=== PATIENT | male | born 1940 | race Caucasian/White ===

== ENCOUNTER 2020-09-07 14:30 | Inpatient (IN) | payer MEDICARE, OTHER ==
[~2020-09-07] VITALS: Ht 172.7 cm; Wt 70.1 kg
[2020-09-07 16:05] VITALS: BP 124/68
[2020-09-07] MEDS ORDERED: PRIM50TA24 PO (16:14)
[2020-09-07] MEDS ORDERED: MAGN400O7 PO (16:14)
[2020-09-07] MEDS ORDERED: AMLO-186 PO (16:14)
[2020-09-07] MEDS ORDERED: OLAN10TA5 PO (16:14)
[2020-09-07] MEDS ORDERED: ALLO100T PO (16:14)
[2020-09-07] MEDS ORDERED: RISP0.5T24 PO (16:14)
[2020-09-07] MEDS ORDERED: LITH150C PO (16:14)
[2020-09-07] MEDS ORDERED: GABA600T7 PO (16:14)
[2020-09-07] MEDS ORDERED: NICO1PAT25 TP (16:14)
[2020-09-07] MEDS ORDERED: ATORVASTATIN CA80 MG PO (16:14)
[2020-09-07] MEDS ORDERED: PHEN28OI8 RC (16:14)
[2020-09-07] MEDS ORDERED: LITH300T3 PO (16:14)
[2020-09-07] MEDS ORDERED: MEMA10TA PO (16:14)
[2020-09-07] MEDS ORDERED: MENT118G TP (16:14)
[2020-09-07] MEDS ORDERED: ACET325T21 PO (16:14)
[2020-09-07 20:09] VITALS: BP 183/71
[2020-09-07] MEDS ORDERED: ACETAMINOPHEN 325 MG TABLET PO PRN (20:30)
[2020-09-07] MEDS ORDERED: MAGNESIUM HYDROXIDE 2,400 MG/30 ML ORAL.SUSP. PO PRN (20:30)
[2020-09-07] MEDS ORDERED: risperiDONE 0.5 MG TABLET. PO PRN (20:30)
[2020-09-07] MEDS ORDERED: MEMANTINE 10 MG TABLET. PO SCH (21:00)
[2020-09-07] MEDS ORDERED: LITHIUM CARBONATE 300 MG TABLET PO SCH ×2 (21:00)
[2020-09-07] MEDS ORDERED: ATORVASTATIN CALCIUM 20 MG TABLET PO SCH (21:00)
[2020-09-07] MEDS ORDERED: PRIMIDONE 50 MG TABLET PO SCH (21:00)
[2020-09-07] MEDS ORDERED: GABAPENTIN 300 MG CAPSULE. PO SCH (21:00)
[2020-09-07 21:57] LABS: BASO # 0.1 x10^3/uL (0.0-0.2); BASO % 2 % (0-3); EOS # 0.2 x10^3/uL (0.0-0.7); EOS % 3 % (0-3); HEMATOCRIT 27.3 % (39.0-53.0); HEMOGLOBIN 8.7 g/dL (13.0-17.5); LYMPH # 1.4 x10^3/uL (1.0-4.8); LYMPH % 21 % (24-48); MEAN CORPUSCULAR HEMOGLOBIN 30 pg (25-35); MEAN CORPUSCULAR HGB CONC 32 g/dL (31-37); MEAN CORPUSCULAR VOLUME 95 fL (79-100); MONO # 0.7 x10^3/uL (0.0-1.1); MONO % 10 % (0-9); NEUT # 4.2 x10^3uL (1.8-7.7); NEUT % 63 % (31-73); PLATELET COUNT 75 x10^3/uL (140-400); RED BLOOD COUNT 2.86 x10^6/uL (4.30-5.70); RED CELL DISTRIBUTION WIDTH 15.6 % (11.5-14.5); WHITE BLOOD COUNT 6.7 x10^3/uL (4.0-11.0)
[2020-09-07 22:07] LABS: ALBUMIN/GLOBULIN RATIO 0.8 (1.0-1.7); CALCIUM 8.2 mg/dL (8.5-10.1); CREATININE 1.5 mg/dL (0.7-1.3); GFR 45.4; MAGNESIUM 2.4 mg/dL (1.8-2.4); POTASSIUM 4.9 mmol/L (3.5-5.1); TOTAL BILIRUBIN 0.1 mg/dL (0.2-1.0); TOTAL PROTEIN 6.7 g/dL (6.4-8.2)
[2020-09-08] MEDS ORDERED: OLAN10TA5 PO (00:56)
[2020-09-08] MEDS ORDERED: GABA-586 PO (00:56)
[2020-09-08] MEDS ORDERED: MEMA10TA PO (00:56)
[2020-09-08] MEDS ORDERED: PRIM50TA24 PO (00:56)
[2020-09-08] MEDS ORDERED: PHEN28OI8 RC (00:56)
[2020-09-08] MEDS ORDERED: RISP0.5T24 PO (00:56)
[2020-09-08] MEDS ORDERED: LITH300C PO ×2 (00:56)
[2020-09-08] MEDS ORDERED: ATORVASTATIN CA80 MG PO (00:56)
[2020-09-08] MEDS ORDERED: MENT118G TP (00:56)
[2020-09-08] MEDS ORDERED: ALLO100T PO (00:56)
[2020-09-08] MEDS ORDERED: AMLO-186 PO (00:56)
[2020-09-08] MEDS ORDERED: amLODIPine BESYLATE 5 MG TABLET PO SCH (09:00)
[2020-09-08] MEDS ORDERED: NON FORMULARY ITEM (Lithium Carbonate 300 MG) PO SCH (09:00)
[2020-09-08] MEDS ORDERED: ALLOPURINOL 100 MG TABLET. PO SCH (09:00)
[2020-09-08 11:54] LABS: THYROID STIM HORMONE (TSH) 2.979 uIU/mL (0.358-3.740)
--- NOTE | 2020-09-08 13:04 | HP ---
ADMIT DATE: 09/07/2020 ATTENDING PHYSICIAN: Dr. Elliott. HISTORY OF PRESENT ILLNESS: The patient is a 79-year-old gentleman slated to go to the Senior Behavioral Unit for agitation and dementia. He was sent to our floor for screening for COVID-19 coronavirus prior to going upstairs. The patient is very pleasant, but he is confused. He has had agitation and does not understand what is going on. PAST MEDICAL HISTORY: Significant for dementia. He has behavioral issues, verbally and sexually aggressive towards staff, tried to hit staff. There is a history of hyperlipidemia, hypertension, gout, neuralgia, constipation, following an abdominal aortic aneurysm without rupture. CURRENT MEDICINES: Reviewed. ALLERGIES: He has no known drug allergies. He was scheduled to take Tylenol, allopurinol, amlodipine, Lipitor, Neurontin, lithium carbonate, magnesium hydroxide, Namenda, menthol, olanzapine, Preparation H, Mysoline and risperidone. SOCIAL HISTORY: He was a smoker in the past. He denies any alcohol use. FAMILY HISTORY: Unobtainable. REVIEW OF SYSTEMS: Basically unobtainable. The patient is ambulatory. He does not appear in acute distress, but he has no insight into why he is here. OBJECTIVE FINDINGS: VITAL SIGNS: Blood pressure was 124/68 mmHg, temperature normal, pulse 88 and regular, and oxygen saturation 97% on room air. HEENT: Head is without trauma. Pupils are reactive. Sclerae nonicteric. Oropharynx clear. NECK: Supple, no bruits identified. LUNGS: Clear. CARDIOVASCULAR: Showed regular heart tones. ABDOMEN: Soft, scaphoid, nontender. EXTREMITIES: Showed 1+ pitting edema. There is no cyanosis. NEUROLOGIC: The patient is ambulatory. Speech is fluent, but he is confused and disoriented. He is not aware of person and time. SKIN: Otherwise warm and dry. PERTINENT LABORATORY STUDIES: Admission hemoglobin was 8.7 g/dL, white count 6700. Creatinine is 1.5 mg percent, sodium 138, potassium was 4.9 mEq. Serology for COVID-19 rapid coronavirus was negative. ASSESSMENT: 1. A 79-year-old gentleman with profound dementia with agitation and behavior issues. 2. Hypertension. 3. Hyperlipidemia. 4. Asymptomatic anemia, etiology is undetermined. PLAN: 1. Admit to the medical unit. 2. Await COVID-19 swab. 3. Home meds continued. 4. He will go upstairs to the Senior Behavioral Unit when the COVID swab is available. KAYCE ELLIOTT MD DR: TALHA/oliver JOB#: [id number] / [id number]
--- NOTE | 2020-09-08 20:05 | DS ---
DATE OF DISCHARGE: 09/07/2020 FINAL DISCHARGE DIAGNOSES: 1. Dementia with behavioral issues. 2. Aggressive behavior. 3. Hypertension. 4. Hyperlipidemia. 5. Anemia of chronic disease. HISTORY AND PHYSICAL: This 79-year-old gentleman, senior living patient was sent here for further evaluation. We have seen him before he has been acting aggressively and was inappropriate sexual and violent behavior towards staff. PHYSICAL EXAMINATION: Please see the dictated note. PERTINENT LABORATORY AND X-RAY STUDIES: On this admission, his hemoglobin was 8.7 g/dL, normal MCV, white count 6700. Chemistry panel unremarkable. Creatinine is 1.5 mg percent. Coronavirus swab was reported rapid test negative. COURSE IN THE HOSPITAL: The patient was admitted. Blood tests were drawn. He has asymptomatic anemia. Home meds were continued. When the coronavirus swab was negative, he was therefore sent upstairs to the Senior Behavior Unit. His discharge meds are unchanged that will include the following. He will continue his allopurinol, Tylenol, amlodipine, Lipitor, lithium carbonate, Namenda, Zyprexa, Mysoline, and risperidone dose is unchanged. For now, we held his Neurontin. The patient was then discharged from our hospital in stable condition. We will follow him closely on the Senior [facility] Unit. KAYCE ELLIOTT MD DR: TALHA/oliver JOB#: [id number] / [id number] DOROTHY Martin MD
--- NOTE | 2020-09-08 21:19 | PDOC ---
Exam Note: Osito Note: This is a late entry for 09/07/2020. Please also refer to the separate dictated note~for this date of service dictated separately. Discussed the patient with Nursing staff reviewed the chart.~Reviewed interim history and current functioning. Reviewed vital signs,~Labs/ Radiology~and current medications noted below. Continue current treatment with the changes noted in the dictated addendum note. Discussed with Carolyn Noble, blood bank coordinator. Reviewed information previously from [facility]. The patient has a long history of bipolar disorder and recent onset of dementia which has been progressing. He has been agitated, aggressive, disruptive, thus resulting in this referral. He came to the Medical/Surgical Floor for COVID screening and once that was negative he transitions to the Senior Behavioral Health Unit. Assessment: Vital Signs/I&O: Vital Signs Date Time Temp Pulse Resp B/P (MAP) Pulse Ox O2 Delivery O2 Flow Rate FiO2 09/07/20 20:09 98.1 82 22 183/71 (108) 92 Room Air I & O 09/07/20 09/07/20 09/08/20 15:00 23:00 07:00 Intake Total 720 ml Balance 720 ml Current Medications: I have reviewed the current psychotropics carefully including drug interactions. Risk benefit ratio favors no change other than as noted in my dictated progress note. Diagnosis: Problems: (1) Bipolar disorder, current episode manic severe with psychotic features (2) Major neurocognitive disorder (3) Dementia in Alzheimer's disease with delusions (4) Dementia in Alzheimer's disease with depression (5) Dementia in Alzheimer's disease with early onset with behavioral disturbance (6) Dementia, vascular, with delusions (7) Dementia, vascular, with depression (8) Impulse control disorder, unspecified (9) Anxiety disorder, unspecified DOROTHY CHURCHILL MD Sep 08, 2020 21:19
[2020-10-05] MEDS ORDERED: TRAZ-120 PO ×2 (11:47)
== END 2020-09-07 23:29 | DRG 885 ==
LOC: 1 SOUTH 14:30
PROVIDERS: ADMIT Hospitalist; ATTEND Hospitalist
DX: F31.2 Bipolar disorder, current episode manic severe with psychotic features (principal); F02.81 Dementia in other diseases classified elsewhere, unspecified severity, with behavioral disturbance; F01.51 Vascular dementia, unspecified severity, with behavioral disturbance; D63.8 Anemia in other chronic diseases classified elsewhere; E78.5 Hyperlipidemia, unspecified; F63.9 Impulse disorder, unspecified; F41.9 Anxiety disorder, unspecified; G30.9 Alzheimer's disease, unspecified; M10.9 Gout, unspecified; I10 Essential (primary) hypertension; Z20.828 Contact with and (suspected) exposure to other viral communicable diseases; Z87.891 Personal history of nicotine dependence; M79.2 Neuralgia and neuritis, unspecified
CPT/HCPCS: 36415; 80053; 80061; 83735; 84443; 85025; 85379; 87426; 93005; U0003

== ENCOUNTER 2020-09-07 23:37 | Inpatient (IN) | payer MEDICARE, OTHER ==
[~2020-09-07] VITALS: Ht 162.6 cm; Wt 70.6 kg
[~2020-09-07 23:37] MED LIST: ACET325T21 PO; ALLO100T PO; AMLO-186 PO; ATORVASTATIN CA80 MG PO; GABA600T7 PO; LITH150C PO; LITH300T3 PO; MAGN400O7 PO; MEMA10TA PO; MENT118G TP; NICO1PAT25 TP; OLAN10TA5 PO; PHEN28OI8 RC; PRIM50TA24 PO; RISP0.5T24 PO
[2020-09-07 23:46] VITALS: BP 107/66
[2020-09-08] MEDS ORDERED: MAG HYDROX/AL HYDROX/SIMETH 30 ML ORAL.SUSP PO PRN (00:30)
[2020-09-08] MEDS ORDERED: METHYL SALICYLATE/MENTHOL TOPICAL OINTMENT 57GM TUBE. TP PRN (00:30)
[2020-09-08] MEDS ORDERED: ATORVASTATIN CA80 MG PO (00:56)
[2020-09-08] MEDS ORDERED: PHEN28OI8 RC (00:56)
[2020-09-08] MEDS ORDERED: RISP0.5T24 PO (00:56)
[2020-09-08] MEDS ORDERED: OLAN10TA5 PO (00:56)
[2020-09-08] MEDS ORDERED: GABA-586 PO (00:56)
[2020-09-08] MEDS ORDERED: ALLO100T PO (00:56)
[2020-09-08] MEDS ORDERED: MENT118G TP (00:56)
[2020-09-08] MEDS ORDERED: AMLO-186 PO (00:56)
[2020-09-08] MEDS ORDERED: LITH300C PO ×2 (00:56)
[2020-09-08] MEDS ORDERED: PRIM50TA24 PO (00:56)
[2020-09-08] MEDS ORDERED: MEMA10TA PO (00:56)
--- NOTE | 2020-09-08 04:52 | NUR ---
/Admission Note with Justification for Admission to [facility] Patient admitted to [facility] for protective oversight for emergency stabilization of acute psychiatric crisis. Pt admitted from: [address] Mode of arrival: wheelchair Accompanied By: [facility] Staff Precipitating behaviors that initiated intake and admission: Non compliant with medications, verbally and sexually aggressive toward staff, attempting to hit staff, increased agitation Description of failure of out patient attempts at stabilization in previous setting list behavior and medication trials: sent to ER on 09/03/20, lithium started Behaviors and assessment findings upon admission: Argumentative and verbally aggressive with first interactions with staff on unit. Continues inappropriate sexual behaviors while on unit. Patient has pulled his genitals out numerous times while standing in his doorway and while talking with staff. The patient has attempted to grab female staff genitals numerous times. Compliant with assessment. No wounds found, Lungs clear, heart regular, bowels active. Plan: Admit for protective oversight for adjustment and stabilization of medications, behaviors and mood. Intense treatment regimen including groups, medication adjustments, therapy, consistent regimen for ADL's, self care, and sleep hygiene. Daily monitoring by Inpatient staff, Psychiatry, and Medical Physician.
--- NOTE | 2020-09-08 05:57 | EKG ---
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
[2020-09-08 06:00] VITALS: BP 151/82
[2020-09-08] MEDS: MAGNESIUM HYDROXIDE 2,400 MG/30 ML ORAL.SUSP. PO PRN (06:13)
--- NOTE | 2020-09-08 09:40 | NUR ---
Patient has been provided with Practical Counseling for tobacco cessation. It included a face to face interaction and the following was discussed: Recognizing danger situations, Developing coping skills,Basic cessation information. Will follow for discharge needs and discharge planning.
[2020-09-08] MEDS ORDERED: risperiDONE 0.5 MG TABLET. PO PRN (11:00)
[2020-09-08] MEDS ORDERED: NON FORMULARY ITEM (Menthol (Biofreeze) 1 APP) TP PRN (11:00)
[2020-09-08] MEDS: NICOTINE 14MG PATCH. TD SCH (12:11)
--- NOTE | 2020-09-08 13:00 | NUR ---
Pt is confused and labile. He will be cooperative then demanding, yelling, flip staff off, call staff names. He is fixated on a wound on his penis and getting topical medication for it. No sexually inappropriate behaviors thus far this shift. He is delusional and believes there was a TV and phone in his room last night. He will redirect well at times and other times it takes staff a lot of encouragement. He is compliant with his medication and assessment.
--- NOTE | 2020-09-08 15:37 | NUR ---
Pt has disrobed, wandering the unit, he was intrusive the environmental service staff and others. When staff attempted to redirect him he began to yell "fuck you." "shove it up your ass." "shove it up here" and then grab his penis. He flipped staff off. Pt taken to the [facility] for deescalation. Dr. Macias pageriaz and new order received for zyprexa zydis 5mg q 2 hours prn max dose 20mg in 24 hours.
[2020-09-08 15:55] VITALS: BP 125/67
[2020-09-08 17:18] LABS: BILIRUBIN,URINE NEG (NEG); CLARITY,URINE CLEAR; COLOR,URINE STRAW; GLUCOSE,URINE NEG (NEG); NITRITE,URINE NEG (NEG); UROBILINOGEN,URINE 0.2 mg/dL (0.2 mg/dL)
[2020-09-08 17:19] LABS: BACTERIA,URINE 0 /HPF (0-FEW); RBC,URINE 0 /HPF (0-2); WBC,URINE OCC /HPF (0-4)
[2020-09-08] MEDS: traZODone 50 MG TABLET. PO PRN (20:59)
[2020-09-08] MEDS: LITHIUM CARBONATE 300 MG TABLET PO SCH (20:59)
[2020-09-08] MEDS: MEMANTINE 10 MG TABLET. PO SCH (20:59)
[2020-09-08] MEDS: ATORVASTATIN CALCIUM 20 MG TABLET PO SCH (20:59)
--- NOTE | 2020-09-08 20:59 | PDOC ---
Exam Note: Osito Note: Please also refer to the separate dictated note~for this date of service dictated separately.~Patient seen individually. Discussed the patient with Nursing staff reviewed the chart.~Reviewed interim history and current functioning. Reviewed vital signs,~Labs/ Radiology~and current medications noted below. Continue current treatment with the changes noted in the dictated addendum note Assessment: Vital Signs/I&O: Vital Signs Date Time Temp Pulse Resp B/P (MAP) Pulse Ox O2 Delivery O2 Flow Rate FiO2 09/08/20 15:55 98.0 77 20 125/67 (86) 98 Room Air Labs: Laboratory Tests Test 09/08/20 07:54 09/08/20 16:16 Iron Level 106 ug/dL (65-175) Total Iron Binding Capacity 249 ug/dL (250-450) L Iron Saturation 43 % (15-34) H [place] Level 0.9 mmol/L (0.6-1.2) [place] Last Dose Date 09/07/20 [place] Last Dose Time 2100 Urine Collection Type Unknown Urine Color Straw Urine Clarity Clear Urine pH 8.0 Urine Specific [place] 1.015 Urine Protein Neg (NEG-TRACE) Urine Glucose (UA) Neg mg/dL (NEG) Urine Ketones (Stick) Neg mg/dL (NEG) Urine Blood Neg (NEG) Urine Nitrite Neg (NEG) Urine Bilirubin Neg (NEG) Urine Urobilinogen Dipstick 0.2 mg/dL (0.2 mg/dL) Urine Leukocyte Esterase Neg (NEG) Urine RBC 0 /HPF (0-2) Urine WBC Occ /HPF (0-4) Urine Squamous Epithelial Cells None /LPF Urine Bacteria 0 /HPF (0-FEW) Current Medications: Meds: Current Medications Medications (Trade) Dose Ordered Sig/Mackenzie Route PRN Reason Start Time Stop Time Status Last Admin Dose Admin Magnesium Hydroxide (Milk Of Magnesia) 2,400 mg PRN QHS PRN PO CONSTIPATION 09/08/20 00:30 09/08/20 06:13 Nicotine (Nicoderm Cq 14mg Patch) 1 patch DAILY TD 09/08/20 09:00 09/08/20 12:11 Olanzapine (ZyPREXA ZYDIS) 5 mg PRN Q2HR PRN PO PSYCHOSIS 09/08/20 15:45 09/08/20 15:44 I have reviewed the current psychotropics carefully including drug interactions. Risk benefit ratio favors no change other than as noted in my dictated progress note. DOROTHY CHURCHILL MD Sep 08, 2020 20:59
[2020-09-08] MEDS: GABAPENTIN 300 MG CAPSULE. PO SCH (21:00)
[2020-09-08] MEDS ORDERED: risperiDONE 0.5 MG TABLET. PO SCH (21:00)
[2020-09-08] MEDS: PRIMIDONE 50 MG TABLET PO SCH (21:00)
--- NOTE | 2020-09-08 21:33 | HP ---
ADMIT DATE: 09/08/2020 PSYCHIATRIC ADMISSION/EVALUATION IDENTIFYING DATA: The patient is a 79-year-old male referred to us from the [facility] by his primary care physician on account of an acute exacerbation of his bipolar disorder with psychotic features and worsening dementia. The patient was seen individually, discussed with nursing staff, reviewed the chart, previously discussed with Carolyn Tao, administrative coordinator and reviewed. Reviewed detailed information from [facility] and the patient was seen on telehealth services 09/08/2020 for this evaluation. CHIEF COMPLAINT: "I have had bipolar disorder since my mid 30s. I have been here 6 weeks." In fact, the patient was admitted late last night. HISTORY OF PRESENT ILLNESS: The patient has a long history of bipolar disorder and despite being stable on lithium 300 mg twice a day with a level of 0.9 together with Zyprexa 10 mg at bedtime and Risperdal p.r.n. He has been increasingly grandiose, paranoid, psychotic, anxious. He believes his abdominal aortic aneurysm will burst. He is noncompliant with his medications. He is verbally and sexually aggressive towards staff. He has been threatening to harm staff, tried to hit staff. He has been increasingly agitated, having sleep changes, marked paranoia. Behaviors have been deemed dangerous, unmanageable at the facility resulting in this referral. He initially came to the medical/surgical floor, had a COVID screen, which was negative late evening of 09/07/2020 when he transitioned to Senior Behavioral [facility] Unit. PAST PSYCHIATRIC HISTORY: As above. MEDICAL HISTORY: Positive for hyperlipidemia, hypertension, gout, neuralgia, history of recurrent UTIs, chronic constipation, abdominal aortic aneurysm without rupture. DIET: Regular. Takes medications whole, ambulates up ad rita. UA is pending collection. [place] level 0.9. ALLERGIES: Negative. CODE STATUS: Full code. CURRENT PSYCHOTROPICS: [place] carbonate 300 mg twice a day, gabapentin 300 mg at bedtime, Namenda 10 mg b.i.d., Risperdal 0.5 mg q. 8 hours p.r.n. psychosis, Zyprexa 10 mg at bedtime. Also, nursing staff had called me as an emergency earlier in the day today due to his marked agitation, sexually inappropriate, aggressive, disruptive behaviors on the unit and we added Zyprexa 2.5 mg q. 2 hours p.r.n. psychosis, agitation, max 20 mg in 24 hours. FAMILY HISTORY: Noncontributory. SOCIAL HISTORY: No history of alcohol, drug abuse, physical, sexual or elder abuse. He is not known to be a perpetrator. REACTION TO HOSPITALIZATION: The patient accepting of it. ASSETS: Supportive living at the facility. MENTAL STATUS EXAMINATION: The patient was seen individually on telehealth rounds evening of 09/08/2020. He is oriented to himself and situation, but felt he has been here about 6 weeks. Memory is impaired. Speech is coherent, rapid at times. Earlier in the day, he was agitated, aggressive, yelling, undressing, disrobing, sexually inappropriate, but better after Zyprexa p.r.n. Attention span short. Language function intact. Mood and affect remains labile. No active suicidal or homicidal ideation. LABORATORY DATA: Reviewed. IMPRESSION: Bipolar 1 disorder, manic with psychotic features; major neurocognitive disorder, probably vascular with delusion, behavioral disturbance; anxiety disorder, unspecified; impulse control disorder, unspecified. Rest as above. PLAN: Admit to Geropsychiatry Unit at [facility]. I will see the patient daily individually from a psychiatric standpoint. Medical followup with Dr. Kessler/Dr. Soliz. We will continue lithium, Neurontin, Namenda, at current dosage. Start trazodone 50 mg at bedtime p.r.n., may repeat x 2 for insomnia as he slept very poorly last night. We will also change Zyprexa 10 mg at bedtime to Risperdal 1 mg at bedtime schedule. Consider Depakote as a mood stabilizer. ESTIMATED LENGTH OF STAY: 10-12 days. DISPOSITION: Plans back to nursing facility when stable. DOROTHY CHURCHILL MD DR: FADI/oliver JOB#: [id number] / [id number]
--- NOTE | 2020-09-08 23:54 | NUR ---
Pt has been highly labile this evening. Pt is rapid cycling; manic at times, tearful and flirtatious. Pt A/O x4, states he is here because he is "bipolo." No sexual inappropriateness this evening. Compliant with HS medications. PRN Trazodone administered with HS medications.
[2020-09-09 05:39] VITALS: BP 138/84
[2020-09-09 05:45] LABS: HEMOGLOBIN A1C 5.5 % (4.8-5.6)
--- NOTE | 2020-09-09 06:25 | NUR ---
Pt restless and irritable this morning. Pt taken to the [facility] where he proceeded to curse at staff and flip staff off repeatedly. At one point, pt pulled his pants down stating he was going to defecate on the floor. Pt sparring with imaginary opponent, as if he is in a boxing ring. Will continue to monitor.
[2020-09-09] MEDS: LITHIUM CARBONATE 300 MG TABLET PO SCH ×2 (08:20→20:19)
[2020-09-09] MEDS: PRIMIDONE 50 MG TABLET PO SCH ×2 (08:21→20:50)
[2020-09-09] MEDS: MEMANTINE 10 MG TABLET. PO SCH ×2 (08:22→20:19)
[2020-09-09] MEDS: amLODIPine BESYLATE 5 MG TABLET PO SCH (08:22)
[2020-09-09] MEDS: NICOTINE 14MG PATCH. TD SCH (08:24)
[2020-09-09] MEDS: ALLOPURINOL 100 MG TABLET. PO SCH (08:24)
--- NOTE | 2020-09-09 10:35 | NUR ---
Pt was in the [facility] this am. He removed his pants X 3 and attempted to defecate on the floor. He was placed in a one piece outfit. He demanded a shower and to shave. Staff redirected him and informed him that he may not demand things however if he asks for things staff my assist him. He stated "fuck you." and flipped off staff.
--- NOTE | 2020-09-09 10:48 | NUR ---
Pt is compliant with his medication and assessment today.
--- NOTE | 2020-09-09 12:15 | NUR ---
BURR MACHINE OPERATOR asked pt to return to his room so he may eat lunch as it was lunch time and staff was serving meals. Pt looked at another male pt gestured toward ERICA and stated "boy, she's such a bitch." ERICA informed pt that that language in not acceptable and to please return to his room. Pt returned to his room and is currently eating his lunch.
--- NOTE | 2020-09-09 13:30 | NUR ---
Pt is in the [facility]. He is making sexually in appropriate comments to a female nurse at the nurses station stating "Go suck his eula." Then gesturing to where a male nurse was sitting." Pt then made masturbating motion with his hand and stated "you got him in 15 minutes good." When nurse did not engage with pt he began to sing "I want her pussy she wants my eula, she licks it good. That's alright, that alright. I suck your eula for you. I get your eula up hard all I have to do is lick it up hard." Nurse continued to not engage with pt and he stated: "I just try to get you to suck a big eula someplace that's all." "If you keep me over here more than 25 minutes you're going to go to [facility]." Pt then sat in a chair and began to randomly laugh out loud. Pt is currently sitting in a chair in the [facility] occasionally singing and inserted inappropriate lyrics at times and attempting to engage female nurse by insulting her.
--- NOTE | 2020-09-09 14:37 | NUR ---
Pt continues to demand things from staff, yell sexual obscenities at nursing staff and expose his penis and shake it at the nurse. For example: "give me water bitch, (when the nurse did not answer him he stated:) how about whore, is that better?" When a male nurse walked by pt yelled "you two go suck and fuck each other." If staff does not engage with pt he will then go sit in the chair in the west hallway.
--- NOTE | 2020-09-09 15:00 | NUR ---
Pt urinated on the floor int he quiet frances.
[2020-09-09 19:35] VITALS: BP 150/74
[2020-09-09] MEDS: GABAPENTIN 300 MG CAPSULE. PO SCH (20:19)
[2020-09-09] MEDS: ATORVASTATIN CALCIUM 20 MG TABLET PO SCH (20:19)
[2020-09-09] MEDS: risperiDONE 0.5 MG TABLET. PO SCH (20:19)
[2020-09-09] MEDS: DIVALPROEX ER 500 MG TAB.ER.24H PO SCH (20:21)
--- NOTE | 2020-09-09 21:06 | PDOC ---
Exam Note: Osito Note: Please also refer to the separate dictated note~for this date of service dictated separately.~Patient seen individually. Discussed the patient with Nursing staff reviewed the chart.~Reviewed interim history and current functioning. Reviewed vital signs,~Labs/ Radiology~and current medications noted below. Continue current treatment with the changes noted in the dictated addendum note Assessment: Vital Signs/I&O: Vital Signs Date Time Temp Pulse Resp B/P (MAP) Pulse Ox O2 Delivery O2 Flow Rate FiO2 09/09/20 19:35 98.0 71 150/74 (99) 94 09/09/20 05:39 20 09/08/20 15:55 Room Air I & O 0 09/08/20 09/08/20 09/09/20 15:00 23:00 07:00 Intake Total 840 ml 980 ml Balance 840 ml 980 ml Current Medications: Meds: Current Medications Medications (Trade) Dose Ordered Sig/Mackenzie Route PRN Reason Start Time Stop Time Status Last Admin Dose Admin Allopurinol (Zyloprim) 100 mg DAILY PO 09/09/20 09:00 09/09/20 08:24 Amlodipine Besylate (Norvasc) 5 mg DAILY PO 09/09/20 09:00 09/09/20 08:22 [place] Carbonate 300 mg DAILY PO 09/09/20 09:00 09/09/20 08:20 Risperidone (RisperDAL) 1.5 mg HS PO 09/09/20 21:00 09/09/20 20:19 Divalproex Sodium (Depakote Er) 500 mg QHS PO 09/09/20 21:00 09/09/20 20:21 I have reviewed the current psychotropics carefully including drug interactions. Risk benefit ratio favors no change other than as noted in my dictated progress note. Diagnosis: Problems: (1) Impulse control disorder, unspecified (2) Anxiety disorder, unspecified (3) Dementia, vascular, with depression (4) Dementia, vascular, with delusions (5) Bipolar disorder, current episode manic severe with psychotic features (6) Dementia in Alzheimer's disease with depression (7) Dementia in Alzheimer's disease with delusions (8) Major neurocognitive disorder (9) Dementia in Alzheimer's disease with early onset with behavioral disturbance DOROTHY CHURCHILL MD Sep 09, 2020 21:06
--- NOTE | 2020-09-09 22:52 | NUR ---
Pt wandering around unit, continues to be intrusive and then becomes agitated with redirection. Pt yelling out numerous times and was taken to the west hallway. Once in the frances, pt removed his pants and attempted to defecate on the floor. Staff placed pt in a onesie. While staff was attempting to dress pt in the onesie, pt stated that staff "looked like two monkeys fucking." Pt compliant with HS medications and was thankful after he received them. During time in the hallway, pt cursed and flipped off staff and complained about not being able to smoke here. Pt currently sleeping in his room.
[2020-09-10 06:00] VITALS: BP 156/71
--- NOTE | 2020-09-10 08:02 | NUR ---
Pt is currently in the [facility]. STERILE TECHNICIAN went in the [facility] to take items into the soiled utility room. The pt stated to the STERILE TECHNICIAN he saw someone on the ground across the frances. The STERILE TECHNICIAN looked across the frances and pt exited the [facility] when STERILE TECHNICIAN looked away. The STERILE TECHNICIAN redirected the pt back to the hallway. The pt then hit his body against the door and exited the hallway, he then became aggressive and began punching the STERILE TECHNICIAN. The STERILE TECHNICIAN called out for help and grabbed the pts wrists. The pt lost his balance and he was lowered to the ground by the STERILE TECHNICIAN. Staff then escorted the pt back to the [facility] where he continued to pace and bull walk in front of the nurses station, verbally assault staff stating "fuck you." Flip staff off and air punch an imaginary opponent.
[2020-09-10] MEDS: LITHIUM CARBONATE 300 MG TABLET PO SCH ×2 (08:25→20:21)
[2020-09-10] MEDS: MEMANTINE 10 MG TABLET. PO SCH ×2 (08:25→20:21)
[2020-09-10] MEDS: PRIMIDONE 50 MG TABLET PO SCH ×2 (08:25→20:22)
[2020-09-10] MEDS: ALLOPURINOL 100 MG TABLET. PO SCH (08:26)
[2020-09-10] MEDS: NICOTINE 14MG PATCH. TD SCH (08:26)
[2020-09-10] MEDS: amLODIPine BESYLATE 5 MG TABLET PO SCH (08:26)
--- NOTE | 2020-09-10 09:46 | NUR ---
Pt has a productive cough and spit on the floor. Nurse informed him that is not appropriate and to ask for tissues or a trash can next time. Pt then coughed and spit on the floor again. He then got up began air boxing, starting pacing and singing "Saygent here I come."
--- NOTE | 2020-09-10 12:22 | NUR ---
Pt approached SW stating that he needed to talk to her. SW informed pt that he would be working with Carolyn and pt stated "are you in charge? Are you in charge of these people because you have some bad pennies". SW informed pt that she is not in charge, but would inform the unit technician.
[2020-09-10] MEDS ORDERED: risperiDONE 0.5 MG TABLET. PO ONE (12:30)
--- NOTE | 2020-09-10 12:41 | NUR ---
WEEKLY ACTIVITY THERAPY NOTE Date of Admission: 09/07 Date of AT Assessment: TBD Precipitating behaviors that initiated intake and admission: Non compliant with medications, verbally and sexually aggressive toward staff, attempting to hit staff, increased agitation Goal aimed: TBD Initial Goal: TBD Weekly progress towards goal: NA Group participation level: NA Weekly highlights: arrived on unit Behaviors observed: in secured hallways, inappropriate with staff, reports of disrobing Plan: conduct assessment Beneficial adaptations:
--- NOTE | 2020-09-10 13:00 | NUR ---
ACTIVITY THERAPY ASSESSMENT Completed based on notes due to precautions regarding unit Covid testing. Reports indicate Pt. has been intrusive, sexually inappropriate, demanding, argumentative, and cussing at staff while on the unit. Pt. wanders and has attempted to disrobe at times and tried to defecate on the floor at one point. He is delusional and can be resistive at times. He has been seen flipping off staff and acting out a punch through the air at them. He has been medication compliant and was reported to be A/O x 4. Pt. 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 Initial goal aimed to increase relaxation: Pt. will participate in at leas one individual Activity Therapy Session before discharge. Addendum: 09/17/20 at 1609 by DANG WHIPPLE ACT Goal changed 09/17: Pt. will participate in at least three individual or Activity Therapy sessions per week
[2020-09-10 15:54] VITALS: BP 160/80
--- NOTE | 2020-09-10 16:22 | NUR ---
Spoke to [facility] pt has not had the flu shot while with them. Called pts DPOA to verify if pt has as flu shot else where and if not if pt can have flu shot here.
[2020-09-10] MEDS: GABAPENTIN 300 MG CAPSULE. PO SCH (20:21)
[2020-09-10] MEDS: DIVALPROEX ER 500 MG TAB.ER.24H PO SCH (20:21)
[2020-09-10] MEDS: risperiDONE 0.5 MG TABLET. PO SCH (20:22)
[2020-09-10] MEDS: ATORVASTATIN CALCIUM 20 MG TABLET PO SCH (20:22)
[2020-09-10] MEDS: risperiDONE 2 MG TABLET. PO SCH (20:23)
--- NOTE | 2020-09-10 20:41 | PDOC ---
Exam Note: Osito Note: Please also refer to the separate dictated note~for this date of service dictated separately.~Patient seen individually. Discussed the patient with Nursing staff reviewed the chart.~Reviewed interim history and current functioning. Reviewed vital signs,~Labs/ Radiology~and current medications noted below. Continue current treatment with the changes noted in the dictated addendum note Assessment: Vital Signs/I&O: Vital Signs Date Time Temp Pulse Resp B/P (MAP) Pulse Ox O2 Delivery O2 Flow Rate FiO2 09/10/20 15:54 98.0 90 16 160/80 (106) 97 09/08/20 15:55 Room Air I & O 09/09/20 09/09/20 09/10/20 15:00 23:00 07:00 Intake Total 840 ml 320 ml Balance 840 ml 320 ml Current Medications: Meds: Current Medications Medications (Trade) Dose Ordered Sig/Mackenzie Route PRN Reason Start Time Stop Time Status Last Admin Dose Admin Risperidone (RisperDAL) 1.5 mg HS PO 09/09/20 21:00 09/10/20 23:00 09/10/20 20:22 Divalproex Sodium (Depakote Er) 500 mg QHS PO 09/09/20 21:00 09/10/20 20:21 Risperidone (RisperDAL) 0.5 mg 1X ONCE PO 09/10/20 12:30 09/10/20 12:31 DC 09/10/20 13:41 I have reviewed the current psychotropics carefully including drug interactions. Risk benefit ratio favors no change other than as noted in my dictated progress note. 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
--- NOTE | 2020-09-10 23:29 | NUR ---
Pt wandering around unit, demanding, argumentative and intrusive at times. Compliant with HS medications. No sexually inappropriateness noted.
--- NOTE | 2020-09-11 02:34 | NUR ---
Pt awake, restless in bed and repeatedly setting off bed alarm. Pt yelling out and singing songs. PRN Zyprexa administered.
[2020-09-11 06:29] VITALS: BP 108/68
--- NOTE | 2020-09-11 07:38 | PDOC ---
Exam Note: Osito Note: This note is a late entry for 09/09/2020 covers elements not covered in my initial note. Subjective: The patient was reviewed on telehealth rounds in the evening of 09/09/2020 with Keyshawn HARO. Discussed with Vivien, reviewed the chart. He slept 6-1/2 hours previous night. The patient has had an extremely difficult day. He has been paranoid, psychotic, sexually inappropriate, making lewd sexual comments between a female nurse and a male nurse. He has been dropping his pants down exposing himself making movements as if he is defecating on the floor. I have reviewed lengthy nursing report regarding all of the above and as Vivien pointed out she was unable to even verbalize what all she has documented because of the lewdness of the entirety of the comments and I will not repeat it here. He has been attempting to urinate on the floor as well. Review of Systems: No CV, , pulmonary, eye system symptoms on review. Mental Status Exam: Oriented to himself and situation. Speech coherent, rapid at times, extremely loud, angry, aggressive, disruptive, making punching gestures, as I interacted with him and sexual comments as well. The patient is extremely erratic. Attention span is short. Language function intact. Mood and affect is extremely grandiose, labile. Abstraction is fair. Computation is impaired. Language function is intact. Attention span is short. Mood and affect anxious. No suicidal or homicidal ideation. Laboratory Data: Reviewed. Impression: Bipolar disorder mixed with psychotic features. Anxiety disorder unspecified. Impulse control disorder unspecified. Plan: I had a very lengthy review of the psychotropics and drug interactions. Despite therapeutic level of lithium and 1 mg h.s. Risperdal along with gabapentin 300 mg h.s., he remains extremely manic, grandiose, psychotic. We will add Depakote ER 500 mg p.o. h.s. Check CBC, CMP, valproic acid level, ammonia level in 3 days. Increase Risperdal to 1.5 mg p.o. h.s. and may increase it further in due course. Assessment: Vital Signs/I&O: Vital Signs Date Time Temp Pulse Resp B/P (MAP) Pulse Ox O2 Delivery O2 Flow Rate FiO2 09/11/20 06:29 97.6 69 18 108/68 (81) 94 09/08/20 15:55 Room Air I & O 09/10/20 09/10/20 09/11/20 15:00 23:00 07:00 Intake Total 840 ml 840 ml Balance 840 ml 840 ml Current Medications: Meds: Current Medications Medications (Trade) Dose Ordered Sig/Mackenzie Route PRN Reason Start Time Stop Time Status Last Admin Dose Admin Risperidone (RisperDAL) 0.5 mg 1X ONCE PO 09/10/20 12:30 09/10/20 12:31 DC 09/10/20 13:41 I have reviewed the current psychotropics carefully including drug interactions. Risk benefit ratio favors no change other than as noted in my dictated progress note. 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
--- NOTE | 2020-09-11 07:55 | PDOC ---
Exam Note: Osito Note: This note is a late entry for 09/10/2020 covers elements not covered in my initial note. Subjective: The patient was seen face to face in the morning of 09/10/2020 for treatment team meeting with Marlene, dialysis social worker, Ally, activity therapy and Vivien HARO. Discussed with nursing staff, reviewed the chart. He slept 4 hours previous night. Appetite is 75%. The patient was yelling previous night, psychotic, sexually inappropriate, disrobing, flipping of nursing staff, specifically female staff. He had to be in the [facility], physically aggressive. Review of Systems: No CV, , pulmonary, eye system symptoms on review. He has vague somatic symptoms. Mental Status Exam: Oriented to himself and situation. Speech coherent, rapid at times. He is quite grandiose but little better than before by the time I saw him in the evening, but this morning he was quite psychotic, manic. Attention span is short. Language function intact. Intellect average. Insight is limited. Judgment marginal. No suicidal or homicidal ideation. Laboratory Data: Reviewed. Impression: Bipolar disorder mixed with psychotic features. Anxiety disorder unspecified. Impulse control disorder unspecified. Plan: Increase Risperdal from total of 1.5 mg h.s. to 2 mg a day i.e. 0.5 mg in the day and 1.5 mg at night for today and then starting tomorrow 2 mg h.s. Continue lithium at current dosage, gabapentin, Namenda, and Depakote was initiated as mood stabilizer. Follow labs level. Adjust as clinically indicated. Assessment: Vital Signs/I&O: Vital Signs Date Time Temp Pulse Resp B/P (MAP) Pulse Ox O2 Delivery O2 Flow Rate FiO2 09/11/20 06:29 97.6 69 18 108/68 (81) 94 09/08/20 15:55 Room Air I & O 09/10/20 09/10/20 09/11/20 15:00 23:00 07:00 Intake Total 840 ml 840 ml Balance 840 ml 840 ml Current Medications: Meds: Current Medications Medications (Trade) Dose Ordered Sig/Mackenzie Route PRN Reason Start Time Stop Time Status Last Admin Dose Admin Risperidone (RisperDAL) 0.5 mg 1X ONCE PO 09/10/20 12:30 09/10/20 12:31 DC 09/10/20 13:41 I have reviewed the current psychotropics carefully including drug interactions. Risk benefit ratio favors no change other than as noted in my dictated progress note. 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
[2020-09-11] MEDS: ALLOPURINOL 100 MG TABLET. PO SCH (09:18)
[2020-09-11] MEDS: NICOTINE 14MG PATCH. TD SCH (09:18)
[2020-09-11] MEDS: amLODIPine BESYLATE 5 MG TABLET PO SCH (09:18)
[2020-09-11] MEDS: PRIMIDONE 50 MG TABLET PO SCH ×2 (09:18→20:00)
[2020-09-11] MEDS: LITHIUM CARBONATE 300 MG TABLET PO SCH ×2 (09:18→20:00)
[2020-09-11] MEDS: MEMANTINE 10 MG TABLET. PO SCH ×2 (09:18→19:59)
[2020-09-11] MEDS: MAGNESIUM HYDROXIDE 2,400 MG/30 ML ORAL.SUSP. PO PRN (09:57)
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
[2020-09-11 15:34] VITALS: BP 127/71
--- NOTE | 2020-09-11 16:38 | NUR ---
Patient has been restless, wandering, attention seeking, hyperverbal, cooperative, and forgetful this shift. Patient oriented to self, place, and day; he did have difficulty with date and situation. He was been delusional, believing another patient is his ex-; and repeatedly requesting the same item. This morning he was provided with a tube of skin lotion, he had emptied the tube by 13:00. He frequently wanders in the frances and is social with peers and staff. During his shower, he made a remark that his ex- was the best sex he ever had; otherwise he has not made any inappropriate remarks. Patient has also made the statement that he met [facility] and was given $50,000 to invest. He has been compliant with medications and assessments. Will continue to monitor and report to oncoming shift.
[2020-09-11] MEDS: DIVALPROEX ER 500 MG TAB.ER.24H PO SCH (19:58)
[2020-09-11] MEDS: ATORVASTATIN CALCIUM 20 MG TABLET PO SCH (19:59)
[2020-09-11] MEDS: GABAPENTIN 300 MG CAPSULE. PO SCH (20:00)
[2020-09-11] MEDS: risperiDONE 2 MG TABLET. PO SCH (20:01)
--- NOTE | 2020-09-11 20:56 | PDOC ---
Exam Note: Osito Note: Please also refer to the separate dictated note~for this date of service dictated separately.~Patient seen individually. Discussed the patient with Nursing staff reviewed the chart.~Reviewed interim history and current functioning. Reviewed vital signs,~Labs/ Radiology~and current medications noted below. Continue current treatment with the changes noted in the dictated addendum note Assessment: Vital Signs/I&O: Vital Signs Date Time Temp Pulse Resp B/P (MAP) Pulse Ox O2 Delivery O2 Flow Rate FiO2 09/11/20 15:34 97.2 82 16 127/71 (89) 98 09/08/20 15:55 Room Air I & O 09/10/20 09/10/20 09/11/20 15:00 23:00 07:00 Intake Total 840 ml 840 ml Balance 840 ml 840 ml Current Medications: Meds: Current Medications Medications (Trade) Dose Ordered Sig/Mackenzie Route PRN Reason Start Time Stop Time Status Last Admin Dose Admin Risperidone (RisperDAL) 2 mg HS PO 09/10/20 21:00 09/11/20 20:01 I have reviewed the current psychotropics carefully including drug interactions. Risk benefit ratio favors no change other than as noted in my dictated progress note. Diagnosis: Problems: (1) Impulse control disorder, unspecified (2) Anxiety disorder, unspecified (3) Dementia, vascular, with depression (4) Dementia, vascular, with delusions (5) Bipolar disorder, current episode manic severe with psychotic features (6) Dementia in Alzheimer's disease with depression (7) Dementia in Alzheimer's disease with delusions (8) Major neurocognitive disorder (9) Dementia in Alzheimer's disease with early onset with behavioral disturbance DOROTHY CHURCHILL MD Sep 11, 2020 20:56
--- NOTE | 2020-09-11 21:19 | NUR ---
Nursing Note Pt up and walking around, confused this pm. Takes po meds. Pt walking around with the newspaper stating he's planning our constitution party for tonight. He has the grocery store adds in his hand and is planning the meal for tonight. He asked me to make sure the grill was working and that he needed the bbq tools to cook the steaks for all of us. He asked me to get the salad together and table settings. Pt wanders off making plans and talking about side dishes and dessert.
[2020-09-12] MEDS: traZODone 50 MG TABLET. PO PRN ×2 (01:48→20:19)
[2020-09-12 06:29] VITALS: BP 109/55
[2020-09-12] MEDS: ALLOPURINOL 100 MG TABLET. PO SCH (06:50)
[2020-09-12] MEDS: MEMANTINE 10 MG TABLET. PO SCH ×2 (06:50→20:19)
[2020-09-12] MEDS: LITHIUM CARBONATE 300 MG TABLET PO SCH ×2 (06:50→20:19)
[2020-09-12] MEDS: NICOTINE 14MG PATCH. TD SCH (06:50)
[2020-09-12] MEDS: amLODIPine BESYLATE 5 MG TABLET PO SCH (06:51)
[2020-09-12] MEDS: PRIMIDONE 50 MG TABLET PO SCH ×2 (06:51→20:20)
[2020-09-12 07:18] LABS: BASO # 0.1 x10^3/uL (0.0-0.2); BASO % 1 % (0-3); EOS # 0.2 x10^3/uL (0.0-0.7); EOS % 3 % (0-3); HEMATOCRIT 37.8 % (39.0-53.0); LYMPH # 1.8 x10^3/uL (1.0-4.8); LYMPH % 21 % (24-48); MEAN CORPUSCULAR HEMOGLOBIN 31 pg (25-35); MEAN CORPUSCULAR HGB CONC 32 g/dL (31-37); MEAN CORPUSCULAR VOLUME 97 fL (79-100); MONO # 0.7 x10^3/uL (0.0-1.1); MONO % 8 % (0-9); NEUT # 5.9 x10^3uL (1.8-7.7); NEUT % 67 % (31-73); PLATELET COUNT 264 x10^3/uL (140-400); RED BLOOD COUNT 3.92 x10^6/uL (4.30-5.70); RED CELL DISTRIBUTION WIDTH 15.6 % (11.5-14.5); WHITE BLOOD COUNT 8.7 x10^3/uL (4.0-11.0)
[2020-09-12 07:53] LABS: ALBUMIN 3.5 g/dL (3.4-5.0); ALBUMIN/GLOBULIN RATIO 0.8 (1.0-1.7); ALK PHOS 93 U/L (46-116); ALT (SGPT) 27 U/L (16-63); ANION GAP 7 (6-14); AST (SGOT) 24 U/L (15-37); BLOOD UREA NITROGEN 25 mg/dL (8-26); BUN/CREATININE RATIO 18 (6-20); CALCIUM 8.9 mg/dL (8.5-10.1); CARBON DIOXIDE 30 mmol/L (21-32); CHLORIDE 102 mmol/L (98-107); CREATININE 1.4 mg/dL (0.7-1.3); GFR 49.1; GLUCOSE 104 mg/dL (70-99); POTASSIUM 4.5 mmol/L (3.5-5.1); SODIUM 139 mmol/L (136-145); TOTAL BILIRUBIN 0.3 mg/dL (0.2-1.0); TOTAL PROTEIN 7.8 g/dL (6.4-8.2)
[2020-09-12 07:56] LABS: VAL ACID 24 mcg/mL (50-100)
--- NOTE | 2020-09-12 12:11 | NUR ---
Patient alert but confused and forgetful. Patient is cooperative but unaware of surroundings. Patient takes medications whole with water. No complaints or concerns at this time.
--- NOTE | 2020-09-12 14:54 | NUR ---
Patient became very agitated and started yelling and flipping people off. He was taken to the [facility] to keep him contained and from bothering the other residents. He was given PRN Zyprexa and calmed down. He was able to come back out of the hallway and to his room with no problems after an hour.
[2020-09-12 15:18] VITALS: BP 152/70
--- NOTE | 2020-09-12 18:12 | NUR ---
Per Dr Macias increase depakote to 1000mg QHS. Orders placed and orders for labs in 3 days entered.
--- NOTE | 2020-09-12 18:40 | NUR ---
Per Dr Kessler start patient on ABX for UTI. Orders placed. Not convinced that he has the shingles. May be the end of previous infection. To keep area clean dry and covered. Finish Acyclivor doses. No need for any further treatment.
[2020-09-12] MEDS: GABAPENTIN 300 MG CAPSULE. PO SCH (20:19)
[2020-09-12] MEDS: DIVALPROEX ER 500 MG TAB.ER.24H PO SCH (20:19)
[2020-09-12] MEDS: risperiDONE 2 MG TABLET. PO SCH (20:19)
[2020-09-12] MEDS: ATORVASTATIN CALCIUM 20 MG TABLET PO SCH (20:20)
--- NOTE | 2020-09-12 20:53 | PDOC ---
Exam Note: Osito Note: Please also refer to the separate dictated note~for this date of service dictated separately.~Patient seen individually. Discussed the patient with Nursing staff reviewed the chart.~Reviewed interim history and current functioning. Reviewed vital signs,~Labs/ Radiology~and current medications noted below. Continue current treatment with the changes noted in the dictated addendum note Assessment: Vital Signs/I&O: Vital Signs Date Time Temp Pulse Resp B/P (MAP) Pulse Ox O2 Delivery O2 Flow Rate FiO2 09/12/20 15:18 98.1 74 20 152/70 (97) 94 Room Air I & O 09/11/20 09/11/20 09/12/20 15:00 23:00 07:00 Intake Total 720 ml 360 ml Balance 720 ml 360 ml Labs: Laboratory Tests Test 09/12/20 06:45 09/12/20 07:04 09/12/20 18:40 White Blood Count 8.7 x10^3/uL (4.0-11.0) Red Blood Count 3.92 x10^6/uL (4.30-5.70) L Hemoglobin 12.0 g/dL (13.0-17.5) #L Hematocrit 37.8 % (39.0-53.0) #L Mean Corpuscular Volume 97 fL (79-100) Mean Corpuscular Hemoglobin 31 pg (25-35) Mean Corpuscular Hemoglobin Concent 32 g/dL (31-37) Red Cell Distribution Width 15.6 % (11.5-14.5) H Platelet Count 264 x10^3/uL (140-400) Neutrophils (%) (Auto) 67 % (31-73) Lymphocytes (%) (Auto) 21 % (24-48) L Monocytes (%) (Auto) 8 % (0-9) Eosinophils (%) (Auto) 3 % (0-3) Basophils (%) (Auto) 1 % (0-3) Neutrophils # (Auto) 5.9 x10^3uL (1.8-7.7) Lymphocytes # (Auto) 1.8 x10^3/uL (1.0-4.8) Monocytes # (Auto) 0.7 x10^3/uL (0.0-1.1) Eosinophils # (Auto) 0.2 x10^3/uL (0.0-0.7) Basophils # (Auto) 0.1 x10^3/uL (0.0-0.2) Sodium Level 139 mmol/L (136-145) Potassium Level 4.5 mmol/L (3.5-5.1) Chloride Level 102 mmol/L (98-107) Carbon Dioxide Level 30 mmol/L (21-32) Anion Gap 7 (6-14) Blood Urea Nitrogen 25 mg/dL (8-26) Creatinine 1.4 mg/dL (0.7-1.3) H Estimated GFR (Cockcroft-Gault) 49.1 BUN/Creatinine Ratio 18 (6-20) Glucose Level 104 mg/dL (70-99) H Calcium Level 8.9 mg/dL (8.5-10.1) Total Bilirubin 0.3 mg/dL (0.2-1.0) Aspartate Amino Transferase (AST) 24 U/L (15-37) Alanine Aminotransferase (ALT) 27 U/L (16-63) Alkaline Phosphatase 93 U/L (46-116) Ammonia < 10 mcmol/L (11-34) L < 10 mcmol/L (11-34) L Total Protein 7.8 g/dL (6.4-8.2) Albumin 3.5 g/dL (3.4-5.0) Albumin/Globulin Ratio 0.8 (1.0-1.7) L Valproic Acid Level 24 mcg/mL (50-100) L Valproic Acid Last Dose Date 09/11/20 Valproic Acid Last Dose Time 2100 Current Medications: Meds: Current Medications Medications (Trade) Dose Ordered Sig/Mackenzie Route PRN Reason Start Time Stop Time Status Last Admin Dose Admin Divalproex Sodium (Depakote Er) 1,000 mg QHS PO 09/12/20 21:00 09/12/20 20:19 I have reviewed the current psychotropics carefully including drug interactions. Risk benefit ratio favors no change other than as noted in my dictated progress note. 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
--- NOTE | 2020-09-13 02:28 | NUR ---
Nursing Note The patient was calm and cooperative with cares and medications. The patient took his medication whole. The patient was pleasant during interactions with this nurse and peers. The patient is currently sleeping in his room.
[2020-09-13 04:26] VITALS: BP 96/53
[2020-09-13] MEDS: MEMANTINE 10 MG TABLET. PO SCH ×3 (07:13→19:49)
[2020-09-13] MEDS: ALLOPURINOL 100 MG TABLET. PO SCH ×2 (07:13→09:00)
[2020-09-13] MEDS: amLODIPine BESYLATE 5 MG TABLET PO SCH ×2 (07:13→09:00)
[2020-09-13] MEDS: LITHIUM CARBONATE 300 MG TABLET PO SCH ×3 (07:13→19:47)
[2020-09-13] MEDS: PRIMIDONE 50 MG TABLET PO SCH ×3 (07:13→19:48)
[2020-09-13] MEDS: NICOTINE 14MG PATCH. TD SCH ×2 (07:14→09:00)
--- NOTE | 2020-09-13 07:46 | PDOC ---
Exam Note: Osito Note: This note is a late entry for 09/11/2020 covers elements not covered in my initial note. Subjective: The patient was seen face to face in the evening of 09/11/2020 with Sterling HARO. Discussed with nursing staff, reviewed the chart. She slept 3-1/2 hours previous night. The patient has been sexually inappropriate, urinating on the floor, singing previous night, somewhat grandiose but less so during the day on 09/11. He has been wandering. Risperdal has been changed to 2 mg h.s. He has had some change in his gait and we will monitor this carefully. He remains hyperverbal, delusional about his ex- being here on the unit and cheating all the time. Valproic acid level is 18. Review of Systems: No CV, , pulmonary, eye, ENT system symptoms on review. Mental Status Exam: The patient is alert and oriented. Speech has some latency, coherent. He does have slight festinating gait. We will monitor this. Abstraction is fair. Computation is impaired. Language function intact. Attention span is short. He is somewhat distractible. No suicidal or homicidal ideation. Laboratory Data: Reviewed. Impression: Bipolar disorder mixed with psychotic features. Anxiety disorder unspecified. Impulse control disorder unspecified. Plan: We have increased the Risperdal. We will gradually increase the Depakote to reach therapeutic level. We will increase to 1 g p.o. h.s. from current dosage 500 mg p.o. h.s. Check CBC, CMP, valproic acid level, ammonia level in 3 days. Adjust further as clinically indicated. Assessment: Vital Signs/I&O: Vital Signs Date Time Temp Pulse Resp B/P (MAP) Pulse Ox O2 Delivery O2 Flow Rate FiO2 09/13/20 04:26 98.1 74 18 96/53 (67) 91 Room Air I & O 09/12/20 09/12/20 09/13/20 15:00 23:00 07:00 Intake Total 600 ml 600 ml Balance 600 ml 600 ml Labs: Laboratory Tests Test 09/12/20 18:40 Ammonia < 10 mcmol/L (11-34) L Current Medications: Meds: Current Medications Medications (Trade) Dose Ordered Sig/Mackenzie Route PRN Reason Start Time Stop Time Status Last Admin Dose Admin Divalproex Sodium (Depakote Er) 1,000 mg QHS PO 09/12/20 21:00 09/12/20 20:19 I have reviewed the current psychotropics carefully including drug interactions. Risk benefit ratio favors no change other than as noted in my dictated progress note. 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
--- NOTE | 2020-09-13 08:06 | PDOC ---
Exam Note: Osito Note: This note is a late entry for 09/12/2020 covers elements not covered in my initial note. Subjective: The patient was seen face to face in the evening of 09/12/2020 with Jess HARO. Discussed with nursing staff, reviewed the chart. She slept 4-1/4 hours previous night. Valproic acid level is 24. He remains somewhat manic, grandiose. We will increase the Depakote ER from 500 mg h.s. to 1000 mg h.s. Check CBC, CMP, valproic acid level and ammonia level in 3 days. The patient was agitated in the morning, somewhat paranoid, manic. Received Zyprexa p.r.n. He is ambulating on his own, slight unsteadiness of gait. Review of Systems: No CV, , pulmonary, eye, ENT system symptoms on review. Mental Status Exam: The patient is oriented to himself and situation. Speech has moderate latency, coherent. Abstraction is fair. Computation is impaired. Language function intact. Attention span is short. Mood and affect still somewhat labile, anxious at times, grandiose but better than before. Laboratory Data: Reviewed. Impression: Bipolar disorder manic with psychotic features. Anxiety disorder unspecified. Impulse control disorder unspecified. Plan: Continue current psychotropics. Increase the Depakote. Follow labs level. Make further adjustments as clinically indicated. Assessment: Vital Signs/I&O: Vital Signs Date Time Temp Pulse Resp B/P (MAP) Pulse Ox O2 Delivery O2 Flow Rate FiO2 09/13/20 04:26 98.1 74 18 96/53 (67) 91 Room Air I & O 09/12/20 09/12/20 09/13/20 15:00 23:00 07:00 Intake Total 600 ml 600 ml Balance 600 ml 600 ml Labs: Laboratory Tests Test 09/12/20 18:40 Ammonia < 10 mcmol/L (11-34) L Current Medications: Meds: Current Medications Medications (Trade) Dose Ordered Sig/Mackenzie Route PRN Reason Start Time Stop Time Status Last Admin Dose Admin Divalproex Sodium (Depakote Er) 1,000 mg QHS PO 09/12/20 21:00 09/12/20 20:19 I have reviewed the current psychotropics carefully including drug interactions. Risk benefit ratio favors no change other than as noted in my dictated progress note. 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
--- NOTE | 2020-09-13 13:08 | NUR ---
Patient alert and walking in hallway. Went back to room for assessment. Patient is calm and cooperative and takes medications fine. Patient has no complaints at this time. No concerns at this time.
--- NOTE | 2020-09-13 14:49 | NUR ---
JUAN FRANCISCO has spent time with Johnny each day this week. He continues to report that his ex- Therese is on the unit. JUAN FRANCISCO reminds Johnny that his ex- lives in [facility] and cares for their paralyzed son. Johnny continues to speak of staff being his girlfriend and asks staff for hugs and tells this worker that this worker is his favorite. Reminders provided to Johnny about the need to be professional. Observed Johnny previously this afternoon with verbal agitation directed towards a [employer]. Socorro, POA/daughter, phoned on 09/12/20 and was provided an update by this worker. Socorro will be involved in team meeting via phone on 09/17/20.
[2020-09-13 16:08] VITALS: BP 145/72
[2020-09-13] MEDS: GABAPENTIN 300 MG CAPSULE. PO SCH (19:48)
[2020-09-13] MEDS: DIVALPROEX ER 500 MG TAB.ER.24H PO SCH (19:49)
[2020-09-13] MEDS: risperiDONE 2 MG TABLET. PO SCH (19:49)
[2020-09-13] MEDS: traZODone 50 MG TABLET. PO PRN (19:49)
[2020-09-13] MEDS: ATORVASTATIN CALCIUM 20 MG TABLET PO SCH (19:50)
--- NOTE | 2020-09-13 20:49 | PDOC ---
Exam Note: Osito Note: Please also refer to the separate dictated note~for this date of service dictated separately.~Patient seen individually. Discussed the patient with Nursing staff reviewed the chart.~Reviewed interim history and current functioning. Reviewed vital signs,~Labs/ Radiology~and current medications noted below. Continue current treatment with the changes noted in the dictated addendum note Assessment: Vital Signs/I&O: Vital Signs Date Time Temp Pulse Resp B/P (MAP) Pulse Ox O2 Delivery O2 Flow Rate FiO2 09/13/20 16:08 98.6 73 16 145/72 (96) 99 09/13/20 04:26 Room Air I & O 09/12/20 09/12/20 09/13/20 15:00 23:00 07:00 Intake Total 600 ml 600 ml Balance 600 ml 600 ml Current Medications: Meds: Current Medications Medications (Trade) Dose Ordered Sig/Mackenzie Route PRN Reason Start Time Stop Time Status Last Admin Dose Admin Divalproex Sodium (Depakote Er) 1,000 mg QHS PO 09/12/20 21:00 09/13/20 19:49 I have reviewed the current psychotropics carefully including drug interactions. Risk benefit ratio favors no change other than as noted in my dictated progress note. 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
--- NOTE | 2020-09-14 02:25 | NUR ---
Nursing Note the patient was disorganized and delusional this shift. The patient claimed several times throughout the shift that he can see god all the time. the patient pointed down the frances and stated "see there he is." the patient was compliant with cares and medications. the patient took his medication whole. The patient is currently sleeping in his room.
[2020-09-14 05:14] VITALS: BP 151/69
[2020-09-14] MEDS: ALLOPURINOL 100 MG TABLET. PO SCH (07:50)
[2020-09-14] MEDS: NICOTINE 14MG PATCH. TD SCH (07:50)
[2020-09-14] MEDS: MEMANTINE 10 MG TABLET. PO SCH ×2 (07:51→20:12)
[2020-09-14] MEDS: LITHIUM CARBONATE 300 MG TABLET PO SCH ×2 (07:51→20:12)
[2020-09-14] MEDS: amLODIPine BESYLATE 5 MG TABLET PO SCH (07:51)
[2020-09-14] MEDS: PRIMIDONE 50 MG TABLET PO SCH ×2 (07:51→20:11)
[2020-09-14 15:00] VITALS: BP 107/56
--- NOTE | 2020-09-14 15:18 | NUR ---
Pt has been up in halls. Wandering, restless. Asking for lotion and denture cream. Has not voiced any sexual comments thus far.
[2020-09-14] MEDS: GABAPENTIN 300 MG CAPSULE. PO SCH (20:11)
[2020-09-14] MEDS: risperiDONE 2 MG TABLET. PO SCH (20:11)
[2020-09-14] MEDS: DIVALPROEX ER 500 MG TAB.ER.24H PO SCH (20:12)
[2020-09-14] MEDS: traZODone 50 MG TABLET. PO PRN (20:12)
[2020-09-14] MEDS: ATORVASTATIN CALCIUM 20 MG TABLET PO SCH (20:12)
--- NOTE | 2020-09-14 20:59 | PDOC ---
Exam Note: Osito Note: Please also refer to the separate dictated note~for this date of service dictated separately.~Patient seen individually. Discussed the patient with Nursing staff reviewed the chart.~Reviewed interim history and current functioning. Reviewed vital signs,~Labs/ Radiology~and current medications noted below. Continue current treatment with the changes noted in the dictated addendum note Assessment: Vital Signs/I&O: Vital Signs Date Time Temp Pulse Resp B/P (MAP) Pulse Ox O2 Delivery O2 Flow Rate FiO2 09/14/20 15:00 98.1 92 16 107/56 (73) 94 Room Air I & O 09/13/20 09/13/20 09/14/20 15:00 23:00 07:00 Intake Total 710 ml Balance 710 ml Current Medications: I have reviewed the current psychotropics carefully including drug interactions. Risk benefit ratio favors no change other than as noted in my dictated progress note. 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
--- NOTE | 2020-09-15 02:24 | NUR ---
Nursing Note The patient has been restless and delusional this shift. The patient believes he is on a mission from god. The patient took his medication whole. At the patient repeatedly attempted to exit bed without assistance stating "I am on a mission from god." The patient is currently sitting in the quiet frances singing to Bennie.
[2020-09-15 06:27] VITALS: BP 134/70
--- NOTE | 2020-09-15 06:55 | PDOC ---
Exam Note: Osito Note: This note is a late entry for 09/13/2020 covers elements not covered in my initial note. Subjective: The patient was seen face to face in the evening of 09/13/2020 with Jess HARO. Discussed with nursing staff, reviewed the chart. He slept 6-1/2 hours previous night. Overall the patient is less manic, grandiose, less disruptive. Review of Systems: Positive for pedal edema. No CV, , pulmonary, eye, ENT system symptoms on review. Mental Status Exam: The patient is reasonably oriented. Speech is less pressured. Abstraction is fair. Computation is impaired, distractible, less manic. Language function intact. Attention span is short. Mood and affect less manic, grandiose. No suicidal or homicidal ideation. Laboratory Data: Reviewed. Impression: Bipolar disorder manic with psychotic features. Anxiety disorder unspecified. Impulse control disorder unspecified. Plan: Continue psychotropics from initial note. Depakote has been increased. Labs level to be obtained on 09/15. Adjust further as clinically indicated. Maintain lithium at current dosage. Assessment: Vital Signs/I&O: Vital Signs Date Time Temp Pulse Resp B/P (MAP) Pulse Ox O2 Delivery O2 Flow Rate FiO2 09/15/20 06:27 97.7 79 17 134/70 (91) 96 Room Air I & O0 09/14/20 09/14/20 09/15/20 15:00 23:00 07:00 Intake Total 600 ml 240 ml Balance 600 ml 240 ml Current Medications: I have reviewed the current psychotropics carefully including drug interactions. Risk benefit ratio favors no change other than as noted in my dictated progress note. 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
--- NOTE | 2020-09-15 07:17 | PDOC ---
Exam Note: Osito Note: This note is a late entry for 09/14/2020 covers elements not covered in my initial note. Subjective: The patient was seen on telehealth rounds in the evening of 09/14/2020 with Pam HARO. Discussed with nursing staff, reviewed the chart. He slept 5-1/4 hours previous night. The patients hypersexual, verbalizations are much improved. He is less manic, grandiose, less threatening, somewhat obsessive about his dentures and using the lotion. Review of Systems: No CV, , pulmonary, eye system symptoms on review. At times he seems a little more confused evening of 09/14 as I met with him on telehealth rounds. Mental Status Exam: The patient is oriented to himself and situation. He seemed a little more confused, forgetful. Speech coherent. Abstraction is fair. Computation is impaired. Language function intact. Attention span is short. Mood and affect less manic. No suicidal or homicidal ideation. Laboratory Data: Reviewed. Impression: Bipolar disorder manic with psychotic features. Anxiety disorder unspecified. Impulse control disorder unspecified. Plan: Continue current psychotropics. We will adjust the Depakote to reach therapeutic level. Assessment: Vital Signs/I&O: Vital Signs Date Time Temp Pulse Resp B/P (MAP) Pulse Ox O2 Delivery O2 Flow Rate FiO2 09/15/20 06:27 97.7 79 17 134/70 (91) 96 Room Air I & O 09/14/20 09/14/20 09/15/20 14:59 22:59 06:59 Intake Total 600 ml 240 ml Balance 600 ml 240 ml Current Medications: I have reviewed the current psychotropics carefully including drug interactions. Risk benefit ratio favors no change other than as noted in my dictated progress note. 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
[2020-09-15] MEDS: MEMANTINE 10 MG TABLET. PO SCH ×2 (08:09→20:34)
[2020-09-15] MEDS: LITHIUM CARBONATE 300 MG TABLET PO SCH ×2 (08:09→20:31)
[2020-09-15] MEDS: NICOTINE 14MG PATCH. TD SCH (08:09)
[2020-09-15] MEDS: PRIMIDONE 50 MG TABLET PO SCH ×2 (08:10→20:33)
[2020-09-15] MEDS: ALLOPURINOL 100 MG TABLET. PO SCH (08:10)
[2020-09-15] MEDS: amLODIPine BESYLATE 5 MG TABLET PO SCH (08:10)
[2020-09-15 12:04] LABS: HEMATOCRIT 36.4 % (39.0-53.0); HEMOGLOBIN 11.6 g/dL (13.0-17.5); RED BLOOD COUNT 3.74 x10^6/uL (4.30-5.70); WHITE BLOOD COUNT 10.6 x10^3/uL (4.0-11.0)
[2020-09-15 12:21] LABS: ALBUMIN 3.3 g/dL (3.4-5.0); ALBUMIN/GLOBULIN RATIO 0.8 (1.0-1.7); ALK PHOS 92 U/L (46-116); ALT (SGPT) 27 U/L (16-63); ANION GAP 4 (6-14); AST (SGOT) 25 U/L (15-37); BLOOD UREA NITROGEN 28 mg/dL (8-26); BUN/CREATININE RATIO 20 (6-20); CALCIUM 8.8 mg/dL (8.5-10.1); CARBON DIOXIDE 29 mmol/L (21-32); CHLORIDE 104 mmol/L (98-107); CREATININE 1.4 mg/dL (0.7-1.3); GFR 49.1; GLUCOSE 128 mg/dL (70-99); POTASSIUM 4.7 mmol/L (3.5-5.1); SODIUM 137 mmol/L (136-145); TOTAL BILIRUBIN 0.2 mg/dL (0.2-1.0); TOTAL PROTEIN 7.4 g/dL (6.4-8.2)
[2020-09-15 12:27] LABS: VAL ACID 38 mcg/mL (50-100)
[2020-09-15 12:56] LABS: BILIRUBIN,URINE NEG (NEG); CLARITY,URINE CLEAR; COLOR,URINE YELLOW; GLUCOSE,URINE NEG (NEG)
[2020-09-15 12:57] LABS: BACTERIA,URINE 0 /HPF (0-FEW); NITRITE,URINE NEG (NEG); RBC,URINE OCC /HPF (0-2); SQUAMOUS EPITHELIAL CELL,UR FEW /LPF; UROBILINOGEN,URINE 0.2 mg/dL (0.2 mg/dL); WBC,URINE OCC /HPF (0-4)
[2020-09-15 15:52] VITALS: BP 126/70
--- NOTE | 2020-09-15 17:55 | NUR ---
Pt up adl in halls. Constantly reminded to keep mask above nose. Pt has asked for lotion, and denture cream twice, Spoke with dtr on phone x2. Dtr asked that for now, pt only call once a day as he is argumentative at times and delusional. Pt very irritable during Dr rounds as he wants to go home so he can get some shoes and a hair cut. Says dr told him he could go home days ago. New orders received.
[2020-09-15] MEDS: ATORVASTATIN CALCIUM 20 MG TABLET PO SCH (20:31)
[2020-09-15] MEDS: risperiDONE 2 MG TABLET. PO SCH (20:31)
[2020-09-15] MEDS: GABAPENTIN 300 MG CAPSULE. PO SCH (20:33)
[2020-09-15] MEDS: traZODone 50 MG TABLET. PO PRN (20:33)
[2020-09-15] MEDS: DIVALPROEX ER 500 MG TAB.ER.24H PO SCH (20:34)
[2020-09-15] MEDS: MIRTAZAPINE 7.5 MG TABLET. PO SCH (20:35)
--- NOTE | 2020-09-15 21:01 | PDOC ---
Exam Note: Osito Note: Please also refer to the separate dictated note~for this date of service dictated separately.~Patient seen individually. Discussed the patient with Nursing staff reviewed the chart.~Reviewed interim history and current functioning. Reviewed vital signs,~Labs/ Radiology~and current medications noted below. Continue current treatment with the changes noted in the dictated addendum note Assessment: Vital Signs/I&O: Vital Signs Date Time Temp Pulse Resp B/P (MAP) Pulse Ox O2 Delivery O2 Flow Rate FiO2 09/15/20 15:52 98.0 75 20 126/70 (88) 98 09/15/20 06:27 Room Air I & O 09/14/20 09/14/20 09/15/20 15:00 23:00 07:00 Intake Total 600 ml 240 ml Balance 600 ml 240 ml Labs: Laboratory Tests Test 09/15/20 11:00 09/15/20 11:05 09/15/20 11:10 Urine Collection Type Clean catch Urine Color Yellow Urine Clarity Clear Urine pH 7.0 Urine Specific [place] 1.015 Urine Protein Neg (NEG-TRACE) Urine Glucose (UA) Neg mg/dL (NEG) Urine Ketones (Stick) Trace mg/dL (NEG) Urine Blood Neg (NEG) Urine Nitrite Neg (NEG) Urine Bilirubin Neg (NEG) Urine Urobilinogen Dipstick 0.2 mg/dL (0.2 mg/dL) Urine Leukocyte Esterase Neg (NEG) Urine RBC Occ /HPF (0-2) Urine WBC Occ /HPF (0-4) Urine Squamous Epithelial Cells Few /LPF Urine Bacteria 0 /HPF (0-FEW) White Blood Count 10.6 x10^3/uL (4.0-11.0) Red Blood Count 3.74 x10^6/uL (4.30-5.70) L Hemoglobin 11.6 g/dL (13.0-17.5) L Hematocrit 36.4 % (39.0-53.0) L Mean Corpuscular Volume 97 fL (79-100) Mean Corpuscular Hemoglobin 31 pg (25-35) Mean Corpuscular Hemoglobin Concent 32 g/dL (31-37) Red Cell Distribution Width 16.0 % (11.5-14.5) H Platelet Count 242 x10^3/uL (140-400) Sodium Level 137 mmol/L (136-145) Potassium Level 4.7 mmol/L (3.5-5.1) Chloride Level 104 mmol/L (98-107) Carbon Dioxide Level 29 mmol/L (21-32) Anion Gap 4 (6-14) L Blood Urea Nitrogen 28 mg/dL (8-26) H Creatinine 1.4 mg/dL (0.7-1.3) H Estimated GFR (Cockcroft-Gault) 49.1 BUN/Creatinine Ratio 20 (6-20) Glucose Level 128 mg/dL (70-99) H Calcium Level 8.8 mg/dL (8.5-10.1) Total Bilirubin 0.2 mg/dL (0.2-1.0) Aspartate Amino Transferase (AST) 25 U/L (15-37) Alanine Aminotransferase (ALT) 27 U/L (16-63) Alkaline Phosphatase 92 U/L (46-116) Total Protein 7.4 g/dL (6.4-8.2) Albumin 3.3 g/dL (3.4-5.0) L Albumin/Globulin Ratio 0.8 (1.0-1.7) L Valproic Acid Level 38 mcg/mL (50-100) L Valproic Acid Last Dose Date 09/14/20 Valproic Acid Last Dose Time 2100 Current Medications: Meds: Current Medications Medications (Trade) Dose Ordered Sig/Mackenzie Route PRN Reason Start Time Stop Time Status Last Admin Dose Admin Divalproex Sodium (Depakote Er) 1,500 mg QHS PO 09/15/20 21:00 09/15/20 20:34 Mirtazapine (Remeron) 7.5 mg QHS PO 09/15/20 21:00 09/15/20 20:35 I have reviewed the current psychotropics carefully including drug interactions. Risk benefit ratio favors no change other than as noted in my dictated progress note. 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
--- NOTE | 2020-09-15 23:48 | NUR ---
Pt has been calm this evening. Compliant with whole medications. Pt did walk the unit at start of the shift but quickly went to bed. No agitation or inappropriateness.
[2020-09-16 05:44] VITALS: BP 147/65
--- NOTE | 2020-09-16 06:13 | NUR ---
Pt has been restless throughout the night. Pt up/down repeatedly setting off his bed alarm even though he appeared very tired. Pt taken to [facility] where he dozed on and off during the night. Pt placed in the quiet room to sleep on the mattress. Pt continued to be restless taking off his pants and brief. Pt then taken back to the [facility] where he wandered, yelled out, sang and slept at times.
[2020-09-16] MEDS: MEMANTINE 10 MG TABLET. PO SCH ×2 (07:57→20:14)
[2020-09-16] MEDS: NICOTINE 14MG PATCH. TD SCH (07:57)
[2020-09-16] MEDS: LITHIUM CARBONATE 300 MG TABLET PO SCH (07:57)
[2020-09-16] MEDS: PRIMIDONE 50 MG TABLET PO SCH ×2 (07:57→20:15)
[2020-09-16] MEDS: ALLOPURINOL 100 MG TABLET. PO SCH (07:57)
[2020-09-16] MEDS: amLODIPine BESYLATE 5 MG TABLET PO SCH (07:58)
--- NOTE | 2020-09-16 12:10 | NUR ---
Pt cussing about "the drs lying" States he was going to give this place money but now he wasn't going to give one kwaku. Gigi given.
--- NOTE | 2020-09-16 16:30 | NUR ---
Dr walter informed pt has significant bilateral foot pain and is currently on Gabapentin. Pt has hx of neuralgia. Order to increased Gabapentin to BID.
--- NOTE | 2020-09-16 17:47 | NUR ---
Pt has been calmer most of afternoon until now. Cussing at staff, being intrusive and throwing his food off tray. Pt moved to [place]. Is now sing different songs and wandering up and down frances.
[2020-09-16 19:35] VITALS: BP 113/67
[2020-09-16] MEDS: ATORVASTATIN CALCIUM 20 MG TABLET PO SCH (20:14)
[2020-09-16] MEDS: MIRTAZAPINE 7.5 MG TABLET. PO SCH (20:14)
[2020-09-16] MEDS: risperiDONE 2 MG TABLET. PO SCH (20:15)
[2020-09-16] MEDS: GABAPENTIN 300 MG CAPSULE. PO SCH (20:15)
[2020-09-16] MEDS: DIVALPROEX ER 500 MG TAB.ER.24H PO SCH (20:16)
[2020-09-16] MEDS: traZODone 50 MG TABLET. PO PRN (20:18)
--- NOTE | 2020-09-16 20:37 | PDOC ---
Exam Note: Osito Note: Please also refer to the separate dictated note~for this date of service dictated separately.~Patient seen individually. Discussed the patient with Nursing staff reviewed the chart.~Reviewed interim history and current functioning. Reviewed vital signs,~Labs/ Radiology~and current medications noted below. Continue current treatment with the changes noted in the dictated addendum note Assessment: Vital Signs/I&O: Vital Signs Date Time Temp Pulse Resp B/P (MAP) Pulse Ox O2 Delivery O2 Flow Rate FiO2 09/16/20 19:35 97.9 66 22 113/67 (82) 97 09/15/20 06:27 Room Air I & O 09/15/20 09/15/20 09/16/20 15:00 23:00 07:00 Intake Total 960 ml 480 ml Balance 960 ml 480 ml Labs: Laboratory Tests Test 09/16/20 10:15 [place] Level 1.5 mmol/L (0.6-1.2) H [place] Last Dose Date 09/15/20 [place] Last Dose Time 2100 Current Medications: Meds: Current Medications Medications (Trade) Dose Ordered Sig/Mackenzie Route PRN Reason Start Time Stop Time Status Last Admin Dose Admin Divalproex Sodium (Depakote Er) 1,500 mg QHS PO 09/15/20 21:00 09/16/20 20:16 Mirtazapine (Remeron) 7.5 mg QHS PO 09/15/20 21:00 09/16/20 20:14 Gabapentin (Neurontin) 300 mg BID PO 09/16/20 21:00 09/16/20 20:15 I have reviewed the current psychotropics carefully including drug interactions. Risk benefit ratio favors no change other than as noted in my dictated progress note. 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
--- NOTE | 2020-09-16 22:58 | NUR ---
Pt located in [facility] all night. Pt very labile; sitting calmly one minute and then yelling out and singing anglican hymns the next. Pt compliant with HS medications. Pt apparently became upset because he wasn't taken to bed as quickly as he wanted. Pt threw his dentures. Pt then tossed his water cup that was full of water over the window into the nurses station, splashing all over the window, counter and RN. Pt then started yelling and flipping off RN in nurses station. Pt called staff a "pansy ass" and told them to "fuck off." Pt informed that he would not be leaving the [facility] until he could calm himself down. Pt eventually fell asleep in the chair and then was taken to the quiet room where he has been sleeping. Will continue to monitor.
[2020-09-17 05:54] VITALS: BP 160/70
--- NOTE | 2020-09-17 07:27 | PDOC ---
Exam Note: Osito Note: This note is a late entry for 09/15/2020 covers elements not covered in my initial note. Subjective: The patient was seen on telehealth rounds in the evening of 09/15/2020 with Pam HARO. Discussed with nursing staff, reviewed the chart. He slept 4-1/4 hours previous night. The patient has been more obsessive. He has had frequent urination, repeat UA was negative. Valproic acid level is 38. He remains delusional, suspicious, making rather bizarre statements to his daughter that he was caring for a family member, somewhat more disorganized Review of Systems: Positive for tiredness. No CV, , pulmonary, eye system symptoms on review. Mental Status Exam: The patient is oriented to himself and at times situation. Speech coherent, has some latency. He appears tired. Abstraction is fair. Computation is impaired. Language function intact. Attention span is short. Mood and affect remains somewhat labile. Laboratory Data: Reviewed. Impression: Bipolar disorder manic with psychotic features. Anxiety disorder unspecified. Impulse control disorder unspecified. Plan: Continue current psychotropics. Valproic acid level is 38 on Depakote ER 1000 mg h.s. Increase the Depakote ER to 1500 h.s. Check CBC, CMP, valproic acid level, ammonia level in 3 days. Add Remeron 7.5 mg p.o. h.s. for insomnia since he slept just 4-1/4 hours previous night. Check lithium level on 09/16. Assessment: Vital Signs/I&O: Vital Signs Date Time Temp Pulse Resp B/P (MAP) Pulse Ox O2 Delivery O2 Flow Rate FiO2 09/17/20 05:54 97.9 75 18 160/70 (100) 95 Room Air I & O 09/16/20 09/16/20 09/17/20 15:00 23:00 07:00 Intake Total 24 ml 0 ml Balance 24 ml 0 ml Labs: Laboratory Tests Test 09/16/20 10:15 [place] Level 1.5 mmol/L (0.6-1.2) H [place] Last Dose Date 09/15/20 [place] Last Dose Time 2099 Current Medications: Meds: Current Medications Medications (Trade) Dose Ordered Sig/Mackenzie Route PRN Reason Start Time Stop Time Status Last Admin Dose Admin Gabapentin (Neurontin) 300 mg BID PO 09/16/20 21:00 09/16/20 20:15 I have reviewed the current psychotropics carefully including drug interactions. Risk benefit ratio favors no change other than as noted in my dictated progress note. 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
--- NOTE | 2020-09-17 07:49 | PDOC ---
Exam Note: Osito Note: This note is a late entry for 09/16/2020 covers elements not covered in my initial note. Subjective: The patient was seen on telehealth rounds in the evening of 09/16/2020 with Pam HARO. Discussed with nursing staff, reviewed the chart. He slept 4-1/4 hours previous night. Previous night he was quite restless, yelling with cares, had to be in the [place] hallway to reduce stimulation, disrobing, masturbating on himself. This morning lithium level is 1.5. We will stop the lithium. Check another level in 2 days and then reinstate lithium at a lower dosage. He has been cursing, talking about people lying to him, paranoid, labile in his mood. Review of Systems: No CV, , pulmonary, eye system symptoms on review. Mental Status Exam: The patient is oriented to himself. Speech is coherent. He was getting quite upset, volatile during the individual visit. Abstraction is fair. Computation is impaired. Language function intact. Attention span is short. Mood and affect remains somewhat labile. No suicidal or homicidal ideation. Laboratory Data: Reviewed. Impression: Bipolar disorder manic with psychotic features. Anxiety disorder unspecified. Impulse control disorder unspecified. Plan: Continue current psychotropics. In addition to the above, we will continue rest of the psychotropics. Depakote is being adjusted to reach therapeutic level. Assessment: Vital Signs/I&O: Vital Signs Date Time Temp Pulse Resp B/P (MAP) Pulse Ox O2 Delivery O2 Flow Rate FiO2 09/17/20 05:54 97.9 75 18 160/70 (100) 95 Room Air I & O 09/16/20 09/16/20 09/17/20 15:00 23:00 07:00 Intake Total 224 ml 0 ml Balance 224 ml 0 ml Labs: Laboratory Tests Test 09/16/20 10:15 [place] Level 1.5 mmol/L (0.6-1.2) H [place] Last Dose Date 09/15/20 [place] Last Dose Time 2099 Current Medications: Meds: Current Medications Medications (Trade) Dose Ordered Sig/Mackenzie Route PRN Reason Start Time Stop Time Status Last Admin Dose Admin Gabapentin (Neurontin) 300 mg BID PO 09/16/20 21:00 09/16/20 20:15 I have reviewed the current psychotropics carefully including drug interactions. Risk benefit ratio favors no change other than as noted in my dictated progress note. Diagnosis: Problems: (1) Impulse control disorder, unspecified (2) Anxiety disorder, unspecified (3) Dementia, vascular, with depression (4) Dementia, vascular, with delusions (5) Bipolar disorder, current episode manic severe with psychotic features (6) Dementia in Alzheimer's disease with depression (7) Dementia in Alzheimer's disease with delusions (8) Major neurocognitive disorder (9) Dementia in Alzheimer's disease with early onset with behavioral disturbance DOROTHY CHURCHILL MD Sep 17, 2020 07:48
[2020-09-17] MEDS: ALLOPURINOL 100 MG TABLET. PO SCH (08:34)
[2020-09-17] MEDS: NICOTINE 14MG PATCH. TD SCH (08:34)
[2020-09-17] MEDS: amLODIPine BESYLATE 5 MG TABLET PO SCH (08:34)
[2020-09-17] MEDS: PRIMIDONE 50 MG TABLET PO SCH ×2 (08:35→20:19)
[2020-09-17] MEDS: GABAPENTIN 300 MG CAPSULE. PO SCH ×2 (08:35→20:20)
[2020-09-17] MEDS: MEMANTINE 10 MG TABLET. PO SCH ×2 (08:35→20:19)
--- NOTE | 2020-09-17 10:09 | NUR ---
Patient is in room sitting in chair at time of assessment. Patient had breakfast in [facility] as he was in quiet room all night. He was throwing his cup of water at the nurses and was very agitated and restless last night. Today he seems labile with bouts of crying. He is oriented but still confused. He is cooperative and takes his medications just fine. I helped patient to clean his dentures and use glue to afix them to see if they stay in better. Patient has no complaints of pain or any additional concerns at this time.
--- NOTE | 2020-09-17 12:49 | TX PLAN ---
Interdisciplinary Tx Plan Admission Information Sep 07, 2020 at 23:37 Legal Status (on Admission): Voluntary, DPOA DPOA/Guardian Name: Socorro Kerns Contact Other Contact Name: Izabela- Other Contact Verified Code Status: Full Code Allergies: Coded Allergies: No Known Drug Allergies (Unverified , 09/07/20) Diagnoses Primary Diagnosis: Bipolar mixed with psychotic features Reasons for Admission: Agitated, Anxiety/Panic, Combative, Poor impulse control Problem in Patient's Words: Per Johnny, "They brought mehere, I didn't have no choice. I wouldn't have come here if I knew it was so bad." When informed Johnny of the beviors reported by [facility], Johnny denied the behaviors and stated that a staff member took his hand and placed it in her private area. Additional Admission Comments: Per intake, non complinat with medications, verbally and sexually aggresive towards staff, tried to hit staff, threatens to punch staf, agitated, and anxious that AAA will burst. Problems Active Problems: Sleep disturbance Manic Swearing Sexualized comments and behaviors Agitation Mood Lability Inactive Problems: Medication compliant Pt Strengths/Limitations Ability for [place]: Fair Cognitive Functioning/Ability: Fair Communication Skills/Ability: Fair Financial Resources: Fair Insight/Judgement: Poor Intellectual Ability: Fair Physical Health: Fair Social Skills: Fair Stability in Family: Fair Verbal Skills: Fair Discharge Criteria Discharge Criteria: No need for close observ., Adequate arrangements @DC, Improved behavior, Improved mood/thought Preliminary Discharge Plan Preliminary DC Plan: Memory Care Special Precautions Special Precautions: Agitation/Assault Fall Risk: High Initial D/C Plan [facility] Identified Discharge Needs: F/U with out patient psychiatrist, PCP. Consider referal for counseling services. Currently Utilized Resources Currently Utilized Resources/P: PCP and Psychiatric services at [facility] Referrals Community Resources: Counseling if available Identified Problems/Hx/Goals Objectives/Short-Term Goals Short Term Goals: Control abnormal behavior, Dec. Aggression, Dec. Anxiety/Panic, Dec. Hallucination/Delus, Medication Stabilization, Monitor Med Effects, Prevent Deterioration Short Term Goals in Patient's: "Get things unpacked and settled, then I'm going to [facility]." Interventions/Frequency Staff Interventions/Frequency&: Nursing to provde routine safety checks, adl assistance, and medication administration. Psychiatry to see three times per week. SW visits twice weekly. PT/OT as ordered. SW and recreational therapy groups as Johnny will be involved. 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 Social: Johnny has enjoyed golfing, fishing, coaching baseball, and horseback riding. Education: Johnny attened school thru the 4th grade. Later, he obtained a GED. Community Follow-up PCP Psychiatrist Counselor, if available Community Provider/Family Inpu: NA Quintanilla, will be involved in team meeting by phone on 09/17/20. Treatment Plan Explained Patient/Adoption Coordinator had this treatment plan explained to him/her as indicated by the signature below and has been given the opportunity to ask questions and make suggestions: Date: Patient/Adoption Coordinator Signature: Status Update Update WEEKLY UPDATE/NOTE: Johnny is averaging 85% of meal intakes and 4.5 hours of sleep at night. His mood is extremely labile with periods of tearfulness, agitation, verbal aggression, physical aggression, and singing out loud. Johnny has periods of not sleeping well and restlessness. He has been escorted to the quiet frances for de-escalation at times. Johnny is currently manic despite lithium being therapeutic. NA Quintanilla/daughter, participated in team meeting via phone. Tentative d/c date end of next week or early the week after. Johnny will read the newspaper and looks at magazines. He does interact with staff and peers. SW will update nurse Izabela, at the [facility] unit. ALYSIA OTERO Sep 17, 2020 12:49
--- NOTE | 2020-09-17 12:52 | NUR ---
JUAN FRANCISCO left message for Izabela, nurse at [facility], with intent to provide progress report. Awaiting return phone call. Addendum: 09/17/20 at 1256 by ALYSIA CHICAS Izabela returned JUAN FRANCISCO's call and was provided an update. Johnny is not stable for d/c at this time. JUAN FRANCISCO will update Izabela again on 09/24/20.
[2020-09-17 15:07] VITALS: BP 112/63
--- NOTE | 2020-09-17 15:55 | NUR ---
WEEKLY ACTIVITY THERAPY NOTE- GROUPS/ 1:1s SUSPENDED OF 09/06- 1:1s resumed 09/12 Date of Admission: 09/07 Date of AT Assessment: 09/10 Precipitating behaviors that initiated intake and admission: Non compliant with medications, verbally and sexually aggressive toward staff, attempting to hit staff, increased agitation Goal aimed: to increase relaxation Initial Goal: Pt. will participate in at least one individual Activity Therapy Session before discharge. Weekly progress towards goal: exceeded, 12/24 Group participation level: 3 full Weekly highlights: exceeded goal- 3 individual sessions Behaviors observed: often in halls, needs reminders about mask, wants to give staff hugs, called STITCHER FEEDER "baby" often, requests to make phone calls, walks halls with hands in the air- anabaptism Plan: change goal to: Pt. will participate in at least three individual or Activity Therapy sessions per week Beneficial adaptations:
[2020-09-17] MEDS: DIVALPROEX ER 500 MG TAB.ER.24H PO SCH (20:19)
[2020-09-17] MEDS: traZODone 50 MG TABLET. PO PRN (20:19)
[2020-09-17] MEDS: risperiDONE 2 MG TABLET. PO SCH ×2 (20:19→20:21)
[2020-09-17] MEDS: ATORVASTATIN CALCIUM 20 MG TABLET PO SCH (20:20)
[2020-09-17] MEDS: MIRTAZAPINE 7.5 MG TABLET. PO SCH (20:20)
[2020-09-17] MEDS: QUEtiapine 50 MG TABLET. PO SCH (20:21)
--- NOTE | 2020-09-17 21:14 | PDOC ---
Exam Note: Osito Note: Please also refer to the separate dictated note~for this date of service dictated separately.~Patient seen individually. Discussed the patient with Nursing staff reviewed the chart.~Reviewed interim history and current functioning. Reviewed vital signs,~Labs/ Radiology~and current medications noted below. Continue current treatment with the changes noted in the dictated addendum note Assessment: Vital Signs/I&O: Vital Signs Date Time Temp Pulse Resp B/P (MAP) Pulse Ox O2 Delivery O2 Flow Rate FiO2 09/17/20 15:07 97.4 69 17 112/63 (79) 96 09/17/20 05:54 Room Air I & O 09/16/20 09/16/20 09/17/20 15:00 23:00 07:00 Intake Total 224 ml 0 ml Balance 224 ml 0 ml Current Medications: Meds: Current Medications Medications (Trade) Dose Ordered Sig/Mackenzie Route PRN Reason Start Time Stop Time Status Last Admin Dose Admin Quetiapine Fumarate (SEROquel) 50 mg QHS PO 09/17/20 21:00 09/17/20 20:21 I have reviewed the current psychotropics carefully including drug interactions. Risk benefit ratio favors no change other than as noted in my dictated progress note. 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
--- NOTE | 2020-09-17 22:48 | NUR ---
Pt has been wandering the unit this evening, interacting with other patients and being intrusive at times. Compliant with HS medications. Pt appears very tired and barely able to keep his eyes open. Pt went straight to bed after medication administration.
[2020-09-18 05:50] VITALS: BP 113/56
[2020-09-18 06:55] LABS: BASO # 0.1 x10^3/uL (0.0-0.2); BASO % 1 % (0-3); EOS # 0.2 x10^3/uL (0.0-0.7); EOS % 3 % (0-3); HEMATOCRIT 37.3 % (39.0-53.0); HEMOGLOBIN 11.8 g/dL (13.0-17.5); LYMPH # 2.3 x10^3/uL (1.0-4.8); LYMPH % 27 % (24-48); MEAN CORPUSCULAR HEMOGLOBIN 30 pg (25-35); MEAN CORPUSCULAR HGB CONC 32 g/dL (31-37); MEAN CORPUSCULAR VOLUME 96 fL (79-100); MONO # 0.7 x10^3/uL (0.0-1.1); MONO % 9 % (0-9); NEUT # 5.1 x10^3uL (1.8-7.7); NEUT % 61 % (31-73); PLATELET COUNT 215 x10^3/uL (140-400); RED BLOOD COUNT 3.88 x10^6/uL (4.30-5.70); RED CELL DISTRIBUTION WIDTH 15.8 % (11.5-14.5); WHITE BLOOD COUNT 8.4 x10^3/uL (4.0-11.0)
[2020-09-18 07:08] LABS: ALBUMIN 3.1 g/dL (3.4-5.0); ALBUMIN/GLOBULIN RATIO 0.8 (1.0-1.7); ALK PHOS 88 U/L (46-116); ALT (SGPT) 25 U/L (16-63); ANION GAP 6 (6-14); AST (SGOT) 24 U/L (15-37); BLOOD UREA NITROGEN 29 mg/dL (8-26); BUN/CREATININE RATIO 21 (6-20); CALCIUM 8.6 mg/dL (8.5-10.1); CARBON DIOXIDE 30 mmol/L (21-32); CHLORIDE 106 mmol/L (98-107); CREATININE 1.4 mg/dL (0.7-1.3); GFR 49.1; GLUCOSE 81 mg/dL (70-99); POTASSIUM 4.4 mmol/L (3.5-5.1); SODIUM 142 mmol/L (136-145); TOTAL BILIRUBIN 0.3 mg/dL (0.2-1.0); TOTAL PROTEIN 7.1 g/dL (6.4-8.2); VAL ACID 52 mcg/mL (50-100)
--- NOTE | 2020-09-18 07:50 | PDOC ---
Exam Note: Osito Note: This note is a late entry for 09/17/2020 covers elements not covered in my initial note. Subjective: The patient was seen on telehealth rounds in the morning of 09/17/2020 for treatment team meeting with Carolyn Noble and Verónica drug abuse social worker and Jess HARO. Discussed with nursing staff, reviewed the chart. The patients daughter Socorro attended the treatment team meeting as well. The patient has been labile in his mood, teary at times. He slept 4-1/4 hours previous night. Last night he had to be in the [facility] to reduce stimuli. He got agitated, threw water on a nursing aid. Daughter states he did well on Seroquel in the past. [place] has been stopped since level had risen to 1.5 and we will restart it after repeat level on 09/18. He did better in the morning. In the evening once again he was labile. During treatment team meeting we discussed his diagnoses, progress and changes in psychotropics at length with the daughter. Review of Systems: No CV, , pulmonary, eye system symptoms on review. Mental Status Exam: The patient is oriented to himself. He is less anxious, labile generally in the evening as I met with him. Speech is coherent. Abstraction is fair. Computation is impaired. Language function intact. Attention span is short. Mood and affect remains somewhat labile. No suicidal or homicidal ideation. Laboratory Data: Reviewed. Impression: Bipolar disorder manic with psychotic features. Anxiety disorder unspecified. Impulse control disorder unspecified. Plan: Continue current psychotropics. Assessment: Vital Signs/I&O: Vital Signs Date Time Temp Pulse Resp B/P (MAP) Pulse Ox O2 Delivery O2 Flow Rate FiO2 09/18/20 05:50 98.2 60 16 113/56 (75) 94 09/17/20 05:54 Room Air I & O 09/17/20 09/17/20 09/18/20 15:00 23:00 07:00 Intake Total 565 ml 545 ml Balance 565 ml 545 ml Labs: Laboratory Tests Test 09/18/20 06:20 White Blood Count 8.4 x10^3/uL (4.0-11.0) Red Blood Count 3.88 x10^6/uL (4.30-5.70) L Hemoglobin 11.8 g/dL (13.0-17.5) L Hematocrit 37.3 % (39.0-53.0) L Mean Corpuscular Volume 96 fL (79-100) Mean Corpuscular Hemoglobin 30 pg (25-35) Mean Corpuscular Hemoglobin Concent 32 g/dL (31-37) Red Cell Distribution Width 15.8 % (11.5-14.5) H Platelet Count 215 x10^3/uL (140-400) Neutrophils (%) (Auto) 61 % (31-73) Lymphocytes (%) (Auto) 27 % (24-48) Monocytes (%) (Auto) 9 % (0-9) Eosinophils (%) (Auto) 3 % (0-3) Basophils (%) (Auto) 1 % (0-3) Neutrophils # (Auto) 5.1 x10^3uL (1.8-7.7) Lymphocytes # (Auto) 2.3 x10^3/uL (1.0-4.8) Monocytes # (Auto) 0.7 x10^3/uL (0.0-1.1) Eosinophils # (Auto) 0.2 x10^3/uL (0.0-0.7) Basophils # (Auto) 0.1 x10^3/uL (0.0-0.2) Sodium Level 142 mmol/L (136-145) Potassium Level 4.4 mmol/L (3.5-5.1) Chloride Level 106 mmol/L (98-107) Carbon Dioxide Level 30 mmol/L (21-32) Anion Gap 6 (6-14) Blood Urea Nitrogen 29 mg/dL (8-26) H Creatinine 1.4 mg/dL (0.7-1.3) H Estimated GFR (Cockcroft-Gault) 49.1 BUN/Creatinine Ratio 21 (6-20) H Glucose Level 81 mg/dL (70-99) Calcium Level 8.6 mg/dL (8.5-10.1) Total Bilirubin 0.3 mg/dL (0.2-1.0) Aspartate Amino Transferase (AST) 24 U/L (15-37) Alanine Aminotransferase (ALT) 25 U/L (16-63) Alkaline Phosphatase 88 U/L (46-116) Ammonia < 10 mcmol/L (11-34) L Total Protein 7.1 g/dL (6.4-8.2) Albumin 3.1 g/dL (3.4-5.0) L Albumin/Globulin Ratio 0.8 (1.0-1.7) L Valproic Acid Level 52 mcg/mL (50-100) Valproic Acid Last Dose Date 09/17/20 Valproic Acid Last Dose Time 2100 Current Medications: Meds: Current Medications Medications (Trade) Dose Ordered Sig/Mackenzie Route PRN Reason Start Time Stop Time Status Last Admin Dose Admin Quetiapine Fumarate (SEROquel) 50 mg QHS PO 09/17/20 21:00 09/17/20 20:21 I have reviewed the current psychotropics carefully including drug interactions. Risk benefit ratio favors no change other than as noted in my dictated progress note. 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
[2020-09-18] MEDS: NICOTINE 14MG PATCH. TD SCH (09:42)
[2020-09-18] MEDS: ALLOPURINOL 100 MG TABLET. PO SCH (09:42)
[2020-09-18] MEDS: PRIMIDONE 50 MG TABLET PO SCH ×2 (09:43→19:56)
[2020-09-18] MEDS: amLODIPine BESYLATE 5 MG TABLET PO SCH (09:43)
[2020-09-18] MEDS: GABAPENTIN 300 MG CAPSULE. PO SCH ×2 (09:44→19:57)
[2020-09-18] MEDS: MEMANTINE 10 MG TABLET. PO SCH ×2 (09:44→19:57)
--- NOTE | 2020-09-18 13:50 | NUR ---
Around lunch time patient was asking and then demanding to make phone calls. He has been standing at the nurses station cursing and yelling he is disturbing other patients in their rooms and in the hallway near where he was standing. Patient was verbally redirected by OFFENDER JOB RETENTION SPECIALIST and then nurse and he was told there would be NO phone calls if he continued to curse and yell. Patient stopped the behavior. Patient received a phone call from a friend "Rodrick" this morning and was overheard having a disorganized conversation. Night nurse reported that his speech seems a little more garbled than on previous days. Patient has also been singing patriotic and latter day songs in a very loud voice in the hallway. He is compliant with medications, he takes them whole with water.
--- NOTE | 2020-09-18 14:00 | NUR ---
JUAN FRANCISCO Sanches stated she observed patient throwing his dentures down the frances as if "bowling". Dentures taken from patient to provide loss or damage and locked in closet in his room. Front tooth of top denture appeared to be chipped/broken. It is unknown if this is from him bowling with them or was a pre-existing condition.
[2020-09-18 15:43] VITALS: BP 132/68
--- NOTE | 2020-09-18 15:49 | NUR ---
1:1 with Johnny this afternoon to socialize and complete MMSE. Johnny scored 21/30 indicating possible mild cognitive impairment. Johnny appeared tired and eventually decided to rest in bed after being persuaded. His mood continues to be labile as JUAN FRANCISCO observed him to be belligerent by cursing about the physician, angry that he has not been released, tearful, and speaking about an oak tree on a computer during 1:1 visit. Johnny's daughter, Socorro, called JUAN FRANCISCO for an update this afternoon.
--- NOTE | 2020-09-18 16:44 | NUR ---
Patient called a peer "you old toan" by the shower room, this started a verbal altercation with peer. Nurse walked laps with patient in hallway and during conversation patient stated that he was retired from [employer], and that the [employer] is moving to [place]. He also stated that his ex- made her living "on her back". Patient calmer and more pleasant after walking two laps in the hallway. Patient returned to the window to ask to call Rodrick. When nurse told him he had already talked to Rodrick, he went to his room to wait for dinner.
[2020-09-18] MEDS: QUEtiapine 50 MG TABLET. PO SCH (19:57)
[2020-09-18] MEDS: MIRTAZAPINE 7.5 MG TABLET. PO SCH (19:57)
[2020-09-18] MEDS: ATORVASTATIN CALCIUM 20 MG TABLET PO SCH (19:57)
[2020-09-18] MEDS: DIVALPROEX ER 500 MG TAB.ER.24H PO SCH (19:58)
--- NOTE | 2020-09-18 20:55 | PDOC ---
Exam Note: Osito Note: Please also refer to the separate dictated note~for this date of service dictated separately.~Patient seen individually. Discussed the patient with Nursing staff reviewed the chart.~Reviewed interim history and current functioning. Reviewed vital signs,~Labs/ Radiology~and current medications noted below. Continue current treatment with the changes noted in the dictated addendum note Assessment: Vital Signs/I&O: Vital Signs Date Time Temp Pulse Resp B/P (MAP) Pulse Ox O2 Delivery O2 Flow Rate FiO2 09/18/20 15:43 97.4 69 18 132/68 (89) 97 09/17/20 05:54 Room Air I & O 09/17/20 09/17/20 09/18/20 15:00 23:00 07:00 Intake Total 565 ml 545 ml Balance 565 ml 545 ml Labs: Laboratory Tests Test 09/18/20 06:20 White Blood Count 8.4 x10^3/uL (4.0-11.0) Red Blood Count 3.88 x10^6/uL (4.30-5.70) L Hemoglobin 11.8 g/dL (13.0-17.5) L Hematocrit 37.3 % (39.0-53.0) L Mean Corpuscular Volume 96 fL (79-100) Mean Corpuscular Hemoglobin 30 pg (25-35) Mean Corpuscular Hemoglobin Concent 32 g/dL (31-37) Red Cell Distribution Width 15.8 % (11.5-14.5) H Platelet Count 215 x10^3/uL (140-400) Neutrophils (%) (Auto) 61 % (31-73) Lymphocytes (%) (Auto) 27 % (24-48) Monocytes (%) (Auto) 9 % (0-9) Eosinophils (%) (Auto) 3 % (0-3) Basophils (%) (Auto) 1 % (0-3) Neutrophils # (Auto) 5.1 x10^3uL (1.8-7.7) Lymphocytes # (Auto) 2.3 x10^3/uL (1.0-4.8) Monocytes # (Auto) 0.7 x10^3/uL (0.0-1.1) Eosinophils # (Auto) 0.2 x10^3/uL (0.0-0.7) Basophils # (Auto) 0.1 x10^3/uL (0.0-0.2) Sodium Level 142 mmol/L (136-145) Potassium Level 4.4 mmol/L (3.5-5.1) Chloride Level 106 mmol/L (98-107) Carbon Dioxide Level 30 mmol/L (21-32) Anion Gap 6 (6-14) Blood Urea Nitrogen 29 mg/dL (8-26) H Creatinine 1.4 mg/dL (0.7-1.3) H Estimated GFR (Cockcroft-Gault) 49.1 BUN/Creatinine Ratio 21 (6-20) H Glucose Level 81 mg/dL (70-99) Calcium Level 8.6 mg/dL (8.5-10.1) Total Bilirubin 0.3 mg/dL (0.2-1.0) Aspartate Amino Transferase (AST) 24 U/L (15-37) Alanine Aminotransferase (ALT) 25 U/L (16-63) Alkaline Phosphatase 88 U/L (46-116) Ammonia < 10 mcmol/L (11-34) L Total Protein 7.1 g/dL (6.4-8.2) Albumin 3.1 g/dL (3.4-5.0) L Albumin/Globulin Ratio 0.8 (1.0-1.7) L Valproic Acid Level 52 mcg/mL (50-100) Valproic Acid Last Dose Date 09/17/20 Valproic Acid Last Dose Time 2100 [place] Level 1.0 mmol/L (0.6-1.2) [place] Last Dose Date 09/16/20 [place] Last Dose Time 0800 Current Medications: Meds: Current Medications Medications (Trade) Dose Ordered Sig/[place]enzie Route PRN Reason Start Time Stop Time Status Last Admin Dose Admin Quetiapine Fumarate (SEROquel) 50 mg QHS PO 09/17/20 21:00 09/18/20 19:57 I have reviewed the current psychotropics carefully including drug interactions. Risk benefit ratio favors no change other than as noted in my dictated progress note. 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
[2020-09-19] MEDS: traZODone 50 MG TABLET. PO PRN ×2 (01:29→19:51)
--- NOTE | 2020-09-19 03:17 | NUR ---
Nursing Note The patient was calm and compliant this shift. The patient took his medication whole. The patient was disorganized and was unable to keep his train of thought during his assessment. The patient was very restless @[facility] and received a PRN Trazodone. The patient is currently sleeping in the quiet frances.
[2020-09-19 05:57] VITALS: BP 146/76
[2020-09-19 06:28] VITALS: BP 146/76
--- NOTE | 2020-09-19 08:37 | NUR ---
Patient is yelling in hallway and cursed at this nurse because "his clothes are too big and his hearing aides are missing". Patient does not have any hearing aides on his belonging checklist. Patient is intrusive with peers, he is entering their rooms and yelling in the hallways which is causing agitation to his peers. Patient has been verbally redirected by multiple staff members this morning. Addendum: 09/19/20 at 1128 by VEENA CARRASCO RN Patient given PRN zyprexa as ordered for agitation/psychosis with his scheduled morning medications.
[2020-09-19] MEDS: PRIMIDONE 50 MG TABLET PO SCH ×2 (09:27→19:53)
[2020-09-19] MEDS: ALLOPURINOL 100 MG TABLET. PO SCH (09:27)
[2020-09-19] MEDS: NICOTINE 14MG PATCH. TD SCH (09:27)
[2020-09-19] MEDS: MEMANTINE 10 MG TABLET. PO SCH ×2 (09:28→19:53)
[2020-09-19] MEDS: amLODIPine BESYLATE 5 MG TABLET PO SCH (09:28)
[2020-09-19] MEDS: GABAPENTIN 300 MG CAPSULE. PO SCH ×2 (09:30→19:54)
--- NOTE | 2020-09-19 11:00 | NUR ---
Patient had asked nurse to get his dentures this morning. Nurse assisted patient to use adhesive and insert dentures. After breakfast patient was removing dentures and not using them properly and leaving them laying on surfaces in his room. (bed table and window sill). Dentures were removed from his room by staff and placed in the nurses station for safe keeping. Dentures are ill fitting and he takes them in and out frequently. Yesterday he was "bowling" with them and throwing them down the hallway. Nurse will change diet to dysphagia 2 to assist with chewing it without dentures. Patient was upset about not being allowed to make phone calls to his sons, he had been told he can call his daughter after lunch. He continues to come to the nursing station and call nurses liars and yell through window. Nurse once again told patient he could call his daughter after lunch. [facility] record only has a phone number for his daughter and her instructions are that he only be allowed to call her once daily. He then began insisting that he needs to call all 5 of his children (sons Rodrick, Gregory and Ross). This unit does not have phone numbers for his other children in the patient record. Patient angered by this and stomped down the hallway.
--- NOTE | 2020-09-19 11:36 | NUR ---
Patient diet changed to dysphagia 2 as patient can no longer wear his dentures.
[2020-09-19 15:45] VITALS: BP 142/73
--- NOTE | 2020-09-19 18:23 | NUR ---
Patient was sitting on the toilet and he yelled out, stating he had fallen on the floor. Nurse heard patient yell and responded to patient bathroom. Patient was found to be laying on the floor on his right side with his pants down. Patient reports right sided pain, nothing observed upon physical examination. He stated that he did not hit his head. Patient has been observed placing himself on the floor intentionally on previous occasion. Patient is now laying on bed, eyes closed, with his ankles crossed. He does not appear to be in any pain and is sleeping. Dr Martínez lopez.
[2020-09-19] MEDS: ATORVASTATIN CALCIUM 20 MG TABLET PO SCH (19:53)
[2020-09-19] MEDS: QUEtiapine 50 MG TABLET. PO SCH (19:53)
[2020-09-19] MEDS: MIRTAZAPINE 7.5 MG TABLET. PO SCH (19:54)
[2020-09-19] MEDS: DIVALPROEX ER 500 MG TAB.ER.24H PO SCH (19:54)
--- NOTE | 2020-09-19 20:55 | PDOC ---
Exam Note: Osito Note: Please also refer to the separate dictated note~for this date of service dictated separately.~Patient seen individually. Discussed the patient with Nursing staff reviewed the chart.~Reviewed interim history and current functioning. Reviewed vital signs,~Labs/ Radiology~and current medications noted below. Continue current treatment with the changes noted in the dictated addendum note Assessment: Vital Signs/I&O: Vital Signs Date Time Temp Pulse Resp B/P (MAP) Pulse Ox O2 Delivery O2 Flow Rate FiO2 09/19/20 15:45 97.8 71 16 142/73 (96) 98 09/17/20 05:54 Room Air I & O 09/18/20 09/18/20 09/19/20 15:00 23:00 07:00 Intake Total 720 ml 240 ml Balance 720 ml 240 ml Current Medications: I have reviewed the current psychotropics carefully including drug interactions. Risk benefit ratio favors no change other than as noted in my dictated progress note. 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
--- NOTE | 2020-09-20 00:40 | NUR ---
Nursing Note The patient was calm and compliant this shift. The patient took his medication whole and was pleasant during interactions. The patient is currently sleeping in his room.
[2020-09-20] MEDS: traZODone 50 MG TABLET. PO PRN (01:50)
[2020-09-20 05:37] VITALS: BP 150/68
[2020-09-20] MEDS: MEMANTINE 10 MG TABLET. PO SCH ×2 (10:00→20:00)
[2020-09-20] MEDS: amLODIPine BESYLATE 5 MG TABLET PO SCH (10:00)
[2020-09-20] MEDS: GABAPENTIN 300 MG CAPSULE. PO SCH ×2 (10:00→20:00)
[2020-09-20] MEDS: ALLOPURINOL 100 MG TABLET. PO SCH (10:01)
[2020-09-20] MEDS: PRIMIDONE 50 MG TABLET PO SCH ×2 (10:01→20:00)
[2020-09-20] MEDS: NICOTINE 7MG PATCH. TD SCH (10:03)
[2020-09-20 15:36] VITALS: BP 139/69
--- NOTE | 2020-09-20 17:54 | NUR ---
Spoke to Dr Macias and VPA level 26. Increase Depakote to 250mg BID. Order placed and labs in 3 days. Addendum: 09/20/20 at 1756 by ALEJANDRO REICH RN Corrected information. Not VPA level. [place] level was 0.7. [place] to restart 150mg QHS labs in 3 days.
[2020-09-20] MEDS: ATORVASTATIN CALCIUM 20 MG TABLET PO SCH (20:00)
[2020-09-20] MEDS: DIVALPROEX ER 500 MG TAB.ER.24H PO SCH (20:00)
[2020-09-20] MEDS: MIRTAZAPINE 7.5 MG TABLET. PO SCH (20:00)
[2020-09-20] MEDS: QUEtiapine 50 MG TABLET. PO SCH (20:01)
[2020-09-20] MEDS: LITHIUM CARBONATE 300 MG TABLET PO SCH (20:02)
--- NOTE | 2020-09-20 20:47 | PDOC ---
Exam Note: Osito Note: This note is a late entry for 09/18/2020 covers elements not covered in my initial note. Subjective: The patient was seen face to face in the evening of 09/18/2020 with Viri HARO. Discussed with nursing staff, reviewed the chart. The patient slept 6-1/2 hours previous night. He remains confused, walks with his eyes closed. He has been agitated, paranoid. He threw his dentures down the hallway. BUN 29, creatinine 1.4. He appears to be physically somewhat more compromised and part of this might have been the elevated lithium which has since been stopped. Repeat lithium level is 1.0. Valproic acid level is therapeutic at 52. Ammonia is less than 10. Review of Systems: Ambulation impaired. No CV, , pulmonary, eye system symptoms on review. Mental Status Exam: The patient is oriented to himself and situation. Speech is coherent, at times somewhat pressured, angry, irritable, less labile at other times. Attention span is short. No active suicidal or homicidal ideation. Laboratory Data: Reviewed. Impression: Bipolar disorder manic with psychotic features. Anxiety disorder unspecified. Impulse control disorder unspecified. Plan: Keep the patient off lithium. Repeat lithium level on 09/20 and restart at a lower dosage. Continue rest unchanged for now. Assessment: Vital Signs/I&O: Vital Signs Date Time Temp Pulse Resp B/P (MAP) Pulse Ox O2 Delivery O2 Flow Rate FiO2 09/20/20 15:36 98.0 64 20 139/69 (92) 96 09/17/20 05:54 Room Air I & O 09/19/20 09/19/20 09/20/20 15:00 23:00 07:00 Intake Total 600 ml 360 ml Balance 600 ml 360 ml Labs: Laboratory Tests Test 09/20/20 05:45 [place] Level 0.7 mmol/L (0.6-1.2) [place] Last Dose Date 09/16/20 [place] Last Dose Time 2099 Current Medications: Meds: Current Medications Medications (Trade) Dose Ordered Sig/[place] Route PRN Reason Start Time Stop Time Status Last Admin Dose Admin Nicotine (Nicoderm Cq 7mg Patch) 1 patch DAILY TD 09/20/20 09:00 09/20/20 10:03 [place] Carbonate 150 mg HS PO 09/20/20 21:00 09/20/20 20:02 I have reviewed the current psychotropics carefully including drug interactions. Risk benefit ratio favors no change other than as noted in my dictated progress note. 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
--- NOTE | 2020-09-20 21:09 | PDOC ---
Exam Note: Osito Note: This note is a late entry for 09/19/2020 covers elements not covered in my initial note. Subjective: The patient was seen on telehealth rounds in the evening of 09/19/2020 with Viri HARO. Discussed with nursing staff, reviewed the chart. The patient slept 5-1/2 hours previous night. He has been singing, yelling, cursing at times but physically appears a little bit stronger today. Review of Systems: No CV, , pulmonary, eye system symptoms on review. Mental Status Exam: The patient is oriented to himself. He is not physically compromised as the day before, less paranoid, smiling. Speech is coherent. Abstraction is fair. Computation is impaired. Language function intact. At tention span is short. No suicidal or homicidal ideation. Laboratory Data: Reviewed. Impression: Bipolar disorder manic with psychotic features. Anxiety disorder unspecified. Impulse control disorder unspecified. Plan: We will repeat lithium level on 09/20. Restart lithium at lower dosage. Continue rest unchanged for now. Assessment: Vital Signs/I&O: Vital Signs Date Time Temp Pulse Resp B/P (MAP) Pulse Ox O2 Delivery O2 Flow Rate FiO2 09/20/20 15:36 98.0 64 20 139/69 (92) 96 09/17/20 05:54 Room Air I & O 09/19/20 09/19/20 09/20/20 15:00 23:00 07:00 Intake Total 600 ml 360 ml Balance 600 ml 360 ml Labs: Laboratory Tests Test 09/20/20 05:45 [place] Level 0.7 mmol/L (0.6-1.2) [place] Last Dose Date 09/16/20 [place] Last Dose Time 2099 Current Medications: Meds: Current Medications Medications (Trade) Dose Ordered Sig/[place] Route PRN Reason Start Time Stop Time Status Last Admin Dose Admin Nicotine (Nicoderm Cq 7mg Patch) 1 patch DAILY TD 09/20/20 09:00 09/20/20 10:03 [place] Carbonate 150 mg HS PO 09/20/20 21:00 09/20/20 20:02 I have reviewed the current psychotropics carefully including drug interactions. Risk benefit ratio favors no change other than as noted in my dictated progress note. 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
--- NOTE | 2020-09-20 21:31 | PDOC ---
Exam Note: Osito Note: Please also refer to the separate dictated note~for this date of service dictated separately.~Patient seen individually. Discussed the patient with Nursing staff reviewed the chart.~Reviewed interim history and current functioning. Reviewed vital signs,~Labs/ Radiology~and current medications noted below. Continue current treatment with the changes noted in the dictated addendum note Assessment: Vital Signs/I&O: Vital Signs Date Time Temp Pulse Resp B/P (MAP) Pulse Ox O2 Delivery O2 Flow Rate FiO2 09/20/20 15:36 98.0 64 20 139/69 (92) 96 09/17/20 05:54 Room Air I & O 09/19/20 09/19/20 09/20/20 15:00 23:00 07:00 Intake Total 600 ml 360 ml Balance 600 ml 360 ml Labs: Laboratory Tests Test 09/20/20 05:45 [place] Level 0.7 mmol/L (0.6-1.2) [place] Last Dose Date 09/16/20 [place] Last Dose Time 2100 Current Medications: Meds: Current Medications Medications (Trade) Dose Ordered Sig/[place] Route PRN Reason Start Time Stop Time Status Last Admin Dose Admin Nicotine (Nicoderm Cq 7mg Patch) 1 patch DAILY TD 09/20/20 09:00 09/20/20 10:03 [place] Carbonate 150 mg HS PO 09/20/20 21:00 09/20/20 20:02 I have reviewed the current psychotropics carefully including drug interactions. Risk benefit ratio favors no change other than as noted in my dictated progress note. 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
--- NOTE | 2020-09-20 21:51 | NUR ---
PT in room in chair reading book at time of assessment/medication pass. PT compliant with medications, taking them whole with water.
[2020-09-21 06:06] VITALS: BP 143/84
--- NOTE | 2020-09-21 07:45 | PDOC ---
Exam Note: Osito Note: This note is a late entry for 09/20/2020 covers elements not covered in my initial note. Subjective: The patient was seen on telehealth rounds in the evening of 09/20/2020 with Jess HARO. Discussed with nursing staff, reviewed the chart. The patient slept 5-1/4 hours previous night. [place] level today is 0.7. The patient continues to have marked mood lability, intermittent crying spells. He had to be in the [place] to reduce his exposure to stimuli. Review of Systems: No CV, , pulmonary, eye system symptoms on review. Gait is somewhat unsteady. Mental Status Exam: The patient is oriented to himself. Speech is coherent. Abstraction is fair. Computation is impaired. Language function intact. Attention span is short. No suicidal or homicidal ideation. He continues to have some mood lability, some crying spells. No suicidal or homicidal ideation. Laboratory Data: Reviewed. Impression: Bipolar disorder manic with psychotic features. Anxiety disorder unspecified. Impulse control disorder unspecified. Plan: I have reviewed the patients labs. GFR is 49. He was previously on lithium carbonate 300 mg twice a day. We will restart at 150 mg daily. Check CBC, CMP, and lithium level in 3 days. Continue rest of the psychotropics unchanged and Depakote is therapeutic with level of 52. Assessment: Vital Signs/I&O: Vital Signs Date Time Temp Pulse Resp B/P (MAP) Pulse Ox O2 Delivery O2 Flow Rate FiO2 09/21/20 06:06 98.6 64 18 143/84 (103) 98 Room Air I & O 09/20/20 09/20/20 09/21/20 15:00 23:00 07:00 Intake Total 600 ml 360 ml Balance 600 ml 360 ml Current Medications: Meds: Current Medications Medications (Trade) Dose Ordered Sig/[place] Route PRN Reason Start Time Stop Time Status Last Admin Dose Admin Nicotine (Nicoderm Cq 7mg Patch) 1 patch DAILY TD 09/20/20 09:00 09/20/20 10:03 [place] Carbonate 150 mg HS PO 09/20/20 21:00 09/20/20 20:02 I have reviewed the current psychotropics carefully including drug interactions. Risk benefit ratio favors no change other than as noted in my dictated progress note. 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
[2020-09-21] MEDS: PRIMIDONE 50 MG TABLET PO SCH ×2 (08:11→20:02)
[2020-09-21] MEDS: ALLOPURINOL 100 MG TABLET. PO SCH (08:12)
[2020-09-21] MEDS: amLODIPine BESYLATE 5 MG TABLET PO SCH (08:12)
[2020-09-21] MEDS: MEMANTINE 10 MG TABLET. PO SCH ×2 (08:12→20:02)
[2020-09-21] MEDS: NICOTINE 7MG PATCH. TD SCH ×2 (08:14→09:00)
[2020-09-21] MEDS: GABAPENTIN 300 MG CAPSULE. PO SCH ×2 (08:14→20:03)
--- NOTE | 2020-09-21 11:35 | NUR ---
Nursing note: Pt in room for AM med pass and assessment. He was pleasant, med compliant and cooperative. Pt is preoccupied about calling his son this morning. Pt was allowed one phone call this morning and 5 minutes later wanted to call his son again because he "forgot to ask if he had enough gas for the turkey fryer". Pt was told that he made his one phone call this morning. He then walked down the hallway and is currently sitting in a chair singing hymns. Will continue to monitor.
--- NOTE | 2020-09-21 14:58 | NUR ---
Observed Johnny late morning become verbally aggressive, yelling profanities when he was unable to make another phone call. Observed Johnny to threaten a peer when Johnny's behavior prompted the peer to come to his doorway to see what was going on. [employer]IV[employer] MA[employer]GER intervened and JUAN FRANCISCO walked with Johnny to end of panama. 1:1 time provided for Johnny to express his feelings/frustrations. Johnny's mood quickly changed from being mad and verbally aggressive to crying and making references about Bennie. SW offered support and Johnny eventually calmed. SW provided Johnny with a magazine to read for distraction.
[2020-09-21 15:36] VITALS: BP 128/75
[2020-09-21] MEDS: LITHIUM CARBONATE 300 MG TABLET PO SCH (20:02)
[2020-09-21] MEDS: QUEtiapine 50 MG TABLET. PO SCH (20:03)
[2020-09-21] MEDS: MIRTAZAPINE 7.5 MG TABLET. PO SCH (20:03)
[2020-09-21] MEDS: ATORVASTATIN CALCIUM 20 MG TABLET PO SCH (20:04)
[2020-09-21] MEDS: traZODone 50 MG TABLET. PO PRN (20:04)
[2020-09-21] MEDS: DIVALPROEX ER 500 MG TAB.ER.24H PO SCH (20:05)
--- NOTE | 2020-09-21 20:46 | PDOC ---
Exam Note: Osito Note: Please also refer to the separate dictated note~for this date of service dictated separately.~Patient seen individually. Discussed the patient with Nursing staff reviewed the chart.~Reviewed interim history and current functioning. Reviewed vital signs,~Labs/ Radiology~and current medications noted below. Continue current treatment with the changes noted in the dictated addendum note Assessment: Vital Signs/I&O: Vital Signs Date Time Temp Pulse Resp B/P (MAP) Pulse Ox O2 Delivery O2 Flow Rate FiO2 09/21/20 15:36 98.0 62 16 128/75 (92) 98 09/21/20 06:06 Room Air I & O 09/20/20 09/20/20 09/21/20 15:00 23:00 07:00 Intake Total 600 ml 360 ml Balance 600 ml 360 ml Current Medications: Meds: Current Medications Medications (Trade) Dose Ordered Sig/[place] Route PRN Reason Start Time Stop Time Status Last Admin Dose Admin [place] Carbonate 150 mg HS PO 09/20/20 21:00 09/21/20 20:02 I have reviewed the current psychotropics carefully including drug interactions. Risk benefit ratio favors no change other than as noted in my dictated progress note. 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
--- NOTE | 2020-09-21 23:56 | NUR ---
Patient is sitting in the hallway on assumption of care. He is in pleasant spirits. Compliant with assessments and medications taken whole. No inappropriate comments or gestures made. No delusions voiced. Patient denies SI. Denies any pain or discomfort. He appears to be sleeping comfortably at present time. Will continue to monitor.
[2020-09-22 06:24] VITALS: BP 162/69
[2020-09-22] MEDS: PRIMIDONE 50 MG TABLET PO SCH ×2 (08:10→19:41)
[2020-09-22] MEDS: GABAPENTIN 300 MG CAPSULE. PO SCH ×2 (08:10→19:44)
[2020-09-22] MEDS: amLODIPine BESYLATE 5 MG TABLET PO SCH (08:10)
[2020-09-22] MEDS: ALLOPURINOL 100 MG TABLET. PO SCH (08:10)
[2020-09-22] MEDS: MEMANTINE 10 MG TABLET. PO SCH ×2 (08:10→19:42)
[2020-09-22] MEDS: NICOTINE 7MG PATCH. TD SCH ×2 (08:10→08:13)
--- NOTE | 2020-09-22 09:35 | NUR ---
Patient appears calm with breakfast. Patient complaint with medication. Patient impatient and tends to yell out when he is not addressed immediately.
[2020-09-22 16:38] VITALS: BP 154/74
[2020-09-22] MEDS: QUEtiapine 50 MG TABLET. PO SCH (19:43)
[2020-09-22] MEDS: LITHIUM CARBONATE 300 MG TABLET PO SCH (19:44)
[2020-09-22] MEDS: traZODone 50 MG TABLET. PO PRN (19:44)
[2020-09-22] MEDS: DIVALPROEX ER 500 MG TAB.ER.24H PO SCH (19:45)
[2020-09-22] MEDS: MIRTAZAPINE 7.5 MG TABLET. PO SCH (19:45)
[2020-09-22] MEDS: ATORVASTATIN CALCIUM 20 MG TABLET PO SCH (19:46)
--- NOTE | 2020-09-22 20:55 | PDOC ---
Exam Note: Osito Note: This note is a late entry for 09/21/2020 covers elements not covered in my initial note. Subjective: The patient was seen on telehealth rounds in the evening of 09/21/2020 with Jeanine HARO as the unit is on a lockdown by the [facility] because there were 2 patients who turned out positive for COVID-19 and no admission or discharges can be done for next 2 weeks due to the quarantine requirements. Discussed with nursing staff, reviewed the chart. The patient slept 3 hours previous night. He has been pleasant, tearful at times, still has ongoing mood lability. He remains grandiose, intermittently stating his best friend used to be Nirav Kiser and making other grandiose statements. We have reinitiated low-dose lithium given his somewhat low GFR and we have gone with lithium since the daughter has been very clear that is what has helped him the best for his bipolar disorder but we will have to reassess depending on kidney function. Review of Systems: No CV, , pulmonary, eye system symptoms on review. Gait is somewhat unsteady. Mental Status Exam: The patient is oriented to himself. Speech is coherent. Abstraction is fair. Computation is impaired. Language function intact. Attention span is short. No suicidal or homicidal ideation. Laboratory Data: Reviewed. Impression: Bipolar disorder manic with psychotic features. Anxiety disorder unspecified. Impulse control disorder unspecified. Plan: We will continue to reassess his psychotropics including adjusting the lithium gradually to reach therapeutic level to stabilize his bipolar disorder. Assessment: Vital Signs/I&O: Vital Signs Date Time Temp Pulse Resp B/P (MAP) Pulse Ox O2 Delivery O2 Flow Rate FiO2 09/22/20 16:38 97.8 64 18 154/74 (100) 96 09/22/20 06:24 Room Air I & O 09/21/20 09/21/20 09/22/20 15:00 23:00 07:00 Intake Total 480 ml 360 ml Balance 480 ml 360 ml Current Medications: I have reviewed the current psychotropics carefully including drug interactions. Risk benefit ratio favors no change other than as noted in my dictated progress note. 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
--- NOTE | 2020-09-22 21:08 | PDOC ---
Exam Note: Osito Note: Please also refer to the separate dictated note~for this date of service dictated separately.~Patient seen individually. Discussed the patient with Nursing staff reviewed the chart.~Reviewed interim history and current functioning. Reviewed vital signs,~Labs/ Radiology~and current medications noted below. Continue current treatment with the changes noted in the dictated addendum note Assessment: Vital Signs/I&O: Vital Signs Date Time Temp Pulse Resp B/P (MAP) Pulse Ox O2 Delivery O2 Flow Rate FiO2 09/22/20 16:38 97.8 64 18 154/74 (100) 96 09/22/20 06:24 Room Air I & O 09/21/20 09/21/20 09/22/20 15:00 23:00 07:00 Intake Total 480 ml 360 ml Balance 480 ml 360 ml Current Medications: I have reviewed the current psychotropics carefully including drug interactions. Risk benefit ratio favors no change other than as noted in my dictated progress note. 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
--- NOTE | 2020-09-22 22:07 | NUR ---
Patient is sitting in the quiet hallway on assumption of care, due to noncompliance with the mask policy. He is in pleasant spirits. Singing gospel and [place] songs. Compliant with assessments and medications taken whole. No inappropriate comments or gestures made. No delusions voiced. Patient denies SI. Denies any pain or discomfort. He appears to be sleeping comfortably at present time. Will continue to monitor.
[2020-09-23 06:15] VITALS: BP 144/62
[2020-09-23] MEDS: amLODIPine BESYLATE 5 MG TABLET PO SCH (07:19)
[2020-09-23] MEDS: ALLOPURINOL 100 MG TABLET. PO SCH (07:19)
[2020-09-23] MEDS: NICOTINE 7MG PATCH. TD SCH (07:20)
[2020-09-23] MEDS: GABAPENTIN 300 MG CAPSULE. PO SCH ×2 (07:20→19:24)
[2020-09-23] MEDS: MEMANTINE 10 MG TABLET. PO SCH ×2 (07:20→19:23)
[2020-09-23] MEDS: PRIMIDONE 50 MG TABLET PO SCH ×2 (07:20→19:25)
--- NOTE | 2020-09-23 07:47 | NUR ---
Went to place nicotine patch. Pt stated he didn't need it. When asked why, pt stated he hadn't smoked in 15 years. Patch dcd.
--- NOTE | 2020-09-23 15:15 | NUR ---
Pt has been restless and wandering. Singing [place] music. Preoccupied at times with lotion for arms. Easily redirectable. Requested a soft diet r/t having no teeth. Has been compliant with meds and cares.
[2020-09-23 15:56] VITALS: BP 139/72
[2020-09-23] MEDS: MIRTAZAPINE 7.5 MG TABLET. PO SCH (19:22)
[2020-09-23] MEDS: QUEtiapine 50 MG TABLET. PO SCH (19:23)
[2020-09-23] MEDS: traZODone 50 MG TABLET. PO PRN (19:23)
[2020-09-23] MEDS: LITHIUM CARBONATE 300 MG TABLET PO SCH (19:24)
[2020-09-23] MEDS: DIVALPROEX ER 500 MG TAB.ER.24H PO SCH (19:26)
[2020-09-23] MEDS: ATORVASTATIN CALCIUM 20 MG TABLET PO SCH (19:27)
--- NOTE | 2020-09-23 23:59 | NUR ---
Patient is sitting in the quiet hallway on assumption of care, due to noncompliance with the mask policy. He is in pleasant spirits. Singing gospel and [place] songs. Compliant with assessments and medications taken whole. Cooperative with shower and HS cares. No inappropriate comments or gestures made. No delusions voiced. Patient denies SI. Denies any pain or discomfort. He appears to be sleeping comfortably at present time. Will continue to monitor.
--- NOTE | 2020-09-24 00:17 | PDOC ---
Exam Note: Osito Note: Please also refer to the separate dictated note~for this date of service dictated separately.~Patient seen individually. Discussed the patient with Nursing staff reviewed the chart.~Reviewed interim history and current functioning. Reviewed vital signs,~Labs/ Radiology~and current medications noted below. Continue current treatment with the changes noted in the dictated addendum note Assessment: Vital Signs/I&O: Vital Signs Date Time Temp Pulse Resp B/P (MAP) Pulse Ox O2 Delivery O2 Flow Rate FiO2 09/23/20 15:56 98.3 61 16 139/72 (94) 98 09/23/20 06:15 Room Air I & O 09/23/20 09/23/20 09/24/20 15:00 23:00 07:00 Intake Total 720 ml 360 ml Balance 720 ml 360 ml Current Medications: I have reviewed the current psychotropics carefully including drug interactions. Risk benefit ratio favors no change other than as noted in my dictated progress note. 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
--- NOTE | 2020-09-24 00:28 | PDOC ---
Exam Note: Osito Note: This is a late entry for 09/23/2020. Please also refer to the separate dictated note~for this date of service dictated separately.~Patient seen individually. Discussed the patient with Nursing staff reviewed the chart.~Reviewed interim history and current functioning. Reviewed vital signs,~Labs/ Radiology~and cur rent medications noted below. Continue current treatment with the changes noted in the dictated addendum note Assessment: Vital Signs/I&O: Vital Signs Date Time Temp Pulse Resp B/P (MAP) Pulse Ox O2 Delivery O2 Flow Rate FiO2 09/23/20 15:56 98.3 61 16 139/72 (94) 98 09/23/20 06:15 Room Air I & O 09/23/20 09/23/20 09/24/20 15:00 23:00 07:00 Intake Total 720 ml 360 ml Balance 720 ml 360 ml Current Medications: I have reviewed the current psychotropics carefully including drug interactions. Risk benefit ratio favors no change other than as noted in my dictated progress note. 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
[2020-09-24] MEDS: traZODone 50 MG TABLET. PO PRN (01:27)
[2020-09-24 05:56] VITALS: BP 175/75
[2020-09-24 06:43] LABS: ALBUMIN 3.2 g/dL (3.4-5.0); ALBUMIN/GLOBULIN RATIO 0.8 (1.0-1.7); CALCIUM 8.5 mg/dL (8.5-10.1); CREATININE 1.2 mg/dL (0.7-1.3); GFR 58.7; POTASSIUM 5.5 mmol/L (3.5-5.1); TOTAL BILIRUBIN 0.2 mg/dL (0.2-1.0)
[2020-09-24] MEDS: GABAPENTIN 300 MG CAPSULE. PO SCH ×2 (07:41→19:52)
[2020-09-24] MEDS: PRIMIDONE 50 MG TABLET PO SCH ×2 (07:41→19:51)
[2020-09-24] MEDS: amLODIPine BESYLATE 5 MG TABLET PO SCH (07:41)
[2020-09-24] MEDS: ALLOPURINOL 100 MG TABLET. PO SCH (07:42)
[2020-09-24] MEDS: MEMANTINE 10 MG TABLET. PO SCH ×2 (07:42→19:49)
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
--- NOTE | 2020-09-24 10:04 | NUR ---
Nursing note: Pt in [facility] for AM meds and assessment. He was pleasant, med compliant and cooperative at that time. Pt has become increasingly protestant and agitated throughout the morning. Making statements to multiple staff members "RN?! How can you call yourself an RN?! You don't know a goddamn thing!" Pt looking through the nurses station window at nurse talking on the phone, pt hollered out that she was on the phone with her boyfriend and began making masturbating gestures. Pt continues to be in [facility] and PRN was administered. Will continue to monitor.
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
--- NOTE | 2020-09-24 12:16 | NUR ---
SW provided update to hemant Quintanilla/NA, including that there has been a Covid exposure on the unit and that the unit will be quarantined for 14 days.
[2020-09-24 14:25] VITALS: BP 129/61
[2020-09-24] MEDS: MIRTAZAPINE 7.5 MG TABLET. PO SCH (19:48)
[2020-09-24] MEDS: ATORVASTATIN CALCIUM 20 MG TABLET PO SCH (19:49)
[2020-09-24] MEDS: LITHIUM CARBONATE 300 MG TABLET PO SCH (19:50)
[2020-09-24] MEDS: QUEtiapine 50 MG TABLET. PO SCH (19:51)
[2020-09-24] MEDS: DIVALPROEX ER 500 MG TAB.ER.24H PO SCH (19:52)
--- NOTE | 2020-09-24 20:49 | PDOC ---
Exam Note: Osito Note: Please also refer to the separate dictated note~for this date of service dictated separately.~Patient seen individually. Discussed the patient with Nursing staff reviewed the chart.~Reviewed interim history and current functioning. Reviewed vital signs,~Labs/ Radiology~and current medications noted below. Continue current treatment with the changes noted in the dictated addendum note Assessment: Vital Signs/I&O: Vital Signs Date Time Temp Pulse Resp B/P (MAP) Pulse Ox O2 Delivery O2 Flow Rate FiO2 09/24/20 14:25 97.6 66 16 129/61 (83) 98 09/23/20 06:15 Room Air I & O 09/23/20 09/23/20 09/24/20 15:00 23:00 07:00 Intake Total 720 ml 360 ml Balance 720 ml 360 ml Labs: Laboratory Tests Test 09/24/20 06:10 Sodium Level 141 mmol/L (136-145) Potassium Level 5.5 mmol/L (3.5-5.1) H Chloride Level 105 mmol/L (98-107) Carbon Dioxide Level 30 mmol/L (21-32) Anion Gap 6 (6-14) Blood Urea Nitrogen 26 mg/dL (8-26) Creatinine 1.2 mg/dL (0.7-1.3) Estimated GFR (Cockcroft-Gault) 58.7 BUN/Creatinine Ratio 22 (6-20) H Glucose Level 83 mg/dL (70-99) Calcium Level 8.5 mg/dL (8.5-10.1) Total Bilirubin 0.2 mg/dL (0.2-1.0) Aspartate Amino Transferase (AST) 26 U/L (15-37) Alanine Aminotransferase (ALT) 30 U/L (16-63) Alkaline Phosphatase 94 U/L (46-116) Total Protein 7.0 g/dL (6.4-8.2) Albumin 3.2 g/dL (3.4-5.0) L Albumin/Globulin Ratio 0.8 (1.0-1.7) L [place] Level 0.5 mmol/L (0.6-1.2) L [place] Last Dose Date 09-23-20 [place] Last Dose Time 2100 Current Medications: Meds: Current Medications Medications (Trade) Dose Ordered Sig/[place]enzie Route PRN Reason Start Time Stop Time Status Last Admin Dose Admin Quetiapine Fumarate (SEROquel) 50 mg BID PO 09/24/20 21:00 09/24/20 19:51 [place] Carbonate 150 mg BID PO 09/24/20 21:00 09/24/20 19:50 I have reviewed the current psychotropics carefully including drug interactions. Risk benefit ratio favors no change other than as noted in my dictated progress note. 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
--- NOTE | 2020-09-25 03:14 | NUR ---
Last evening pt was cooperative with assessment and meds. He asked if I could hear the voices too. He said he can hear people talking and scratching on the boo he also said he sees shadows of people, women looking for their men, walking through his room. He also said this place is [place] on a [place] yard. He then began talking about Bennie and the bible and how he has been saved. After meds he read his bible for awhile then he went to bed and has been sleeping well.
[2020-09-25 05:27] VITALS: BP 142/76
[2020-09-25] MEDS: amLODIPine BESYLATE 5 MG TABLET PO SCH (07:51)
[2020-09-25] MEDS: MEMANTINE 10 MG TABLET. PO SCH ×2 (07:51→19:42)
[2020-09-25] MEDS: ALLOPURINOL 100 MG TABLET. PO SCH (07:51)
[2020-09-25] MEDS: PRIMIDONE 50 MG TABLET PO SCH ×2 (07:51→19:42)
[2020-09-25] MEDS: LITHIUM CARBONATE 300 MG TABLET PO SCH ×2 (07:52→19:41)
[2020-09-25] MEDS: QUEtiapine 50 MG TABLET. PO SCH ×2 (07:52→19:43)
[2020-09-25] MEDS: GABAPENTIN 300 MG CAPSULE. PO SCH ×2 (07:52→19:43)
--- NOTE | 2020-09-25 08:33 | PDOC ---
Exam Note: Osito Note: This note is a late entry for 09/22/2020 covers elements not covered in my initial note. Subjective: The patient was seen on telehealth rounds in the evening of 09/22/2020 with Darlene HARO as the unit is on a lockdown by the [facility] of [facility] because of COVID-19 exposure on the unit and no admission or discharges can be done for next 2 weeks due to the quarantine requirements. Discussed with nursing staff, reviewed the chart. The patient slept 6-3/4 hours previous night. The patient remains somewhat grandiose, labile in his mood, psychotic. He has been singing [place] songs loudly, gets frustrated. He had not had to go to the [facility]. Review of Systems: No CV, , pulmonary, eye system symptoms on review. Mental Status Exam: The patient is oriented to himself. Speech is coherent, hyperverbal at times with ongoing mood lability. Abstraction is fair. Computation is impaired. Language function intact. Attention span is short. No suicidal or homicidal ideation. Mood is labile but at times better. Laboratory Data: Reviewed. Impression: Bipolar disorder manic with psychotic features. Anxiety disorder unspecified. Impulse control disorder unspecified. Plan: No change from initial note. Assessment: Vital Signs/I&O: Vital Signs Date Time Temp Pulse Resp B/P (MAP) Pulse Ox O2 Delivery O2 Flow Rate FiO2 09/25/20 07:51 54 142/76 09/25/20 05:27 97.6 20 98 09/24/20 22:51 Room Air I & O 09/24/20 09/24/20 09/25/20 15:00 23:00 07:00 Intake Total 560 ml 480 ml Balance 560 ml 480 ml Current Medications: Meds: Current Medications Medications (Trade) Dose Ordered Sig/[place]enzie Route PRN Reason Start Time Stop Time Status Last Admin Dose Admin Quetiapine Fumarate (SEROquel) 50 mg BID PO 09/24/20 21:00 09/25/20 07:52 [place] Carbonate 150 mg BID PO 09/24/20 21:00 09/25/20 07:52 I have reviewed the current psychotropics carefully including drug interactions. Risk benefit ratio favors no change other than as noted in my dictated progress note. 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
--- NOTE | 2020-09-25 08:52 | PDOC ---
Exam Note: Osito Note: This note is a late entry for 09/23/2020 covers elements not covered in my initial note. Subjective: The patient was seen on telehealth rounds in the evening of 09/23/2020 with Zelda HARO as the unit is on a lockdown by the [facility] of [facility] of COVID-19 exposure on the unit and no admission or discharges can be done for next 2 weeks due to the quarantine requirements. Discussed with nursing staff, reviewed the chart. The patient slept 6-3/4 hours previous night. He has been better but had to be in the quiet hallway at one time to reduce stimuli that increases his agitation. [place] level to be checked on the 09/24 and we will adjust the lithium thereafter. Review of Systems: No CV, , pulmonary, eye system symptoms on review. Gait is somewhat unsteady. Mental Status Exam: The patient is oriented to himself. Speech is coherent. Abstraction is fair. Computation is impaired. Language function intact. Attention span is short. No suicidal or homicidal ideation. During the visit, the patient remains somewhat grandiose at times with ongoing mood lability but showing some improvement. Laboratory Data: Reviewed. Impression: Bipolar disorder manic with psychotic features. Anxiety disorder unspecified. Impulse control disorder unspecified. Plan: No change from initial note. Assessment: Vital Signs/I&O: Vital Signs Date Time Temp Pulse Resp B/P (MAP) Pulse Ox O2 Delivery O2 Flow Rate FiO2 09/25/20 07:51 54 142/76 09/25/20 05:27 97.6 20 98 09/24/20 22:51 Room Air I & O 09/24/20 09/24/20 09/25/20 15:00 23:00 07:00 Intake Total 560 ml 480 ml Balance 560 ml 480 ml Current Medications: Meds: Current Medications Medications (Trade) Dose Ordered Sig/[place] Route PRN Reason Start Time Stop Time Status Last Admin Dose Admin Quetiapine Fumarate (SEROquel) 50 mg BID PO 09/24/20 21:00 09/25/20 07:52 [place] Carbonate 150 mg BID PO 09/24/20 21:00 09/25/20 07:52 I have reviewed the current psychotropics carefully including drug interactions. Risk benefit ratio favors no change other than as noted in my dictated progress note. 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
--- NOTE | 2020-09-25 09:06 | PDOC ---
Exam Note: Osito Note: This note is a late entry for 09/24/2020 covers elements not covered in my initial note. Subjective: The patient was seen on telehealth rounds in the morning of 09/24/2020 for treatment team meeting with Verónica Pollard, clinical social work aide, Ally, activity therapy and Jeanine HARO as the unit is on a lockdown by the [facility] of COVID-19 exposure on the unit and no admission or discharges can be done for next 2 weeks due to the quarantine requirements. Discussed with nursing staff, reviewed the chart. The patient slept 5-1/2 hours previous night. Appetite is 50%. He gets easily over- stimulated, had to be in the West hallway, hyper-christian at times, hollering out, cursing at staff. He has been hypersexual at times with marked mood lability. On telehealth rounds in the evening he was asking me first if I believed in Bennie and when I responded in the affirmative he said he was Bennie and demanding that I discharge him. I did inform him there had been Covid exposure on the unit and unit was on lockdown by the [facility]. Review of Systems: No CV, , pulmonary, eye system symptoms on review. Mental Status Exam: The patient is oriented to himself. Speech is coherent. Abstraction is fair. Computation is impaired. Language function intact. Attention span is short. No suicidal or homicidal ideation. Laboratory Data: Reviewed. Impression: Bipolar disorder manic with psychotic features. Anxiety disorder unspecified. Impulse control disorder unspecified. Plan: No change from initial note. [place] level today is 0.5 on lithium carbonate 150 mg h.s. We will increase to 150 mg twice a day. Check CBC, CMP, lithium level in 3 days. We will also increase the patients Seroquel to 50 mg twice a day given his ongoing mood lability, grandiosity and psychotic symptoms. We will adjust further as clinically indicated. Assessment: Vital Signs/I&O: Vital Signs Date Time Temp Pulse Resp B/P (MAP) Pulse Ox O2 Delivery O2 Flow Rate FiO2 09/25/20 07:51 54 142/76 09/25/20 05:27 97.6 20 98 09/24/20 22:51 Room Air I & O 09/24/20 09/24/20 09/25/20 15:00 23:00 07:00 Intake Total 560 ml 480 ml Balance 560 ml 480 ml Current Medications: Meds: Current Medications Medications (Trade) Dose Ordered Sig/Mackenzie Route PRN Reason Start Time Stop Time Status Last Admin Dose Admin Quetiapine Fumarate (SEROquel) 50 mg BID PO 09/24/20 21:00 09/25/20 07:52 [place] Carbonate 150 mg BID PO 09/24/20 21:00 09/25/20 07:52 I have reviewed the current psychotropics carefully including drug interactions. Risk benefit ratio favors no change other than as noted in my dictated progress note. 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
--- NOTE | 2020-09-25 09:13 | NUR ---
Nursing note: Pt is pleasant, med compliant and cooperative this morning. He is tearful at times, wanting to leave. He says he saw the doctor last night and he said pt could leave today. Pt was reminded of the unit's 14 day quarantine. He was not happy about this response, but accepted it. He has been walking around the unit and enjoying looking at the [place] tree through the window. He denied any pain or hallucinations this morning. Will continue to monitor.
[2020-09-25 15:40] VITALS: BP 97/55
[2020-09-25] MEDS: ATORVASTATIN CALCIUM 20 MG TABLET PO SCH (19:41)
[2020-09-25] MEDS: MIRTAZAPINE 7.5 MG TABLET. PO SCH (19:42)
[2020-09-25] MEDS: DIVALPROEX ER 500 MG TAB.ER.24H PO SCH (19:42)
--- NOTE | 2020-09-25 21:00 | PDOC ---
Exam Note: Osito Note: Please also refer to the separate dictated note~for this date of service dictated separately.~Patient seen individually. Discussed the patient with Nursing staff reviewed the chart.~Reviewed interim history and current functioning. Reviewed vital signs,~Labs/ Radiology~and current medications noted below. Continue current treatment with the changes noted in the dictated addendum note Assessment: Vital Signs/I&O: Vital Signs Date Time Temp Pulse Resp B/P (MAP) Pulse Ox O2 Delivery O2 Flow Rate FiO2 09/25/20 15:40 97.6 58 16 97/55 (69) 97 09/24/20 22:51 Room Air I & O 09/24/20 09/24/20 09/25/20 15:00 23:00 07:00 Intake Total 560 ml 480 ml Balance 560 ml 480 ml Current Medications: Meds: Current Medications Medications (Trade) Dose Ordered Sig/[place]enzie Route PRN Reason Start Time Stop Time Status Last Admin Dose Admin Quetiapine Fumarate (SEROquel) 50 mg BID PO 09/24/20 21:00 09/25/20 19:43 [place] Carbonate 150 mg BID PO 09/24/20 21:00 09/25/20 19:41 I have reviewed the current psychotropics carefully including drug interactions. Risk benefit ratio favors no change other than as noted in my dictated progress note. 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
[2020-09-26 06:11] LABS: BASO # 0.1 x10^3/uL (0.0-0.2); BASO % 1 % (0-3); EOS # 0.2 x10^3/uL (0.0-0.7); EOS % 3 % (0-3); HEMATOCRIT 38.3 % (39.0-53.0); LYMPH # 2.1 x10^3/uL (1.0-4.8); LYMPH % 29 % (24-48); MEAN CORPUSCULAR HEMOGLOBIN 30 pg (25-35); MEAN CORPUSCULAR HGB CONC 31 g/dL (31-37); MEAN CORPUSCULAR VOLUME 97 fL (79-100); MONO # 0.8 x10^3/uL (0.0-1.1); MONO % 11 % (0-9); NEUT # 3.9 x10^3uL (1.8-7.7); NEUT % 56 % (31-73); PLATELET COUNT 179 x10^3/uL (140-400); RED BLOOD COUNT 3.97 x10^6/uL (4.30-5.70); RED CELL DISTRIBUTION WIDTH 15.3 % (11.5-14.5)
[2020-09-26 06:14] VITALS: BP 152/81
[2020-09-26 06:16] LABS: CALCIUM 8.4 mg/dL (8.5-10.1); CREATININE 1.3 mg/dL (0.7-1.3); GFR 53.5; POTASSIUM 5.2 mmol/L (3.5-5.1)
[2020-09-26] MEDS: PRIMIDONE 50 MG TABLET PO SCH ×2 (07:59→19:46)
[2020-09-26] MEDS: GABAPENTIN 300 MG CAPSULE. PO SCH ×2 (07:59→19:46)
[2020-09-26] MEDS: LITHIUM CARBONATE 300 MG TABLET PO SCH ×2 (08:00→19:47)
[2020-09-26] MEDS: ALLOPURINOL 100 MG TABLET. PO SCH (08:00)
[2020-09-26] MEDS: QUEtiapine 50 MG TABLET. PO SCH ×2 (08:00→19:46)
[2020-09-26] MEDS: MEMANTINE 10 MG TABLET. PO SCH ×2 (08:00→19:46)
[2020-09-26] MEDS: amLODIPine BESYLATE 5 MG TABLET PO SCH (08:00)
--- NOTE | 2020-09-26 09:32 | NUR ---
Nursing note: Pt in his room for AM med pass and assessment. He was pleasant, med compliant and cooperative. Pt believes he is going home today, when it was reinforced to him that the unit was on quarantine, he became very angry and upset "the doctor told me last night I could go home today!" Pt was left in his room to continue listening to hymns on the april. He later came out of his room stating that he's going to beat someone up and walked down the hallway yelling "I don't give a fuck about anything anymore!" as he was pretending to be shooting a machine gun down the hallway. Pt stated to this nurse, "when you see that doctor come here today, you send that son of a bitch my way so I can...(hitting his fist into the palm of his hand), he's kept me here for 6 days and made $1000 on me! I need to go home!" Pt walked away and began walking down the hallway singing 'How great thou art'. Will continue to monitor.
[2020-09-26 15:06] VITALS: BP 144/75
[2020-09-26] MEDS: MIRTAZAPINE 7.5 MG TABLET. PO SCH (19:46)
[2020-09-26] MEDS: ATORVASTATIN CALCIUM 20 MG TABLET PO SCH (19:46)
[2020-09-26] MEDS: traZODone 50 MG TABLET. PO PRN (19:46)
[2020-09-26] MEDS: DIVALPROEX ER 500 MG TAB.ER.24H PO SCH (19:47)
--- NOTE | 2020-09-26 20:39 | NUR ---
Pt withdrawn to his room, lying in bed asleep when approached. Pt calm and pleasant when I woke him, interactive but disorganized. Pt thought it was morning and time to get up for the day. Pt easily redirected at this time. Pt cooperative with assessment and compliant with medications administered whole. Pt currently resting quietly in bed with eyes closed.
--- NOTE | 2020-09-26 20:45 | PDOC ---
Exam Note: Osito Note: Please also refer to the separate dictated note~for this date of service dictated separately.~Patient seen individually. Discussed the patient with Nursing staff reviewed the chart.~Reviewed interim history and current functioning. Reviewed vital signs,~Labs/ Radiology~and current medications noted below. Continue current treatment with the changes noted in the dictated addendum note Assessment: Vital Signs/I&O: Vital Signs Date Time Temp Pulse Resp B/P (MAP) Pulse Ox O2 Delivery O2 Flow Rate FiO2 09/26/20 15:06 98.0 59 18 144/75 (98) 97 09/24/20 22:51 Room Air I & O 09/25/20 09/25/20 09/26/20 15:00 23:00 07:00 Intake Total 600 ml 480 ml 120 ml Balance 600 ml 480 ml 120 ml Labs: Laboratory Tests Test 09/26/20 06:00 White Blood Count 7.0 x10^3/uL (4.0-11.0) Red Blood Count 3.97 x10^6/uL (4.30-5.70) L Hemoglobin 12.0 g/dL (13.0-17.5) L Hematocrit 38.3 % (39.0-53.0) L Mean Corpuscular Volume 97 fL (79-100) Mean Corpuscular Hemoglobin 30 pg (25-35) Mean Corpuscular Hemoglobin Concent 31 g/dL (31-37) Red Cell Distribution Width 15.3 % (11.5-14.5) H Platelet Count 179 x10^3/uL (140-400) Neutrophils (%) (Auto) 56 % (31-73) Lymphocytes (%) (Auto) 29 % (24-48) Monocytes (%) (Auto) 11 % (0-9) H Eosinophils (%) (Auto) 3 % (0-3) Basophils (%) (Auto) 1 % (0-3) Neutrophils # (Auto) 3.9 x10^3uL (1.8-7.7) Lymphocytes # (Auto) 2.1 x10^3/uL (1.0-4.8) Monocytes # (Auto) 0.8 x10^3/uL (0.0-1.1) Eosinophils # (Auto) 0.2 x10^3/uL (0.0-0.7) Basophils # (Auto) 0.1 x10^3/uL (0.0-0.2) Sodium Level 140 mmol/L (136-145) Potassium Level 5.2 mmol/L (3.5-5.1) H Chloride Level 105 mmol/L (98-107) Carbon Dioxide Level 31 mmol/L (21-32) Anion Gap 4 (6-14) L Blood Urea Nitrogen 33 mg/dL (8-26) H Creatinine 1.3 mg/dL (0.7-1.3) Estimated GFR (Cockcroft-Gault) 53.5 Glucose Level 82 mg/dL (70-99) Calcium Level 8.4 mg/dL (8.5-10.1) L Current Medications: I have reviewed the current psychotropics carefully including drug interactions. Risk benefit ratio favors no change other than as noted in my dictated progress note. 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
[2020-09-27 06:04] VITALS: BP 153/76
[2020-09-27] MEDS: QUEtiapine 50 MG TABLET. PO SCH ×2 (07:48→19:26)
[2020-09-27] MEDS: LITHIUM CARBONATE 300 MG TABLET PO SCH ×2 (07:48→19:27)
[2020-09-27] MEDS: GABAPENTIN 300 MG CAPSULE. PO SCH ×2 (07:48→19:26)
[2020-09-27] MEDS: amLODIPine BESYLATE 5 MG TABLET PO SCH (07:48)
[2020-09-27] MEDS: PRIMIDONE 50 MG TABLET PO SCH ×2 (07:48→19:27)
[2020-09-27] MEDS: MEMANTINE 10 MG TABLET. PO SCH ×2 (07:48→19:26)
[2020-09-27] MEDS: ALLOPURINOL 100 MG TABLET. PO SCH (07:48)
--- NOTE | 2020-09-27 10:13 | NUR ---
Nursing note: Pt has been walking around the unit this morning. He is pleasant, med compliant and cooperative. Pt came up to nurse earlier in the shift and asked to make a phone call. It was suggested that he wait about another 45 minutes. Pt was accepting of this suggestion and he calmly walked away singing. 45 minutes later, pt again asked politely to use the phone. Phone call was allowed and he is currently talking to his daughter. Will continue to monitor.
[2020-09-27 15:03] VITALS: BP 129/78
[2020-09-27] MEDS: PHENYLEPH/MINERAL OIL/PETROLAT RECTAL OINTMENT TUBE. RC PRN ×2 (15:23→19:27)
[2020-09-27] MEDS: MIRTAZAPINE 7.5 MG TABLET. PO SCH (19:26)
[2020-09-27] MEDS: traZODone 50 MG TABLET. PO PRN ×2 (19:26→22:14)
[2020-09-27] MEDS: ATORVASTATIN CALCIUM 20 MG TABLET PO SCH (19:26)
[2020-09-27] MEDS: DIVALPROEX ER 500 MG TAB.ER.24H PO SCH (19:26)
--- NOTE | 2020-09-27 20:58 | PDOC ---
Exam Note: Osito Note: Please also refer to the separate dictated note~for this date of service dictated separately.~Patient seen individually. Discussed the patient with Nursing staff reviewed the chart.~Reviewed interim history and current functioning. Reviewed vital signs,~Labs/ Radiology~and current medications noted below. Continue current treatment with the changes noted in the dictated addendum note Assessment: Vital Signs/I&O: Vital Signs Date Time Temp Pulse Resp B/P (MAP) Pulse Ox O2 Delivery O2 Flow Rate FiO2 09/27/20 15:03 97.8 65 18 129/78 (95) 97 09/27/20 06:04 Room Air I & O 09/26/20 09/26/20 09/27/20 15:00 23:00 07:00 Intake Total 1080 ml 480 ml 360 ml Balance 1080 ml 480 ml 360 ml Current Medications: I have reviewed the current psychotropics carefully including drug interactions. Risk benefit ratio favors no change other than as noted in my dictated progress note. 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
--- NOTE | 2020-09-27 21:16 | NUR ---
Pt sitting in hallway singing at shift change. Pt calm, pleasant, and calm when approached but became agitated when he was not given lotion right away when he asked for it. Pt began yelling at the male nurse as he was trying to reason with pt. I was able to step in and talk to pt and calm him down. Pt was redirected to his room to sit quietly and was told that I would bring him lotion when I returned with his HS medications, to which pt was agreeable. Pt cooperative with assessment and compliant with medications administered whole. Pt currently resting quietly in bed.
[2020-09-28 06:32] VITALS: BP 118/70
[2020-09-28 06:39] LABS: BASO # 0.1 x10^3/uL (0.0-0.2); BASO % 1 % (0-3); EOS # 0.2 x10^3/uL (0.0-0.7); EOS % 3 % (0-3); HEMOGLOBIN 11.6 g/dL (13.0-17.5); LYMPH # 2.2 x10^3/uL (1.0-4.8); LYMPH % 32 % (24-48); MEAN CORPUSCULAR HEMOGLOBIN 30 pg (25-35); MEAN CORPUSCULAR HGB CONC 31 g/dL (31-37); MEAN CORPUSCULAR VOLUME 97 fL (79-100); MONO # 0.7 x10^3/uL (0.0-1.1); MONO % 11 % (0-9); NEUT # 3.7 x10^3uL (1.8-7.7); NEUT % 53 % (31-73); PLATELET COUNT 165 x10^3/uL (140-400); RED BLOOD COUNT 3.81 x10^6/uL (4.30-5.70); RED CELL DISTRIBUTION WIDTH 15.7 % (11.5-14.5); WHITE BLOOD COUNT 6.9 x10^3/uL (4.0-11.0)
[2020-09-28 06:57] LABS: ALBUMIN 3.1 g/dL (3.4-5.0); ALBUMIN/GLOBULIN RATIO 0.8 (1.0-1.7); CALCIUM 8.4 mg/dL (8.5-10.1); CREATININE 1.4 mg/dL (0.7-1.3); GFR 49.1; POTASSIUM 5.3 mmol/L (3.5-5.1); TOTAL BILIRUBIN 0.3 mg/dL (0.2-1.0)
[2020-09-28] MEDS: MEMANTINE 10 MG TABLET. PO SCH ×2 (07:40→19:22)
[2020-09-28] MEDS: PRIMIDONE 50 MG TABLET PO SCH ×2 (07:40→19:23)
[2020-09-28] MEDS: ALLOPURINOL 100 MG TABLET. PO SCH (07:40)
[2020-09-28] MEDS: LITHIUM CARBONATE 300 MG TABLET PO SCH ×2 (07:40→19:22)
[2020-09-28] MEDS: QUEtiapine 50 MG TABLET. PO SCH ×2 (07:40→19:22)
[2020-09-28] MEDS: GABAPENTIN 300 MG CAPSULE. PO SCH ×2 (07:40→19:22)
[2020-09-28] MEDS: amLODIPine BESYLATE 5 MG TABLET PO SCH (07:40)
--- NOTE | 2020-09-28 07:58 | PDOC ---
Exam Note: Osito Note: This note is a late entry for 09/25/2020 covers elements not covered in my initial note. Subjective: The patient was seen on telehealth rounds in the evening of 09/25/2020 with Jeanine HARO as the unit is on a lockdown by the [facility] of COVID-19 exposure on the unit and no admission or discharges can be done. Discussed with nursing staff, reviewed the chart. The patient slept 5- 1/2 hours previous night. He was doing better today per nursing report. Previous evening he was having active hallucinations, was seeing a shadow of a person, looking for a male and a female person, talking about people scratching and touching him and people talking in the distance. He denied all of this as I met with him. Review of Systems: No CV, , pulmonary, eye, ENT system symptoms on review. Mental Status Exam: The patient is oriented to himself and situation. He is quite agitated, angry, threatening me that he would report me to the Board for not discharging him. I discussed with him that the unit was on quarantine from the health department due to COVID exposure on the unit but he was having nothing of it. He was quite paranoid and suspicious, distractible. Abstraction is fair. Computation is impaired. Language function intact. Attention span is short. No active suicidal or homicidal ideation. Laboratory Data: Reviewed. Impression: Bipolar disorder manic with psychotic features. Anxiety disorder unspecified. Impulse control disorder unspecified. Plan: Continue rest of the psychotropics. Adjust Depakote to reach therapeutic level. [place] is being adjusted as well currently 150 mg b.i.d. Next set of labs on 09/28. Assessment: Vital Signs/I&O: Vital Signs Date Time Temp Pulse Resp B/P (MAP) Pulse Ox O2 Delivery O2 Flow Rate FiO2 09/28/20 07:40 63 118/70 09/28/20 06:32 97.3 18 94 09/27/20 06:04 Room Air I & O 09/27/20 09/27/20 09/28/20 15:00 23:00 07:00 Intake Total 600 ml 360 ml Balance 600 ml 360 ml Labs: Laboratory Tests Test 09/28/20 06:27 White Blood Count 6.9 x10^3/uL (4.0-11.0) Red Blood Count 3.81 x10^6/uL (4.30-5.70) L Hemoglobin 11.6 g/dL (13.0-17.5) L Hematocrit 37.0 % (39.0-53.0) L Mean Corpuscular Volume 97 fL (79-100) Mean Corpuscular Hemoglobin 30 pg (25-35) Mean Corpuscular Hemoglobin Concent 31 g/dL (31-37) Red Cell Distribution Width 15.7 % (11.5-14.5) H Platelet Count 165 x10^3/uL (140-400) Neutrophils (%) (Auto) 53 % (31-73) Lymphocytes (%) (Auto) 32 % (24-48) Monocytes (%) (Auto) 11 % (0-9) H Eosinophils (%) (Auto) 3 % (0-3) Basophils (%) (Auto) 1 % (0-3) Neutrophils # (Auto) 3.7 x10^3uL (1.8-7.7) Lymphocytes # (Auto) 2.2 x10^3/uL (1.0-4.8) Monocytes # (Auto) 0.7 x10^3/uL (0.0-1.1) Eosinophils # (Auto) 0.2 x10^3/uL (0.0-0.7) Basophils # (Auto) 0.1 x10^3/uL (0.0-0.2) Sodium Level 141 mmol/L (136-145) Potassium Level 5.3 mmol/L (3.5-5.1) H Chloride Level 106 mmol/L (98-107) Carbon Dioxide Level 31 mmol/L (21-32) Anion Gap 4 (6-14) L Blood Urea Nitrogen 36 mg/dL (8-26) H Creatinine 1.4 mg/dL (0.7-1.3) H Estimated GFR (Cockcroft-Gault) 49.1 BUN/Creatinine Ratio 26 (6-20) H Glucose Level 86 mg/dL (70-99) Calcium Level 8.4 mg/dL (8.5-10.1) L Total Bilirubin 0.3 mg/dL (0.2-1.0) Aspartate Amino Transferase (AST) 26 U/L (15-37) Alanine Aminotransferase (ALT) 31 U/L (16-63) Alkaline Phosphatase 86 U/L (46-116) Total Protein 7.0 g/dL (6.4-8.2) Albumin 3.1 g/dL (3.4-5.0) L Albumin/Globulin Ratio 0.8 (1.0-1.7) L Current Medications: I have reviewed the current psychotropics carefully including drug interactions. Risk benefit ratio favors no change other than as noted in my dictated progress note. 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
--- NOTE | 2020-09-28 08:00 | NUR ---
Nursing note: Pt sitting quietly in hallway reading the newspaper. He was med compliant and cooperative. Pt then began to walk around the unit and refused to wear his mask, after multiple attempts at redirection and encouragement to wear his mask, pt became very agitated and was yelling out. He was brought to the [facility] for deescalation where he continued to yell "oh fuck all yall, I don't give a fuck! Go ahead and kill me I don't even give a damn!" Pt was left alone and brought his breakfast tray. He is now eating his breakfast. Will continue to monitor.
--- NOTE | 2020-09-28 08:12 | PDOC ---
Exam Note: Osito Note: This note is a late entry for 09/26/2020 covers elements not covered in my initial note. Subjective: The patient was seen on telehealth rounds in the evening of 09/26/2020 with Jeanine HARO as the unit is on a lockdown by the [facility] of COVID-19 exposure on the unit and no admission or discharges can be done. Discussed with nursing staff, reviewed the chart. The patient slept 3 hours previous night. He did well previous night but quite agitated later in the evening and during the day on 09/26. He was threatening staff in the morning wanting to be discharged, making hand gestures like he had a machine gun and was shooting everyone. [place] level is to be checked on the 09/28. I addressed the above with him. Review of Systems: No CV, , pulmonary, eye, ENT system symptoms on review. Mental Status Exam: The patient is oriented to himself and situation. He is somewhat agitated, labile in his mood, paranoid, suspicious. I again discussed at length about discharge plans and health department restrictions and COVID-19 exposure on the unit but he was quite dismissive, adamant that he would report me to the Board. Abstraction is fair. Computation is impaired. Language function intact. Attention span is short. No suicidal or homicidal ideation. Laboratory Data: Reviewed. Impression: Bipolar disorder manic with psychotic features. Anxiety disorder unspecified. Impulse control disorder unspecified. Plan: No change from initial note. Check lithium level on 09/28. Assessment: Vital Signs/I&O: Vital Signs Date Time Temp Pulse Resp B/P (MAP) Pulse Ox O2 Delivery O2 Flow Rate FiO2 09/28/20 07:40 63 118/70 09/28/20 06:32 97.3 18 94 09/27/20 06:04 Room Air I & O 09/27/20 09/27/20 09/28/20 15:00 23:00 07:00 Intake Total 600 ml 360 ml Balance 600 ml 360 ml Labs: Laboratory Tests Test 09/28/20 06:27 White Blood Count 6.9 x10^3/uL (4.0-11.0) Red Blood Count 3.81 x10^6/uL (4.30-5.70) L Hemoglobin 11.6 g/dL (13.0-17.5) L Hematocrit 37.0 % (39.0-53.0) L Mean Corpuscular Volume 97 fL (79-100) Mean Corpuscular Hemoglobin 30 pg (25-35) Mean Corpuscular Hemoglobin Concent 31 g/dL (31-37) Red Cell Distribution Width 15.7 % (11.5-14.5) H Platelet Count 165 x10^3/uL (140-400) Neutrophils (%) (Auto) 53 % (31-73) Lymphocytes (%) (Auto) 32 % (24-48) Monocytes (%) (Auto) 11 % (0-9) H Eosinophils (%) (Auto) 3 % (0-3) Basophils (%) (Auto) 1 % (0-3) Neutrophils # (Auto) 3.7 x10^3uL (1.8-7.7) Lymphocytes # (Auto) 2.2 x10^3/uL (1.0-4.8) Monocytes # (Auto) 0.7 x10^3/uL (0.0-1.1) Eosinophils # (Auto) 0.2 x10^3/uL (0.0-0.7) Basophils # (Auto) 0.1 x10^3/uL (0.0-0.2) Sodium Level 141 mmol/L (136-145) Potassium Level 5.3 mmol/L (3.5-5.1) H Chloride Level 106 mmol/L (98-107) Carbon Dioxide Level 31 mmol/L (21-32) Anion Gap 4 (6-14) L Blood Urea Nitrogen 36 mg/dL (8-26) H Creatinine 1.4 mg/dL (0.7-1.3) H Estimated GFR (Cockcroft-Gault) 49.1 BUN/Creatinine Ratio 26 (6-20) H Glucose Level 86 mg/dL (70-99) Calcium Level 8.4 mg/dL (8.5-10.1) L Total Bilirubin 0.3 mg/dL (0.2-1.0) Aspartate Amino Transferase (AST) 26 U/L (15-37) Alanine Aminotransferase (ALT) 31 U/L (16-63) Alkaline Phosphatase 86 U/L (46-116) Total Protein 7.0 g/dL (6.4-8.2) Albumin 3.1 g/dL (3.4-5.0) L Albumin/Globulin Ratio 0.8 (1.0-1.7) L Current Medications: I have reviewed the current psychotropics carefully including drug interactions. Risk benefit ratio favors no change other than as noted in my dictated progress note. 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
--- NOTE | 2020-09-28 08:37 | PDOC ---
Exam Note: Osito Note: This note is a late entry for 09/27/2020 covers elements not covered in my initial note. Subjective: The patient was seen on telehealth rounds in the evening of 09/27/2020 with Lucia HARO as the unit is on a lockdown by the [facility] of COVID-19 exposure on the unit and no admission or discharges can be done. Discussed with nursing staff, reviewed the chart. The patient slept 7 hours previous night. He was agitated in the evening because he was not provided a lotion, specific lotion he was wanting for his skin. Review of Systems: No CV, , pulmonary, eye system symptoms on review. Gait is somewhat unsteady at times. Mental Status Exam: The patient is oriented to himself and situation. Speech is coherent, rapid at times. Abstraction is fair. Computation is impaired. Language function intact. Attention span is short. No active suicidal or homicidal ideation. Laboratory Data: Reviewed. Impression: Bipolar disorder manic with psychotic features. Anxiety disorder unspecified. Impulse control disorder unspecified. Plan: No change from initial note. Check lithium level morning of 09/28. Adjust to reach therapeutic level. Assessment: Vital Signs/I&O: Vital Signs Date Time Temp Pulse Resp B/P (MAP) Pulse Ox O2 Delivery O2 Flow Rate FiO2 09/28/20 07:40 63 118/70 09/28/20 06:32 97.3 18 94 09/27/20 06:04 Room Air I & O 09/27/20 09/27/20 09/28/20 15:00 23:00 07:00 Intake Total 600 ml 360 ml Balance 600 ml 360 ml Labs: Laboratory Tests Test 09/28/20 06:27 White Blood Count 6.9 x10^3/uL (4.0-11.0) Red Blood Count 3.81 x10^6/uL (4.30-5.70) L Hemoglobin 11.6 g/dL (13.0-17.5) L Hematocrit 37.0 % (39.0-53.0) L Mean Corpuscular Volume 97 fL (79-100) Mean Corpuscular Hemoglobin 30 pg (25-35) Mean Corpuscular Hemoglobin Concent 31 g/dL (31-37) Red Cell Distribution Width 15.7 % (11.5-14.5) H Platelet Count 165 x10^3/uL (140-400) Neutrophils (%) (Auto) 53 % (31-73) Lymphocytes (%) (Auto) 32 % (24-48) Monocytes (%) (Auto) 11 % (0-9) H Eosinophils (%) (Auto) 3 % (0-3) Basophils (%) (Auto) 1 % (0-3) Neutrophils # (Auto) 3.7 x10^3uL (1.8-7.7) Lymphocytes # (Auto) 2.2 x10^3/uL (1.0-4.8) Monocytes # (Auto) 0.7 x10^3/uL (0.0-1.1) Eosinophils # (Auto) 0.2 x10^3/uL (0.0-0.7) Basophils # (Auto) 0.1 x10^3/uL (0.0-0.2) Sodium Level 141 mmol/L (136-145) Potassium Level 5.3 mmol/L (3.5-5.1) H Chloride Level 106 mmol/L (98-107) Carbon Dioxide Level 31 mmol/L (21-32) Anion Gap 4 (6-14) L Blood Urea Nitrogen 36 mg/dL (8-26) H Creatinine 1.4 mg/dL (0.7-1.3) H Estimated GFR (Cockcroft-Gault) 49.1 BUN/Creatinine Ratio 26 (6-20) H Glucose Level 86 mg/dL (70-99) Calcium Level 8.4 mg/dL (8.5-10.1) L Total Bilirubin 0.3 mg/dL (0.2-1.0) Aspartate Amino Transferase (AST) 26 U/L (15-37) Alanine Aminotransferase (ALT) 31 U/L (16-63) Alkaline Phosphatase 86 U/L (46-116) Total Protein 7.0 g/dL (6.4-8.2) Albumin 3.1 g/dL (3.4-5.0) L Albumin/Globulin Ratio 0.8 (1.0-1.7) L Current Medications: I have reviewed the current psychotropics carefully including drug interactions. Risk benefit ratio favors no change other than as noted in my dictated progress note. 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
[2020-09-28 15:40] VITALS: BP 140/65
[2020-09-28] MEDS: ACETAMINOPHEN 325 MG TABLET PO PRN (18:33)
[2020-09-28] MEDS: PHENYLEPH/MINERAL OIL/PETROLAT RECTAL OINTMENT TUBE. RC PRN (18:33)
[2020-09-28] MEDS: MIRTAZAPINE 7.5 MG TABLET. PO SCH (19:22)
[2020-09-28] MEDS: traZODone 50 MG TABLET. PO PRN (19:22)
[2020-09-28] MEDS: ATORVASTATIN CALCIUM 20 MG TABLET PO SCH (19:23)
[2020-09-28] MEDS: DIVALPROEX ER 500 MG TAB.ER.24H PO SCH (19:23)
--- NOTE | 2020-09-28 20:55 | PDOC ---
Exam Note: Osito Note: Please also refer to the separate dictated note~for this date of service dictated separately.~Patient seen individually. Discussed the patient with Nursing staff reviewed the chart.~Reviewed interim history and current functioning. Reviewed vital signs,~Labs/ Radiology~and current medications noted below. Continue current treatment with the changes noted in the dictated addendum note Assessment: Vital Signs/I&O: Vital Signs Date Time Temp Pulse Resp B/P (MAP) Pulse Ox O2 Delivery O2 Flow Rate FiO2 09/28/20 15:40 97.6 69 16 140/65 (90) 97 Room Air I & O 09/27/20 09/27/20 09/28/20 15:00 23:00 07:00 Intake Total 600 ml 360 ml Balance 600 ml 360 ml Labs: Laboratory Tests Test 09/28/20 06:27 White Blood Count 6.9 x10^3/uL (4.0-11.0) Red Blood Count 3.81 x10^6/uL (4.30-5.70) L Hemoglobin 11.6 g/dL (13.0-17.5) L Hematocrit 37.0 % (39.0-53.0) L Mean Corpuscular Volume 97 fL (79-100) Mean Corpuscular Hemoglobin 30 pg (25-35) Mean Corpuscular Hemoglobin Concent 31 g/dL (31-37) Red Cell Distribution Width 15.7 % (11.5-14.5) H Platelet Count 165 x10^3/uL (140-400) Neutrophils (%) (Auto) 53 % (31-73) Lymphocytes (%) (Auto) 32 % (24-48) Monocytes (%) (Auto) 11 % (0-9) H Eosinophils (%) (Auto) 3 % (0-3) Basophils (%) (Auto) 1 % (0-3) Neutrophils # (Auto) 3.7 x10^3uL (1.8-7.7) Lymphocytes # (Auto) 2.2 x10^3/uL (1.0-4.8) Monocytes # (Auto) 0.7 x10^3/uL (0.0-1.1) Eosinophils # (Auto) 0.2 x10^3/uL (0.0-0.7) Basophils # (Auto) 0.1 x10^3/uL (0.0-0.2) Sodium Level 141 mmol/L (136-145) Potassium Level 5.3 mmol/L (3.5-5.1) H Chloride Level 106 mmol/L (98-107) Carbon Dioxide Level 31 mmol/L (21-32) Anion Gap 4 (6-14) L Blood Urea Nitrogen 36 mg/dL (8-26) H Creatinine 1.4 mg/dL (0.7-1.3) H Estimated GFR (Cockcroft-Gault) 49.1 BUN/Creatinine Ratio 26 (6-20) H Glucose Level 86 mg/dL (70-99) Calcium Level 8.4 mg/dL (8.5-10.1) L Total Bilirubin 0.3 mg/dL (0.2-1.0) Aspartate Amino Transferase (AST) 26 U/L (15-37) Alanine Aminotransferase (ALT) 31 U/L (16-63) Alkaline Phosphatase 86 U/L (46-116) Total Protein 7.0 g/dL (6.4-8.2) Albumin 3.1 g/dL (3.4-5.0) L Albumin/Globulin Ratio 0.8 (1.0-1.7) L [place] Level 0.7 mmol/L (0.6-1.2) [place] Last Dose Date 09/27/20 [place] Last Dose Time 2100 Current Medications: I have reviewed the current psychotropics carefully including drug interactions. Risk benefit ratio favors no change other than as noted in my dictated progress note. 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
--- NOTE | 2020-09-28 21:52 | NUR ---
Pt withdrawn to his room, sitting quietly at shift change. Pt calm and pleasant when approached, interactive but disorganized. Pt cooperative with assessment and compliant with medications administered whole. Pt currently sitting quietly at the edge of his bed.
[2020-09-29] MEDS: PHENYLEPH/MINERAL OIL/PETROLAT RECTAL OINTMENT TUBE. RC PRN (01:39)
[2020-09-29] MEDS: MAGNESIUM HYDROXIDE 2,400 MG/30 ML ORAL.SUSP. PO PRN ×2 (04:06→15:00)
[2020-09-29] MEDS: ACETAMINOPHEN 325 MG TABLET PO PRN (04:06)
--- NOTE | 2020-09-29 04:14 | NUR ---
During rounds, pt noted to be using lotion to attempt to digitally remove fecal matter from anus. At this time, I inspected pt's rectum and pt noted to have BM at rectal opening. Pt c/o feeling constipated and having hemorrhoids. MOM administered for constipation. Pt also given Tylenol for pain and Zydis for anxiety as he is tearful, singing loudly, and obsessing about having a BM. Pt was advised to lie down and let the medications take effect in an effort to relieve his constipation. Pt was agreeable and returned to his bed, but moments later was noted to be sitting on the toilet again. Staff once again encouraged him to return to bed.
[2020-09-29 06:23] VITALS: BP 152/88
[2020-09-29] MEDS: LITHIUM CARBONATE 300 MG TABLET PO SCH ×2 (07:57→19:52)
[2020-09-29] MEDS: PRIMIDONE 50 MG TABLET PO SCH ×2 (07:58→19:54)
[2020-09-29] MEDS: GABAPENTIN 300 MG CAPSULE. PO SCH ×2 (07:58→19:53)
[2020-09-29] MEDS: MEMANTINE 10 MG TABLET. PO SCH ×2 (07:58→19:53)
[2020-09-29] MEDS: amLODIPine BESYLATE 5 MG TABLET PO SCH (07:58)
[2020-09-29] MEDS: QUEtiapine 50 MG TABLET. PO SCH ×2 (07:59→19:52)
[2020-09-29] MEDS: ALLOPURINOL 100 MG TABLET. PO SCH (07:59)
[2020-09-29] MEDS ORDERED: HYDROCORTISONE ACETATE 25 MG SUPP.RECT PR PRN (09:00)
[2020-09-29 15:00] VITALS: BP 140/72
--- NOTE | 2020-09-29 18:05 | NUR ---
Pt up adl in halls. Has been obsessed with bowels today. Has been attention seeking and demanding. Pt becomes extremely agiated when he doesn't get something immediately. Pt has been redirectable most times. Has been compliant with meds and cares.
[2020-09-29] MEDS: traZODone 50 MG TABLET. PO PRN (19:53)
[2020-09-29] MEDS: MIRTAZAPINE 7.5 MG TABLET. PO SCH (19:54)
[2020-09-29] MEDS: ATORVASTATIN CALCIUM 20 MG TABLET PO SCH (19:55)
[2020-09-29] MEDS: DIVALPROEX ER 500 MG TAB.ER.24H PO SCH (19:56)
--- NOTE | 2020-09-29 21:07 | PDOC ---
Exam Note: Osito Note: Please also refer to the separate dictated note~for this date of service dictated separately.~Patient seen individually. Discussed the patient with Nursing staff reviewed the chart.~Reviewed interim history and current functioning. Reviewed vital signs,~Labs/ Radiology~and current medications noted below. Continue current treatment with the changes noted in the dictated addendum note Assessment: Vital Signs/I&O: Vital Signs Date Time Temp Pulse Resp B/P (MAP) Pulse Ox O2 Delivery O2 Flow Rate FiO2 09/29/20 15:00 97.9 78 20 140/72 (94) 97 Room Air I & O 09/28/20 09/28/20 09/29/20 15:00 23:00 07:00 Intake Total 720 ml 680 ml Balance 720 ml 680 ml Current Medications: Meds: Current Medications Medications (Trade) Dose Ordered Sig/Mackenzie Route PRN Reason Start Time Stop Time Status Last Admin Dose Admin Hydrocortisone Acetate (Anucort-Hc) 25 mg PRN BID PRN MO RECTAL PAIN 09/29/20 09:00 09/29/20 14:04 I have reviewed the current psychotropics carefully including drug interactions. Risk benefit ratio favors no change other than as noted in my dictated progress note. 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
[2020-09-29] MEDS ORDERED: BISACODYL 10 MG SUPP.RECT PR PRN (22:15)
--- NOTE | 2020-09-29 23:59 | NUR ---
Patient is in his room on assumption of care, sitting on his bed. He is disorganized, restless, anxious about his bowels. He was compliant with assessments, active bowel sounds are present. Medications taken whole with prune juice. Patient had a medium BM right before being assisted to bed, and he has appeared to be sleeping comfortably since. No agitation. No delusions voiced this shift. Will continue to monitor and report to oncoming shift.
[2020-09-30 06:05] VITALS: BP 131/58
[2020-09-30] MEDS: LITHIUM CARBONATE 300 MG TABLET PO SCH ×2 (08:17→20:16)
[2020-09-30] MEDS: GABAPENTIN 300 MG CAPSULE. PO SCH ×2 (08:17→20:14)
[2020-09-30] MEDS: amLODIPine BESYLATE 5 MG TABLET PO SCH (08:18)
[2020-09-30] MEDS: QUEtiapine 50 MG TABLET. PO SCH ×2 (08:18→20:15)
[2020-09-30] MEDS: PRIMIDONE 50 MG TABLET PO SCH ×2 (08:18→20:17)
[2020-09-30] MEDS: ALLOPURINOL 100 MG TABLET. PO SCH (08:18)
[2020-09-30] MEDS: MEMANTINE 10 MG TABLET. PO SCH ×2 (08:18→20:15)
--- NOTE | 2020-09-30 09:05 | NUR ---
Patient appears calm with breakfast. Patient complaint with medication.
[2020-09-30 16:05] VITALS: BP 98/60
[2020-09-30 20:11] VITALS: BP 96/55
[2020-09-30] MEDS: DIVALPROEX ER 500 MG TAB.ER.24H PO SCH (20:14)
[2020-09-30] MEDS: ATORVASTATIN CALCIUM 20 MG TABLET PO SCH (20:14)
[2020-09-30] MEDS: traZODone 50 MG TABLET. PO PRN (20:15)
[2020-09-30] MEDS: MIRTAZAPINE 7.5 MG TABLET. PO SCH (20:15)
--- NOTE | 2020-09-30 21:24 | PDOC ---
Exam Note: Osito Note: This note is a late entry for 09/28/2020 covers elements not covered in my initial note. Subjective: The patient was seen on telehealth rounds in the evening of 09/28/2020 with Jeanine HARO as the unit is on a lockdown by the [facility] of COVID-19 exposure on the unit with no admissions or discharges. Discussed with nursing staff, reviewed the chart. The patient slept 6 hours previous night. He has been intermittently agitated, becomes hyperverbal, manic, somewhat grandiose, other times he is a little less manic refusing to wear a face mask, walking the hallways. He has been aggressive at one point, disruptive, quite paranoid, psychotic, had to be in the [facility] hallway. We are going to be checking her lithium level morning of 09/29 and adjust to reach .therapeutic level. Review of Systems: No CV, , pulmonary, eye system symptoms on review. Mental Status Exam: The patient is oriented to himself and situation. He was quite hyperverbal, somewhat paranoid, loud, demanding, threatening, talking about discharge plans, difficult to interrupt. Speech is coherent, rapid at times. Abstraction is fair. Computation is impaired. Language function intact. Attention span is short. No active suicidal or homicidal ideation. Laboratory Data: Reviewed. Impression: Bipolar disorder manic with psychotic features. Anxiety disorder unspecified. Impulse control disorder unspecified. Plan: No change from initial note. We will maintain lithium level around less than 1.0. Continue rest of the psychotropics unchanged. Valproic acid level is therapeutic at 52. Assessment: Vital Signs/I&O: Vital Signs Date Time Temp Pulse Resp B/P (MAP) Pulse Ox O2 Delivery O2 Flow Rate FiO2 09/30/20 20:11 67 96/55 (69) 09/30/20 16:05 98.0 20 96 09/30/20 06:05 Room Air I & O 09/29/20 09/29/20 09/30/20 15:00 23:00 07:00 Intake Total 720 ml 480 ml Balance 720 ml 480 ml Labs: Laboratory Tests Test 09/30/20 10:10 [place] Level 0.7 mmol/L (0.6-1.2) [place] Last Dose Date 09/29/20 [place] Last Dose Time 2099 Current Medications: Meds: Current Medications Medications (Trade) Dose Ordered Sig/Mackenzie Route PRN Reason Start Time Stop Time Status Last Admin Dose Admin Bisacodyl (Dulcolax Supp) 10 mg PRN DAILY PRN [place] CONSTIPATION 09/29/20 22:15 09/30/20 05:23 I have reviewed the current psychotropics carefully including drug interactions. Risk benefit ratio favors no change other than as noted in my dictated progress note. 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
--- NOTE | 2020-09-30 21:35 | PDOC ---
Exam Note: Osito Note: This note is a late entry for 09/29/2020 covers elements not covered in my initial note. Subjective: The patient was seen on telehealth rounds in the evening of 09/29/2020 with Zelda HARO as the unit is on a lockdown by the [facility] of COVID-19 exposure on the unit with no admissions or discharges. Discussed with nursing staff, reviewed the chart. The patient slept 4 hours previous night. He has been quite obsessive, fixated on his bowels. He has had some constipation. Received milk of mag. We will address further symptomatically, defer to Dr. Kessler. He has been placed in an onesie because he has been digging rectally and I addressed this with him. [place] level is 0.7. We will check a lithium level every 2 days since it had crept up to 1.5 in the past. Review of Systems: Positive for constipation. No CV, , pulmonary, eye system symptoms on review. Mental Status Exam: The patient is oriented to himself and situation. He is extremely agitated, loud, paranoid, threatening again regarding discharge plans. I addressed this with him again at length. There is a little insight he shows in this respect. He was then talking about President [place], making money from [place] and various disorganized thought processes, difficult to redirect. Abstraction is fair. Computation is impaired. Language function intact. Attention span is short. No active suicidal or homicidal ideation. Laboratory Data: Reviewed. Impression: Bipolar disorder manic with psychotic features. Anxiety disorder unspecified. Impulse control disorder unspecified. Plan: No change from initial note. [place] level is 0.7. We will check a lithium level every 2 days since it had crept up to 1.5 in the past. Assessment: Vital Signs/I&O: Vital Signs Date Time Temp Pulse Resp B/P (MAP) Pulse Ox O2 Delivery O2 Flow Rate FiO2 09/30/20 20:11 67 96/55 (69) 09/30/20 16:05 98.0 20 96 09/30/20 06:05 Room Air I & O 09/29/20 09/29/20 09/30/20 15:00 23:00 07:00 Intake Total 720 ml 480 ml Balance 720 ml 480 ml Labs: Laboratory Tests Test 09/30/20 10:10 [place] Level 0.7 mmol/L (0.6-1.2) [place] Last Dose Date 09/29/20 [place] Last Dose Time 2100 Current Medications: Meds: Current Medications Medications (Trade) Dose Ordered Sig/Mackenzie Route PRN Reason Start Time Stop Time Status Last Admin Dose Admin Bisacodyl (Dulcolax Supp) 10 mg PRN DAILY PRN [place] CONSTIPATION 09/29/20 22:15 09/30/20 05:23 I have reviewed the current psychotropics carefully including drug interactions. Risk benefit ratio favors no change other than as noted in my dictated progress note. 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
--- NOTE | 2020-09-30 21:35 | PDOC ---
Exam Note: Osito Note: Please also refer to the separate dictated note~for this date of service dictated separately.~Patient seen individually. Discussed the patient with Nursing staff reviewed the chart.~Reviewed interim history and current functioning. Reviewed vital signs,~Labs/ Radiology~and current medications noted below. Continue current treatment with the changes noted in the dictated addendum note Assessment: Vital Signs/I&O: Vital Signs Date Time Temp Pulse Resp B/P (MAP) Pulse Ox O2 Delivery O2 Flow Rate FiO2 09/30/20 20:11 67 96/55 (69) 09/30/20 16:05 98.0 20 96 09/30/20 06:05 Room Air I & O 09/29/20 09/29/20 09/30/20 15:00 23:00 07:00 Intake Total 720 ml 480 ml Balance 720 ml 480 ml Labs: Laboratory Tests Test 09/30/20 10:10 [place] Level 0.7 mmol/L (0.6-1.2) [place] Last Dose Date 09/29/20 [place] Last Dose Time 2100 Current Medications: Meds: Current Medications Medications (Trade) Dose Ordered Sig/Mackenzie Route PRN Reason Start Time Stop Time Status Last Admin Dose Admin Bisacodyl (Dulcolax Supp) 10 mg PRN DAILY PRN [place] CONSTIPATION 09/29/20 22:15 09/30/20 05:23 I have reviewed the current psychotropics carefully including drug interactions. Risk benefit ratio favors no change other than as noted in my dictated progress note. 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
--- NOTE | 2020-09-30 22:58 | NUR ---
Pt incontinent of bowel and was showered this evening. After shower pt went immediately to sleep. Attempted to wake pt up for HS medication; pt extremely drowsy, weak and drooling. VS stable. HS medications held at this time. Will continue to monitor.
--- NOTE | 2020-10-01 00:01 | NUR ---
Pt awake at this time; up and down setting off his bed alarm. HS medications administered at this time.
[2020-10-01 06:02] VITALS: BP 110/57
[2020-10-01 06:35] LABS: BASO # 0.1 x10^3/uL (0.0-0.2); BASO % 1 % (0-3); EOS # 0.2 x10^3/uL (0.0-0.7); EOS % 2 % (0-3); HEMATOCRIT 35.4 % (39.0-53.0); LYMPH # 3.3 x10^3/uL (1.0-4.8); LYMPH % 29 % (24-48); MEAN CORPUSCULAR HEMOGLOBIN 30 pg (25-35); MEAN CORPUSCULAR HGB CONC 31 g/dL (31-37); MEAN CORPUSCULAR VOLUME 97 fL (79-100); MONO # 1.1 x10^3/uL (0.0-1.1); MONO % 10 % (0-9); NEUT # 6.6 x10^3uL (1.8-7.7); NEUT % 58 % (31-73); PLATELET COUNT 152 x10^3/uL (140-400); RED BLOOD COUNT 3.65 x10^6/uL (4.30-5.70); RED CELL DISTRIBUTION WIDTH 15.4 % (11.5-14.5); WHITE BLOOD COUNT 11.4 x10^3/uL (4.0-11.0)
[2020-10-01 06:39] LABS: ALBUMIN 2.8 g/dL (3.4-5.0); ALBUMIN/GLOBULIN RATIO 0.7 (1.0-1.7); CALCIUM 8.4 mg/dL (8.5-10.1); CREATININE 1.8 mg/dL (0.7-1.3); GFR 36.8; TOTAL BILIRUBIN 0.3 mg/dL (0.2-1.0); TOTAL PROTEIN 6.7 g/dL (6.4-8.2)
[2020-10-01] MEDS: LITHIUM CARBONATE 300 MG TABLET PO SCH ×2 (08:26→20:01)
[2020-10-01] MEDS: PRIMIDONE 50 MG TABLET PO SCH ×2 (08:27→20:01)
[2020-10-01] MEDS: MEMANTINE 10 MG TABLET. PO SCH ×2 (08:28→19:59)
[2020-10-01] MEDS: amLODIPine BESYLATE 5 MG TABLET PO SCH (08:28)
[2020-10-01] MEDS: GABAPENTIN 300 MG CAPSULE. PO SCH ×2 (08:28→20:00)
[2020-10-01] MEDS: QUEtiapine 50 MG TABLET. PO SCH ×2 (08:41→20:00)
[2020-10-01] MEDS: ALLOPURINOL 100 MG TABLET. PO SCH (08:42)
[2020-10-01 10:20] LABS: BACTERIA,URINE 0 /HPF (0-FEW); BILIRUBIN,URINE NEG (NEG); CLARITY,URINE CLEAR; COLOR,URINE YELLOW; GLUCOSE,URINE NEG (NEG); NITRITE,URINE NEG (NEG); RBC,URINE RARE /HPF (0-2); SQUAMOUS EPITHELIAL CELL,UR OCC /LPF; UROBILINOGEN,URINE 0.2 mg/dL (0.2 mg/dL); WBC,URINE RARE /HPF (0-4)
[2020-10-01 10:23] LABS: % BASOS 1 % (0-3); % EOS 3 % (0-5); % LYMPHS 27 % (24-48); % MONOS 8 % (0-10); % SEGS 61 % (35-66); PLT ESTIMATE ADEQUATE (ADEQUATE)
[2020-10-01 10:25] LABS: POLYCHROMASIA PRESENT; TOXIC GRANULATION PRESENT; TOXIC VACUOLATION PRESENT
--- NOTE | 2020-10-01 10:33 | NUR ---
Pt is cooperative with his medication and assessment. He wanders the unit confused and disorganized but able to follow directions. No agitation or aggression.
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
[2020-10-01 15:49] VITALS: BP 133/70
[2020-10-01] MEDS: DIVALPROEX ER 500 MG TAB.ER.24H PO SCH (19:59)
[2020-10-01] MEDS: ATORVASTATIN CALCIUM 20 MG TABLET PO SCH (19:59)
[2020-10-01] MEDS: MIRTAZAPINE 7.5 MG TABLET. PO SCH (20:04)
--- NOTE | 2020-10-01 20:56 | PDOC ---
Exam Note: Osito Note: Please also refer to the separate dictated note~for this date of service dictated separately.~Patient seen individually. Discussed the patient with Nursing staff reviewed the chart.~Reviewed interim history and current functioning. Reviewed vital signs,~Labs/ Radiology~and current medications noted below. Continue current treatment with the changes noted in the dictated addendum note Assessment: Vital Signs/I&O: Vital Signs Date Time Temp Pulse Resp B/P (MAP) Pulse Ox O2 Delivery O2 Flow Rate FiO2 10/01/20 15:49 97.3 86 16 133/70 (91) 96 09/30/20 06:05 Room Air I & O 09/30/20 09/30/20 10/01/20 15:00 23:00 07:00 Intake Total 720 ml 300 ml Balance 720 ml 300 ml Labs: Laboratory Tests Test 10/01/20 05:50 10/01/20 08:28 White Blood Count 11.4 x10^3/uL (4.0-11.0) H Red Blood Count 3.65 x10^6/uL (4.30-5.70) L Hemoglobin 11.0 g/dL (13.0-17.5) L Hematocrit 35.4 % (39.0-53.0) L Mean Corpuscular Volume 97 fL (79-100) Mean Corpuscular Hemoglobin 30 pg (25-35) Mean Corpuscular Hemoglobin Concent 31 g/dL (31-37) Red Cell Distribution Width 15.4 % (11.5-14.5) H Platelet Count 152 x10^3/uL (140-400) Neutrophils (%) (Auto) 58 % (31-73) Lymphocytes (%) (Auto) 29 % (24-48) Monocytes (%) (Auto) 10 % (0-9) H Eosinophils (%) (Auto) 2 % (0-3) Basophils (%) (Auto) 1 % (0-3) Neutrophils # (Auto) 6.6 x10^3uL (1.8-7.7) Lymphocytes # (Auto) 3.3 x10^3/uL (1.0-4.8) Monocytes # (Auto) 1.1 x10^3/uL (0.0-1.1) Eosinophils # (Auto) 0.2 x10^3/uL (0.0-0.7) Basophils # (Auto) 0.1 x10^3/uL (0.0-0.2) Segmented Neutrophils % 61 % (35-66) Lymphocytes % 27 % (24-48) Monocytes % 8 % (0-10) Eosinophils % 3 % (0-5) Basophils % 1 % (0-3) Toxic Granulation Present Toxic Vacuolation Present Platelet Estimate Adequate (ADEQUATE) Large Platelets Occ Polychromasia Present Sodium Level 143 mmol/L (136-145) Potassium Level 5.0 mmol/L (3.5-5.1) Chloride Level 108 mmol/L (98-107) H Carbon Dioxide Level 32 mmol/L (21-32) Anion Gap 3 (6-14) L Blood Urea Nitrogen 34 mg/dL (8-26) H Creatinine 1.8 mg/dL (0.7-1.3) H Estimated GFR (Cockcroft-Gault) 36.8 BUN/Creatinine Ratio 19 (6-20) Glucose Level 82 mg/dL (70-99) Calcium Level 8.4 mg/dL (8.5-10.1) L Total Bilirubin 0.3 mg/dL (0.2-1.0) Aspartate Amino Transferase (AST) 24 U/L (15-37) Alanine Aminotransferase (ALT) 26 U/L (16-63) Alkaline Phosphatase 77 U/L (46-116) Total Protein 6.7 g/dL (6.4-8.2) Albumin 2.8 g/dL (3.4-5.0) L Albumin/Globulin Ratio 0.7 (1.0-1.7) L Urine Collection Type Unknown Urine Color Yellow Urine Clarity Clear Urine pH 7.0 Urine Specific [place] 1.015 Urine Protein Neg (NEG-TRACE) Urine Glucose (UA) Neg mg/dL (NEG) Urine Ketones (Stick) Neg mg/dL (NEG) Urine Blood Neg (NEG) Urine Nitrite Neg (NEG) Urine Bilirubin Neg (NEG) Urine Urobilinogen Dipstick 0.2 mg/dL (0.2 mg/dL) Urine Leukocyte Esterase Neg (NEG) Urine RBC Rare /HPF (0-2) Urine WBC Rare /HPF (0-4) Urine Squamous Epithelial Cells Occ /LPF Urine Bacteria 0 /HPF (0-FEW) Current Medications: Meds: Current Medications Medications (Trade) Dose Ordered Sig/Mackenzie Route PRN Reason Start Time Stop Time Status Last Admin Dose Admin Quetiapine Fumarate (SEROquel) 75 mg BID PO 10/01/20 09:00 10/01/20 20:00 I have reviewed the current psychotropics carefully including drug interactions. Risk benefit ratio favors no change other than as noted in my dictated progress note. 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
--- NOTE | 2020-10-01 21:40 | NUR ---
Pt located in his room this evening. Cooperative and disorganized. Compliant with whole medications.
[2020-10-02 05:57] VITALS: BP 145/71
[2020-10-02 06:59] LABS: VAL ACID 52 mcg/mL (50-100)
[2020-10-02] MEDS: amLODIPine BESYLATE 5 MG TABLET PO SCH (07:41)
[2020-10-02] MEDS: GABAPENTIN 300 MG CAPSULE. PO SCH ×2 (07:42→19:27)
[2020-10-02] MEDS: LITHIUM CARBONATE 300 MG TABLET PO SCH ×2 (07:42→19:29)
[2020-10-02] MEDS: MEMANTINE 10 MG TABLET. PO SCH ×2 (07:42→19:27)
[2020-10-02] MEDS: ALLOPURINOL 100 MG TABLET. PO SCH (07:42)
[2020-10-02] MEDS: QUEtiapine 50 MG TABLET. PO SCH ×2 (07:42→19:30)
[2020-10-02] MEDS: PRIMIDONE 50 MG TABLET PO SCH ×2 (07:42→19:29)
--- NOTE | 2020-10-02 07:55 | PDOC ---
Exam Note: Osito Note: This note is a late entry for 09/30/2020 covers elements not covered in my initial note. Subjective: The patient was seen on telehealth rounds in the evening of 09/30/2020 with Gely HARO as the unit is on a lockdown by the [facility] of COVID-19 exposure on the unit with no admissions or discharges. Discussed with nursing staff, reviewed the chart. The patient slept 6-1/4 hours previous night. He remains somewhat hypomanic at times, hyperverbal, paranoid but less so than before. He has been obsessed about his bowel and complains of constipation. Dr. Kessler is addressing this. Review of Systems: Positive for constipation. No CV, , pulmonary, eye system symptoms on review. Mental Status Exam: The patient is oriented to himself and situation. Speech can be coherent, rapid at times. Abstraction is fair. Computation is impaired. Attention span is short. Mood and affect remains somewhat grandiose, manic, at times better than before. Language function intact. Attention span is short. No active suicidal or homicidal ideation. Laboratory Data: Reviewed. Impression: Bipolar disorder manic with psychotic features. Anxiety disorder unspecified. Impulse control disorder unspecified. Plan: No change from initial note. Seroquel is currently 50 mg b.i.d. We will increase to 75 mg b.i.d. Repeat lithium level. Follow the valproic acid level. Continue rest of the psychotropics mentioned in my initial note. Assessment: Vital Signs/I&O: Vital Signs Date Time Temp Pulse Resp B/P (MAP) Pulse Ox O2 Delivery O2 Flow Rate FiO2 10/02/20 07:41 60 145/71 10/02/20 05:57 97.7 20 96 09/30/20 06:05 Room Air I & O 10/01/20 10/01/20 10/02/20 15:00 23:00 07:00 Intake Total 840 ml 420 ml Balance 840 ml 420 ml Labs: Laboratory Tests Test 10/01/20 08:28 10/02/20 06:26 Urine Collection Type Unknown Urine Color Yellow Urine Clarity Clear Urine pH 7.0 Urine Specific [place] 1.015 Urine Protein Neg (NEG-TRACE) Urine Glucose (UA) Neg mg/dL (NEG) Urine Ketones (Stick) Neg mg/dL (NEG) Urine Blood Neg (NEG) Urine Nitrite Neg (NEG) Urine Bilirubin Neg (NEG) Urine Urobilinogen Dipstick 0.2 mg/dL (0.2 mg/dL) Urine Leukocyte Esterase Neg (NEG) Urine RBC Rare /HPF (0-2) Urine WBC Rare /HPF (0-4) Urine Squamous Epithelial Cells Occ /LPF Urine Bacteria 0 /HPF (0-FEW) Valproic Acid Level 52 mcg/mL (50-100) Valproic Acid Last Dose Date 10/01/20 Valproic Acid Last Dose Time 2100 Current Medications: Meds: Current Medications Medications (Trade) Dose Ordered Sig/Mackenzie Route PRN Reason Start Time Stop Time Status Last Admin Dose Admin Quetiapine Fumarate (SEROquel) 75 mg BID PO 10/01/20 09:00 10/02/20 07:42 I have reviewed the current psychotropics carefully including drug interactions. Risk benefit ratio favors no change other than as noted in my dictated progress note. 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
--- NOTE | 2020-10-02 08:09 | PDOC ---
Exam Note: Osito Note: This note is a late entry for 10/01/2020 covers elements not covered in my initial note. Subjective: The patient was seen on telehealth rounds in the morning of 10/01/2020 for treatment team meeting with Marlene (nephrology social worker), Yamilex, activity therapy, and Vivien HARO as the unit is on a lockdown by the [facility] of COVID-19 exposure on the unit with no admissions or discharges. Discussed with nursing staff, reviewed the chart. The patient slept 7-1/4 hours previous night. Appetite has been 75%. Sleeping average 5- 1/2 hours. WBC is 11.4, BUN and creatinine is somewhat elevated. UA has been repeated, rule out UTI and we will defer the mild leukocytosis to Dr. Kessler though the lithium could contribute to this as well. He did attend one group on Thursday. In the evening also discussed the patient with Gely HARO. He was quite drowsy previous night with slurred speech and his psychotropics were held. He woke up around midnight. He did take his medications after midnight. He is still obsessed about his bowel. UA is negative. Graham and valproic acid level will be repeated in the morning. Review of Systems: Positive for GI complaints. No CV, , pulmonary, eye system symptoms on review. Mental Status Exam: The patient is oriented to himself and situation. He remains somewhat hyperverbal, paranoid, but less manic than before, still obsessed about discharge as well and sedated in the evening and observations are incorporated from nursing staff. Speech is coherent, a little pressured at times. Abstraction is fair. Computation is impaired. Language function intact. Attention span is short. No suicidal or homicidal ideation. Laboratory Data: Reviewed. Impression: Bipolar disorder manic with psychotic features. Anxiety disorder unspecified. Impulse control disorder unspecified. Plan: No change from initial note. Graham and valproic acid level will be repeated in the morning. Adjust thereafter. Assessment: Vital Signs/I&O: Vital Signs Date Time Temp Pulse Resp B/P (MAP) Pulse Ox O2 Delivery O2 Flow Rate FiO2 10/02/20 07:41 60 145/71 10/02/20 05:57 97.7 20 96 09/30/20 06:05 Room Air I & O 1210/01/20 10/02/20 15:00 23:00 07:00 Intake Total 840 ml 420 ml Balance 840 ml 420 ml Labs: Laboratory Tests Test 10/01/20 08:28 10/02/20 06:26 Urine Collection Type Unknown Urine Color Yellow Urine Clarity Clear Urine pH 7.0 Urine Specific [place] 1.015 Urine Protein Neg (NEG-TRACE) Urine Glucose (UA) Neg mg/dL (NEG) Urine Ketones (Stick) Neg mg/dL (NEG) Urine Blood Neg (NEG) Urine Nitrite Neg (NEG) Urine Bilirubin Neg (NEG) Urine Urobilinogen Dipstick 0.2 mg/dL (0.2 mg/dL) Urine Leukocyte Esterase Neg (NEG) Urine RBC Rare /HPF (0-2) Urine WBC Rare /HPF (0-4) Urine Squamous Epithelial Cells Occ /LPF Urine Bacteria 0 /HPF (0-FEW) Valproic Acid Level 52 mcg/mL (50-100) Valproic Acid Last Dose Date 10/01/20 Valproic Acid Last Dose Time 2100 Current Medications: Meds: Current Medications Medications (Trade) Dose Ordered Sig/Mackenzie Route PRN Reason Start Time Stop Time Status Last Admin Dose Admin Quetiapine Fumarate (SEROquel) 75 mg BID PO 10/01/20 09:00 10/02/20 07:42 I have reviewed the current psychotropics carefully including drug interactions. Risk benefit ratio favors no change other than as noted in my dictated progress note. 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
--- NOTE | 2020-10-02 10:37 | NUR ---
Nursing note: Pt in secure hallway for AM meds and assessment. He was pleasant, med compliant and cooperative. Pt had no complaints at time of assessment. He later became agitated when he needed to go to the bathroom and could not get his onesie down on his own, but did not ask anyone for help. Pt was assisted and was taken out of the onesie and regular pants were put on. He is currently sitting quietly in his room. Will continue to monitor.
[2020-10-02 15:46] VITALS: BP 149/74
[2020-10-02] MEDS: DIVALPROEX ER 500 MG TAB.ER.24H PO SCH (19:27)
[2020-10-02] MEDS: MIRTAZAPINE 7.5 MG TABLET. PO SCH (19:27)
[2020-10-02] MEDS: ATORVASTATIN CALCIUM 20 MG TABLET PO SCH (19:30)
--- NOTE | 2020-10-02 21:02 | PDOC ---
Exam Note: Osito Note: Please also refer to the separate dictated note~for this date of service dictated separately.~Patient seen individually. Discussed the patient with Nursing staff reviewed the chart.~Reviewed interim history and current functioning. Reviewed vital signs,~Labs/ Radiology~and current medications noted below. Continue current treatment with the changes noted in the dictated addendum note Assessment: Vital Signs/I&O: Vital Signs Date Time Temp Pulse Resp B/P (MAP) Pulse Ox O2 Delivery O2 Flow Rate FiO2 10/02/20 15:46 97.7 76 18 149/74 (99) 95 09/30/20 06:05 Room Air I & O 10/01/20 10/01/20 10/02/20 15:00 23:00 07:00 Intake Total 840 ml 420 ml Balance 840 ml 420 ml Labs: Laboratory Tests Test 10/02/20 06:26 Valproic Acid Level 52 mcg/mL (50-100) Valproic Acid Last Dose Date 10/01/20 Valproic Acid Last Dose Time 2100 [place] Level 0.8 mmol/L (0.6-1.2) [place] Last Dose Date 10/01/20 [place] Last Dose Time 2100 Current Medications: I have reviewed the current psychotropics carefully including drug interactions. Risk benefit ratio favors no change other than as noted in my dictated progress note. 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
--- NOTE | 2020-10-03 03:08 | NUR ---
Nursing Note the patient was calm and cooperative this shift. The patient was interactive and appropriate with this nurse during his assessment and took his medications whole. The patient wandered through the hallways talking pleasantly with peers while awake this shift.
[2020-10-03 05:53] VITALS: BP 169/73
[2020-10-03] MEDS: LITHIUM CARBONATE 300 MG TABLET PO SCH ×2 (07:40→20:03)
[2020-10-03] MEDS: QUEtiapine 50 MG TABLET. PO SCH ×2 (07:40→20:04)
[2020-10-03] MEDS: amLODIPine BESYLATE 5 MG TABLET PO SCH (07:40)
[2020-10-03] MEDS: MEMANTINE 10 MG TABLET. PO SCH ×2 (07:40→20:03)
[2020-10-03] MEDS: PRIMIDONE 50 MG TABLET PO SCH ×2 (07:40→20:04)
[2020-10-03] MEDS: ALLOPURINOL 100 MG TABLET. PO SCH (07:41)
[2020-10-03] MEDS: GABAPENTIN 300 MG CAPSULE. PO SCH ×2 (07:42→20:04)
--- NOTE | 2020-10-03 11:06 | NUR ---
Nursing note: Pt in his room at AM med pass and assessment. He is pleasant, med compliant and cooperative. He denies having any pain or discomfort. Pt occasionally comes out of his room to walk around the unit and socialize with other peers. He is currently resting quietly in his room. Will continue to monitor.
--- NOTE | 2020-10-03 15:08 | NUR ---
JUAN FRANCISCO spoke with mUa at [facility] to discuss potential d/c date of 10/10/20. Uma requested to be contacted closer to d/c to discuss transportation.
[2020-10-03 15:45] VITALS: BP 129/72
[2020-10-03] MEDS: ATORVASTATIN CALCIUM 20 MG TABLET PO SCH (20:03)
[2020-10-03] MEDS: MIRTAZAPINE 7.5 MG TABLET. PO SCH (20:03)
[2020-10-03] MEDS: DIVALPROEX ER 500 MG TAB.ER.24H PO SCH (20:05)
--- NOTE | 2020-10-03 20:51 | PDOC ---
Exam Note: Osito Note: Please also refer to the separate dictated note~for this date of service dictated separately.~Patient seen individually. Discussed the patient with Nursing staff reviewed the chart.~Reviewed interim history and current functioning. Reviewed vital signs,~Labs/ Radiology~and current medications noted below. Continue current treatment with the changes noted in the dictated addendum note Assessment: Vital Signs/I&O: Vital Signs Date Time Temp Pulse Resp B/P (MAP) Pulse Ox O2 Delivery O2 Flow Rate FiO2 10/03/20 15:45 98.6 59 16 129/72 (91) 99 09/30/20 06:05 Room Air I & O 10/02/20 10/02/20 10/03/20 15:00 23:00 07:00 Intake Total 840 ml 540 ml Balance 840 ml 540 ml Current Medications: I have reviewed the current psychotropics carefully including drug interactions. Risk benefit ratio favors no change other than as noted in my dictated progress note. 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
--- NOTE | 2020-10-04 01:29 | NUR ---
Nursing Note The patient was calm and cooperative this shift. The patient took his medication whole. The patient wandered the hallways and was interactive with peers and staff. The patient was appropriate during his assessment.
[2020-10-04 06:06] VITALS: BP 119/68
--- NOTE | 2020-10-04 08:07 | PDOC ---
Exam Note: Osito Note: This note is a late entry for 10/02/2020 covers elements not covered in my initial note. Subjective: The patient was seen on telehealth rounds in the evening of 10/02/2020 with Jeanine HARO as the unit is on a lockdown by the [facility] of COVID-19 exposure on the unit with no admission or discharges can be done until 10/07/20. Discussed with nursing staff, reviewed the chart. The patient slept 6 hours previous night. He was up at 4.30 a.m. wandering, confused. He had to be in the quiet hallway, urinated twice in the hallway. He had to be placed in onesie that he resents. Valproic acid level 52. [place] 0.8. Review of Systems: Patient is somewhat hard of hearing. No CV, , pulmonary, eye system symptoms on review. He is generally less agitated, less manic, less threatening, less psychotic. Mental Status Exam: The patient is oriented to himself and situation. Speech has some latency, coherent. Abstraction is fair. Computation is impaired. Language function intact. Attention span is short. No suicidal or homicidal ideation. Laboratory Data: Reviewed. Impression: Bipolar disorder manic with psychotic features. Anxiety disorder unspecified. Impulse control disorder unspecified. Plan: No change from initial note. Assessment: Vital Signs/I&O: Vital Signs Date Time Temp Pulse Resp B/P (MAP) Pulse Ox O2 Delivery O2 Flow Rate FiO2 10/04/20 06:06 97.7 56 20 119/68 (85) 98 09/30/20 06:05 Room Air I & O 10/03/20 10/03/20 10/04/20 15:00 23:00 07:00 Intake Total 1080 ml 480 ml Balance 1080 ml 480 ml Current Medications: I have reviewed the current psychotropics carefully including drug interactions. Risk benefit ratio favors no change other than as noted in my dictated progress note. 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
--- NOTE | 2020-10-04 08:17 | PDOC ---
Exam Note: Osito Note: This note is a late entry for 10/03/2020 covers elements not covered in my initial note. Subjective: The patient was seen on telehealth rounds in the evening of 10/03/2020 with Jeanine HARO as the unit is on a lockdown by the [facility] of COVID-19 exposure on the unit with no admission or discharges can be done. Discussed with nursing staff, reviewed the chart. The patient slept 7 hours previous night. Review of Systems: Positive for GI complaints. No CV, , pulmonary, eye system symptoms on review. Mental Status Exam: The patient is oriented to himself and situation. He is much more appropriate during the individual visit, less irritable, less paranoid, needed assistance with hearing. Speech is coherent. Abstraction is fair. Computation is impaired. Language function intact. Attention span is short. No suicidal or homicidal ideation. Laboratory Data: Reviewed. Impression: Bipolar disorder manic with psychotic features. Anxiety disorder unspecified. Impulse control disorder unspecified. Plan: No change from initial note. Assessment: Vital Signs/I&O: Vital Signs Date Time Temp Pulse Resp B/P (MAP) Pulse Ox O2 Delivery O2 Flow Rate FiO2 10/04/20 06:06 97.7 56 20 119/68 (85) 98 09/30/20 06:05 Room Air I & O 10/03/20 10/03/20 10/04/20 14:59 22:59 06:59 Intake Total 1080 ml 480 ml Balance 1080 ml 480 ml Current Medications: I have reviewed the current psychotropics carefully including drug interactions. Risk benefit ratio favors no change other than as noted in my dictated progress note. 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
[2020-10-04] MEDS: QUEtiapine 50 MG TABLET. PO SCH ×2 (08:48→19:44)
[2020-10-04] MEDS: ALLOPURINOL 100 MG TABLET. PO SCH (08:48)
[2020-10-04] MEDS: amLODIPine BESYLATE 5 MG TABLET PO SCH (08:48)
[2020-10-04] MEDS: LITHIUM CARBONATE 300 MG TABLET PO SCH ×2 (08:48→19:51)
[2020-10-04] MEDS: MEMANTINE 10 MG TABLET. PO SCH ×2 (08:48→19:50)
[2020-10-04] MEDS: PRIMIDONE 50 MG TABLET PO SCH ×2 (08:48→19:48)
[2020-10-04] MEDS: GABAPENTIN 300 MG CAPSULE. PO SCH ×2 (08:49→19:50)
--- NOTE | 2020-10-04 10:35 | NUR ---
Patient in hallway and taken to his room for assessment. Patient is calm and cooperative and takes medications fine. Patient has no complaints this AM. No further concerns at this time.
[2020-10-04 15:40] VITALS: BP 154/75
[2020-10-04] MEDS: ATORVASTATIN CALCIUM 20 MG TABLET PO SCH (19:44)
[2020-10-04] MEDS: MIRTAZAPINE 7.5 MG TABLET. PO SCH (19:44)
[2020-10-04] MEDS: DIVALPROEX ER 500 MG TAB.ER.24H PO SCH (19:45)
[2020-10-04] MEDS: traZODone 50 MG TABLET. PO PRN (19:45)
--- NOTE | 2020-10-04 20:56 | PDOC ---
Exam Note: Osito Note: Please also refer to the separate dictated note~for this date of service dictated separately.~Patient seen individually. Discussed the patient with Nursing staff reviewed the chart.~Reviewed interim history and current functioning. Reviewed vital signs,~Labs/ Radiology~and current medications noted below. Continue current treatment with the changes noted in the dictated addendum note Assessment: Vital Signs/I&O: Vital Signs Date Time Temp Pulse Resp B/P (MAP) Pulse Ox O2 Delivery O2 Flow Rate FiO2 10/04/20 15:40 97.9 63 16 154/75 (101) 99 09/30/20 06:05 Room Air I & O 10/03/20 10/03/20 10/04/20 15:00 23:00 07:00 Intake Total 1080 ml 480 ml Balance 1080 ml 480 ml Labs: Laboratory Tests Test 10/04/20 05:43 [place] Level 0.6 mmol/L (0.6-1.2) [place] Last Dose Date Unk [place] Last Dose Time Unk Current Medications: I have reviewed the current psychotropics carefully including drug interactions. Risk benefit ratio favors no change other than as noted in my dictated progress note. 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
--- NOTE | 2020-10-05 02:25 | NUR ---
Nursing Note The patient was calm and interactive this shift. The patient was appropriate during interactions with this nurse and took his medication whole. The patient discussed his past travels to [place] with this nurse.
[2020-10-05 05:53] VITALS: BP 131/72
[2020-10-05] MEDS: QUEtiapine 50 MG TABLET. PO SCH ×2 (07:52→19:59)
[2020-10-05] MEDS: PRIMIDONE 50 MG TABLET PO SCH ×2 (07:53→20:02)
[2020-10-05] MEDS: ALLOPURINOL 100 MG TABLET. PO SCH (07:53)
[2020-10-05] MEDS: MEMANTINE 10 MG TABLET. PO SCH ×2 (07:53→20:01)
[2020-10-05] MEDS: LITHIUM CARBONATE 300 MG TABLET PO SCH ×2 (07:53→19:58)
[2020-10-05] MEDS: GABAPENTIN 300 MG CAPSULE. PO SCH ×2 (07:53→20:04)
[2020-10-05] MEDS: amLODIPine BESYLATE 5 MG TABLET PO SCH (07:54)
--- NOTE | 2020-10-05 11:32 | NUR ---
Patient calm and cooperative at time of assessment. Sitting in room eating breakfast in chair. Patient has no complaints of pain and no concerns. Patient alert and oriented. Confused at times. No further concerns at this time.
[2020-10-05] MEDS ORDERED: DIVA500T4 PO (11:34)
[2020-10-05] MEDS ORDERED: MIRT7.5T8 PO (11:35)
[2020-10-05] MEDS ORDERED: BISA10SU4 RC (11:37)
[2020-10-05] MEDS ORDERED: HYDR25SU4 RC (11:37)
[2020-10-05] MEDS ORDERED: QUET50TA5 PO (11:43)
[2020-10-05] MEDS ORDERED: TRAZ-120 PO (11:47)
[2020-10-05] MEDS ORDERED: MAG-95 PO (11:49)
[2020-10-05] MEDS ORDERED: METH57CR17 TP (11:49)
[2020-10-05 15:24] VITALS: BP 127/75
[2020-10-05] MEDS: DIVALPROEX ER 500 MG TAB.ER.24H PO SCH (20:00)
[2020-10-05] MEDS: ATORVASTATIN CALCIUM 20 MG TABLET PO SCH (20:01)
[2020-10-05] MEDS: traZODone 50 MG TABLET. PO PRN (20:04)
[2020-10-05] MEDS: MIRTAZAPINE 7.5 MG TABLET. PO SCH (20:04)
--- NOTE | 2020-10-05 20:52 | PDOC ---
Exam Note: Osito Note: Please also refer to the separate dictated note~for this date of service dictated separately.~Patient seen individually. Discussed the patient with Nursing staff reviewed the chart.~Reviewed interim history and current functioning. Reviewed vital signs,~Labs/ Radiology~and current medications noted below. Continue current treatment with the changes noted in the dictated addendum note Assessment: Vital Signs/I&O: Vital Signs Date Time Temp Pulse Resp B/P (MAP) Pulse Ox O2 Delivery O2 Flow Rate FiO2 10/05/20 15:24 97.9 62 18 127/75 (92) 98 Room Air I & O 10/04/20 10/04/20 10/05/20 15:00 23:00 07:00 Intake Total 600 ml 240 ml 800 ml Balance 600 ml 240 ml 800 ml Current Medications: I have reviewed the current psychotropics carefully including drug interactions. Risk benefit ratio favors no change other than as noted in my dictated progress note. 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
--- NOTE | 2020-10-05 23:59 | NUR ---
Patient is in his room on assumption of care, sitting on his bed. Calm, cooperative and compliant with assessments and medications taken whole. No agitation. No delusions voiced this shift. Patient denies any pain or discomfort. He appears to be sleeping comfortably at present time. Will continue to monitor.
[2020-10-06 05:58] VITALS: BP 133/73
[2020-10-06] MEDS: MEMANTINE 10 MG TABLET. PO SCH ×2 (08:27→20:49)
[2020-10-06] MEDS: PRIMIDONE 50 MG TABLET PO SCH ×2 (08:27→20:50)
[2020-10-06] MEDS: GABAPENTIN 300 MG CAPSULE. PO SCH ×2 (08:27→20:51)
[2020-10-06] MEDS: amLODIPine BESYLATE 5 MG TABLET PO SCH (08:28)
[2020-10-06] MEDS: LITHIUM CARBONATE 300 MG TABLET PO SCH ×2 (08:28→20:47)
[2020-10-06] MEDS: ALLOPURINOL 100 MG TABLET. PO SCH (08:30)
[2020-10-06] MEDS: QUEtiapine 50 MG TABLET. PO SCH ×2 (08:31→20:50)
[2020-10-06 16:02] VITALS: BP 121/68
--- NOTE | 2020-10-06 17:23 | NUR ---
Pt has been drowsy intermittently today. Has been pleasant. Has been compliant with meds and cares. Pt spoke with son and dtr on phone today. Visit went well.
[2020-10-06] MEDS: ATORVASTATIN CALCIUM 20 MG TABLET PO SCH (20:48)
[2020-10-06] MEDS: DIVALPROEX ER 500 MG TAB.ER.24H PO SCH (20:48)
[2020-10-06] MEDS: MIRTAZAPINE 7.5 MG TABLET. PO SCH (20:49)
[2020-10-06] MEDS: traZODone 50 MG TABLET. PO PRN (20:51)
--- NOTE | 2020-10-06 22:16 | NUR ---
Patient is in his room on assumption of care, sitting on his bed. Calm, cooperative and compliant with assessments and medications taken whole. No agitation. No delusions voiced this shift. He expressed excitement about his upcoming discharge. Patient denies any pain or discomfort. He appears to be sleeping comfortably at present time. Will continue to monitor.
[2020-10-07 05:54] VITALS: BP 137/65
[2020-10-07] MEDS: MEMANTINE 10 MG TABLET. PO SCH ×2 (07:48→19:47)
[2020-10-07] MEDS: ALLOPURINOL 100 MG TABLET. PO SCH (07:49)
[2020-10-07] MEDS: LITHIUM CARBONATE 300 MG TABLET PO SCH ×2 (07:49→19:43)
[2020-10-07] MEDS: QUEtiapine 50 MG TABLET. PO SCH ×2 (07:49→19:43)
[2020-10-07] MEDS: PRIMIDONE 50 MG TABLET PO SCH ×2 (07:50→19:47)
[2020-10-07] MEDS: amLODIPine BESYLATE 5 MG TABLET PO SCH (07:51)
[2020-10-07] MEDS: GABAPENTIN 300 MG CAPSULE. PO SCH ×2 (07:51→19:46)
--- NOTE | 2020-10-07 11:01 | PDOC ---
Exam Note: Osito Note: This note is a late entry for 10/04/2020 covers elements not covered in my initial note. Subjective: The patient was reviewed on telehealth rounds in the morning of 10/04/2020 for treatment team meeting with Carolyn New and Verónica (7th grade social studies teacher), Ally, activity therapy, and Shon RN as the unit is on a lockdown by the [facility] of COVID-19 exposure on the unit with no admissions or discharges. Discussed with nursing staff, reviewed the chart. The patient slept 4 hours previous night. He has been wandering, has not been wearing a mask when he goes out in the hallway but does redirect. He is less hyperverbal, less manic, less grandiose and less irritable. Review of Systems: He is somewhat hard of hearing. No CV, , pulmonary, eye system symptoms on review. Mental Status Exam: The patient is oriented to himself and situation. He is less manic and grandiose. He is somewhat inattentive. Speech is coherent. Abstraction is fair. Computation is impaired. Language function intact. Attention span is short. No active suicidal or homicidal ideation. Laboratory Data: Reviewed. Impression: Bipolar disorder manic with psychotic features. Anxiety disorder unspecified. Impulse control disorder unspecified. Plan: The patients valproic acid level is therapeutic at 52. [place] level 0.8 and we will continue to repeat lithium level every 2 days. Assessment: Vital Signs/I&O: Vital Signs Date Time Temp Pulse Resp B/P (MAP) Pulse Ox O2 Delivery O2 Flow Rate FiO2 10/07/20 07:51 56 137/65 10/07/20 05:54 97.5 16 97 10/06/20 05:58 Room Air I & O 10/06/20 10/07/20 10/07/20 16:00 00:00 08:00 Intake Total 740 ml 480 ml Balance 740 ml 480 ml Current Medications: I have reviewed the current psychotropics carefully including drug interactions. Risk benefit ratio favors no change other than as noted in my dictated progress note. 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
[2020-10-07 15:46] VITALS: BP 140/82
--- NOTE | 2020-10-07 16:38 | NUR ---
Pt up adl in halls and up for meals. Mask in place. Has been very pleasant and compliant with meds and cares.
[2020-10-07] MEDS: DIVALPROEX ER 500 MG TAB.ER.24H PO SCH (19:45)
[2020-10-07] MEDS: MIRTAZAPINE 7.5 MG TABLET. PO SCH (19:46)
[2020-10-07] MEDS: traZODone 50 MG TABLET. PO PRN (19:46)
[2020-10-07] MEDS: ATORVASTATIN CALCIUM 20 MG TABLET PO SCH (19:48)
--- NOTE | 2020-10-07 21:16 | PDOC ---
Exam Note: Osito Note: This note is a late entry for 10/05/2020 covers elements not covered in my initial note. Subjective: The patient was reviewed on telehealth rounds in the evening of 10/05/2020 with Zelda HARO. The [facility] has opened up the unit for admission and discharges following quarantine for Covid-19 exposure. Discussed with nursing staff, reviewed the chart. The patient slept 7 hours previous night. He appeared somewhat depressed at times, weepy, talking about parents but did redirect. Review of Systems: The patient remains somewhat hard of hearing but no CV, , pulmonary, eye system symptoms on review. Mental Status Exam: The patient is oriented to himself and situation. He was sedated in the evening per nursing report. He was less manic, grandiose, less irritable, less paranoid, more redirectable. Attention span is somewhat short. Speech is coherent. Abstraction is fair. Computation is impaired. Language function intact. Attention span is short. No active suicidal or homicidal ideation. Laboratory Data: Reviewed. Impression: Bipolar disorder manic with psychotic features. Anxiety disorder unspecified. Impulse control disorder unspecified. Plan: No change from initial note. We will continue to monitor his lithium level and make sure he does not become toxic once again. Assessment: Vital Signs/I&O: Vital Signs Date Time Temp Pulse Resp B/P (MAP) Pulse Ox O2 Delivery O2 Flow Rate FiO2 10/07/20 15:46 98.0 65 18 140/82 (101) 100 10/06/20 05:58 Room Air I & O 10/06/20 10/06/20 10/07/20 14:59 22:59 06:59 Intake Total 740 ml 480 ml Balance 740 ml 480 ml Current Medications: I have reviewed the current psychotropics carefully including drug interactions. Risk benefit ratio favors no change other than as noted in my dictated progress note. 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
--- NOTE | 2020-10-07 21:58 | PDOC ---
Exam Note: Osito Note: Please also refer to the separate dictated note~for this date of service dictated separately.~Patient seen individually. Discussed the patient with Nursing staff reviewed the chart.~Reviewed interim history and current functioning. Reviewed vital signs,~Labs/ Radiology~and current medications noted below. Continue current treatment with the changes noted in the dictated addendum note Assessment: Vital Signs/I&O: Vital Signs Date Time Temp Pulse Resp B/P (MAP) Pulse Ox O2 Delivery O2 Flow Rate FiO2 10/07/20 15:46 98.0 65 18 140/82 (101) 100 10/06/20 05:58 Room Air I & O 10/06/20 10/06/20 10/07/20 15:00 23:00 07:00 Intake Total 740 ml 480 ml Balance 740 ml 480 ml Current Medications: I have reviewed the current psychotropics carefully including drug interactions. Risk benefit ratio favors no change other than as noted in my dictated progress note. 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
[2020-10-08 05:53] LABS: BASO # 0.1 x10^3/uL (0.0-0.2); BASO % 1 % (0-3); EOS # 0.3 x10^3/uL (0.0-0.7); EOS % 3 % (0-3); HEMATOCRIT 37.4 % (39.0-53.0); HEMOGLOBIN 11.6 g/dL (13.0-17.5); LYMPH # 2.2 x10^3/uL (1.0-4.8); LYMPH % 24 % (24-48); MEAN CORPUSCULAR HEMOGLOBIN 30 pg (25-35); MEAN CORPUSCULAR HGB CONC 31 g/dL (31-37); MEAN CORPUSCULAR VOLUME 97 fL (79-100); MONO # 0.9 x10^3/uL (0.0-1.1); MONO % 10 % (0-9); NEUT # 5.7 x10^3uL (1.8-7.7); NEUT % 62 % (31-73); PLATELET COUNT 183 x10^3/uL (140-400); RED BLOOD COUNT 3.84 x10^6/uL (4.30-5.70); RED CELL DISTRIBUTION WIDTH 15.1 % (11.5-14.5); WHITE BLOOD COUNT 9.2 x10^3/uL (4.0-11.0)
[2020-10-08 06:03] VITALS: BP 145/82
[2020-10-08 06:11] LABS: ALBUMIN 2.9 g/dL (3.4-5.0); ALBUMIN/GLOBULIN RATIO 0.7 (1.0-1.7); CALCIUM 8.3 mg/dL (8.5-10.1); CREATININE 1.5 mg/dL (0.7-1.3); GFR 45.4; POTASSIUM 5.5 mmol/L (3.5-5.1); TOTAL BILIRUBIN 0.2 mg/dL (0.2-1.0)
--- NOTE | 2020-10-08 08:02 | PDOC ---
Exam Note: Osito Note: This note is a late entry for 10/06/2020 covers elements not covered in my initial note. Subjective: The patient was reviewed on telehealth rounds in the evening of 10/06/2020 with Pam HARO. The Health Department has opened up the unit for admission and discharges following quarantine for Covid-19 exposure. Discussed with nursing staff, reviewed the chart. The patient slept 6 hours previous night. He has been somewhat sleepy during the day but less manic, less agitated, and less paranoid. Mood lability and crying spells are improved. [place] level is 0.7. Review of Systems: No CV, , pulmonary, eye system symptoms on review. Mental Status Exam: The patient is oriented to himself and situation. He is much more pleasant, cooperative with improved mood lability during individual telehealth visit. Speech is coherent. Abstraction is fair. Computation is impaired. Language function intact. Attention span is short. No active suicidal or homicidal ideation. Laboratory Data: Reviewed. Impression: Bipolar disorder manic with psychotic features. Anxiety disorder unspecified. Impulse control disorder unspecified. Plan: No change from initial note. Tentative transition to fdc this coming week as the COVID-19 restrictions are being lifted by the Health Department. Assessment: Vital Signs/I&O: Vital Signs Date Time Temp Pulse Resp B/P (MAP) Pulse Ox O2 Delivery O2 Flow Rate FiO2 10/08/20 06:03 97.9 54 18 145/82 (103) 98 Room Air I & O 10/07/20 10/07/20 10/08/20 14:59 22:59 06:59 Intake Total 360 ml 480 ml Balance 360 ml 480 ml Labs: Laboratory Tests Test 10/08/20 05:36 White Blood Count 9.2 x10^3/uL (4.0-11.0) Red Blood Count 3.84 x10^6/uL (4.30-5.70) L Hemoglobin 11.6 g/dL (13.0-17.5) L Hematocrit 37.4 % (39.0-53.0) L Mean Corpuscular Volume 97 fL (79-100) Mean Corpuscular Hemoglobin 30 pg (25-35) Mean Corpuscular Hemoglobin Concent 31 g/dL (31-37) Red Cell Distribution Width 15.1 % (11.5-14.5) H Platelet Count 183 x10^3/uL (140-400) Neutrophils (%) (Auto) 62 % (31-73) Lymphocytes (%) (Auto) 24 % (24-48) Monocytes (%) (Auto) 10 % (0-9) H Eosinophils (%) (Auto) 3 % (0-3) Basophils (%) (Auto) 1 % (0-3) Neutrophils # (Auto) 5.7 x10^3uL (1.8-7.7) Lymphocytes # (Auto) 2.2 x10^3/uL (1.0-4.8) Monocytes # (Auto) 0.9 x10^3/uL (0.0-1.1) Eosinophils # (Auto) 0.3 x10^3/uL (0.0-0.7) Basophils # (Auto) 0.1 x10^3/uL (0.0-0.2) Sodium Level 140 mmol/L (136-145) Potassium Level 5.5 mmol/L (3.5-5.1) H Chloride Level 106 mmol/L (98-107) Carbon Dioxide Level 30 mmol/L (21-32) Anion Gap 4 (6-14) L Blood Urea Nitrogen 29 mg/dL (8-26) H Creatinine 1.5 mg/dL (0.7-1.3) H Estimated GFR (Cockcroft-Gault) 45.4 BUN/Creatinine Ratio 19 (6-20) Glucose Level 84 mg/dL (70-99) Calcium Level 8.3 mg/dL (8.5-10.1) L Total Bilirubin 0.2 mg/dL (0.2-1.0) Aspartate Amino Transferase (AST) 31 U/L (15-37) Alanine Aminotransferase (ALT) 35 U/L (16-63) Alkaline Phosphatase 79 U/L (46-116) Total Protein 7.0 g/dL (6.4-8.2) Albumin 2.9 g/dL (3.4-5.0) L Albumin/Globulin Ratio 0.7 (1.0-1.7) L Current Medications: I have reviewed the current psychotropics carefully including drug interactions. Risk benefit ratio favors no change other than as noted in my dictated progress note. 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
--- NOTE | 2020-10-08 08:16 | PDOC ---
Exam Note: Osito Note: This note is a late entry for 10/07/2020 covers elements not covered in my initial note. Subjective: The patient was reviewed on telehealth rounds in the evening of 10/07/2020 with Pam HARO. The Health Department has opened up the unit for admission and discharges following quarantine for Covid-19 exposure. Discussed with nursing staff, reviewed the chart. The patient slept 7-1/2 hours previous night. He has been fairly cooperative on the unit, less labile in his mood, less paranoid, less manic and grandiose, less threatening. Review of Systems: The patient remains hard of hearing. No CV, , pulmonary, eye system symptoms on review. Mental Status Exam: The patient is oriented to himself and situation. He is less paranoid, less grandiose, remains fairly cooperative. Attention span is somewhat short. Speech is coherent. Abstraction is fair. Computation is impaired. Language function intact. Attention span is short. No active suicidal or homicidal ideation. Laboratory Data: Reviewed. Impression: Bipolar disorder manic with psychotic features. Anxiety disorder unspecified. Impulse control disorder unspecified. Plan: No change from initial note. Tentative transition to long-term this coming week as the COVID-19 restrictions are being lifted by the Health Department. Assessment: Vital Signs/I&O: Vital Signs Date Time Temp Pulse Resp B/P (MAP) Pulse Ox O2 Delivery O2 Flow Rate FiO2 10/08/20 06:03 97.9 54 18 145/82 (103) 98 Room Air I & O 10/07/20 10/07/20 10/08/20 15:00 23:00 07:00 Intake Total 360 ml 480 ml Balance 360 ml 480 ml Labs: Laboratory Tests Test 10/08/20 05:36 White Blood Count 9.2 x10^3/uL (4.0-11.0) Red Blood Count 3.84 x10^6/uL (4.30-5.70) L Hemoglobin 11.6 g/dL (13.0-17.5) L Hematocrit 37.4 % (39.0-53.0) L Mean Corpuscular Volume 97 fL (79-100) Mean Corpuscular Hemoglobin 30 pg (25-35) Mean Corpuscular Hemoglobin Concent 31 g/dL (31-37) Red Cell Distribution Width 15.1 % (11.5-14.5) H Platelet Count 183 x10^3/uL (140-400) Neutrophils (%) (Auto) 62 % (31-73) Lymphocytes (%) (Auto) 24 % (24-48) Monocytes (%) (Auto) 10 % (0-9) H Eosinophils (%) (Auto) 3 % (0-3) Basophils (%) (Auto) 1 % (0-3) Neutrophils # (Auto) 5.7 x10^3uL (1.8-7.7) Lymphocytes # (Auto) 2.2 x10^3/uL (1.0-4.8) Monocytes # (Auto) 0.9 x10^3/uL (0.0-1.1) Eosinophils # (Auto) 0.3 x10^3/uL (0.0-0.7) Basophils # (Auto) 0.1 x10^3/uL (0.0-0.2) Sodium Level 140 mmol/L (136-145) Potassium Level 5.5 mmol/L (3.5-5.1) H Chloride Level 106 mmol/L (98-107) Carbon Dioxide Level 30 mmol/L (21-32) Anion Gap 4 (6-14) L Blood Urea Nitrogen 29 mg/dL (8-26) H Creatinine 1.5 mg/dL (0.7-1.3) H Estimated GFR (Cockcroft-Gault) 45.4 BUN/Creatinine Ratio 19 (6-20) Glucose Level 84 mg/dL (70-99) Calcium Level 8.3 mg/dL (8.5-10.1) L Total Bilirubin 0.2 mg/dL (0.2-1.0) Aspartate Amino Transferase (AST) 31 U/L (15-37) Alanine Aminotransferase (ALT) 35 U/L (16-63) Alkaline Phosphatase 79 U/L (46-116) Total Protein 7.0 g/dL (6.4-8.2) Albumin 2.9 g/dL (3.4-5.0) L Albumin/Globulin Ratio 0.7 (1.0-1.7) L Current Medications: I have reviewed the current psychotropics carefully including drug interactions. Risk benefit ratio favors no change other than as noted in my dictated progress note. 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
[2020-10-08] MEDS: amLODIPine BESYLATE 5 MG TABLET PO SCH (08:35)
[2020-10-08] MEDS: ALLOPURINOL 100 MG TABLET. PO SCH (08:35)
[2020-10-08] MEDS: MEMANTINE 10 MG TABLET. PO SCH ×2 (08:35→20:01)
[2020-10-08] MEDS: PRIMIDONE 50 MG TABLET PO SCH ×2 (08:35→19:59)
[2020-10-08] MEDS: LITHIUM CARBONATE 300 MG TABLET PO SCH ×2 (08:35→20:01)
[2020-10-08] MEDS: GABAPENTIN 300 MG CAPSULE. PO SCH ×2 (08:35→20:01)
[2020-10-08] MEDS: QUEtiapine 50 MG TABLET. PO SCH ×2 (08:35→19:59)
--- NOTE | 2020-10-08 09:24 | NUR ---
Patient is calm and cooperative sitting in chair in room at time of assessment. Patient takes medications whole just fine. Patient has no concerns or complaints at this time.
--- NOTE | 2020-10-08 11:13 | NUR ---
Patient is more anxious today than she has been. She seems to be more jittery and keeps talking about how she is confused about why shes here and what is going on. She thinks her family is upset with her and that is why they haven't come to visit her. We talked about how the pandemic has made it hard for people to come here. We were able to get her on the phone to talk to her and this made her happier. She still is anxious and confused at times. Addendum: 10/08/20 at 1513 by ALEJANDRO REICH RN Note in wrong patient chart. Please disregard.
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
--- NOTE | 2020-10-08 15:34 | NUR ---
SW attempted outreach to [facility] (P)[phone] (F) [phone] to discuss d/c plans. LVM with call back number for return call. Updates were faxed. SW will follow up to confirm faxed was received and confirm d/c date.
--- NOTE | 2020-10-08 15:44 | NUR ---
JUAN FRANCISCO received call from Socorro, daughter/POA, inquiring about Johnny's progress. Provided update including tentative d/c date of 10/10/20 to return to [facility]. Socorro expressed concerns about Johnny not being ready for d/c as he continues to be rambling during phone conversations and talks about going home or to [facility]. Explained to Socorro that Johnny's level of aggression has improved with decreased verbal/physical behaviors, he is medication compliant, sleeping an average of 7.5 hours at night, and has not required a prn zyprexa for over a week. Also explained that it can take 6-8 weeks for medications to become fully therapeutic and that Dr. Andra Gordon, [facility]'s psychiatrist, can follow Johnny on an out patient basis. JUAN FRANCISCO met with Johnny to discuss d/c with plan to return to his apartment at [facility]. While Johnny did speak about going home and the desire to travel to [facility], he was agreeable with returning to [facility] at this time. Johnny expressed appreciation for the visit. JUAN FRANCISCO will continue to coordinate upcoming d/c.
[2020-10-08 15:48] VITALS: BP 113/67
[2020-10-08] MEDS: MIRTAZAPINE 7.5 MG TABLET. PO SCH (19:58)
[2020-10-08] MEDS: ATORVASTATIN CALCIUM 20 MG TABLET PO SCH (20:00)
[2020-10-08] MEDS: DIVALPROEX ER 500 MG TAB.ER.24H PO SCH (20:01)
[2020-10-08] MEDS: traZODone 50 MG TABLET. PO PRN (20:01)
--- NOTE | 2020-10-08 21:05 | PDOC ---
Exam Note: Osito Note: Please also refer to the separate dictated note~for this date of service dictated separately.~Patient seen individually. Discussed the patient with Nursing staff reviewed the chart.~Reviewed interim history and current functioning. Reviewed vital signs,~Labs/ Radiology~and current medications noted below. Continue current treatment with the changes noted in the dictated addendum note Assessment: Vital Signs/I&O: Vital Signs Date Time Temp Pulse Resp B/P (MAP) Pulse Ox O2 Delivery O2 Flow Rate FiO2 10/08/20 15:48 97.9 62 16 113/67 (82) 96 10/08/20 06:03 Room Air I & O 10/07/20 10/07/20 10/08/20 15:00 23:00 07:00 Intake Total 360 ml 480 ml Balance 360 ml 480 ml Labs: Laboratory Tests Test 10/08/20 05:36 White Blood Count 9.2 x10^3/uL (4.0-11.0) Red Blood Count 3.84 x10^6/uL (4.30-5.70) L Hemoglobin 11.6 g/dL (13.0-17.5) L Hematocrit 37.4 % (39.0-53.0) L Mean Corpuscular Volume 97 fL (79-100) Mean Corpuscular Hemoglobin 30 pg (25-35) Mean Corpuscular Hemoglobin Concent 31 g/dL (31-37) Red Cell Distribution Width 15.1 % (11.5-14.5) H Platelet Count 183 x10^3/uL (140-400) Neutrophils (%) (Auto) 62 % (31-73) Lymphocytes (%) (Auto) 24 % (24-48) Monocytes (%) (Auto) 10 % (0-9) H Eosinophils (%) (Auto) 3 % (0-3) Basophils (%) (Auto) 1 % (0-3) Neutrophils # (Auto) 5.7 x10^3uL (1.8-7.7) Lymphocytes # (Auto) 2.2 x10^3/uL (1.0-4.8) Monocytes # (Auto) 0.9 x10^3/uL (0.0-1.1) Eosinophils # (Auto) 0.3 x10^3/uL (0.0-0.7) Basophils # (Auto) 0.1 x10^3/uL (0.0-0.2) Sodium Level 140 mmol/L (136-145) Potassium Level 5.5 mmol/L (3.5-5.1) H Chloride Level 106 mmol/L (98-107) Carbon Dioxide Level 30 mmol/L (21-32) Anion Gap 4 (6-14) L Blood Urea Nitrogen 29 mg/dL (8-26) H Creatinine 1.5 mg/dL (0.7-1.3) H Estimated GFR (Cockcroft-Gault) 45.4 BUN/Creatinine Ratio 19 (6-20) Glucose Level 84 mg/dL (70-99) Calcium Level 8.3 mg/dL (8.5-10.1) L Total Bilirubin 0.2 mg/dL (0.2-1.0) Aspartate Amino Transferase (AST) 31 U/L (15-37) Alanine Aminotransferase (ALT) 35 U/L (16-63) Alkaline Phosphatase 79 U/L (46-116) Total Protein 7.0 g/dL (6.4-8.2) Albumin 2.9 g/dL (3.4-5.0) L Albumin/Globulin Ratio 0.7 (1.0-1.7) L [place] Level 0.7 mmol/L (0.6-1.2) [place] Last Dose Date 10/07/20 [place] Last Dose Time 2100 Current Medications: I have reviewed the current psychotropics carefully including drug interactions. Risk benefit ratio favors no change other than as noted in my dictated progress note. 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
[2020-10-09 06:29] VITALS: BP 145/76
--- NOTE | 2020-10-09 07:34 | PDOC ---
Exam Note: Osito Note: This note is a late entry for 10/08/2020 covers elements not covered in my initial note. Subjective: The patient was reviewed on telehealth rounds in the morning of 10/08/2020 for treatment team meeting with Marlene (oncology social work), Yamilex, activity therapy, and Jess RN. [facility] for admission and discharges following quarantine for Covid-19 exposure. Discussed with nursing staff, reviewed the chart. Reviewed the patients diagnoses and progress. The patient slept 5-1/2 hours previous night. He is less manic, grandiose, psychotic, somewhat withdrawn, appears somewhat depressed at times. Review of Systems: Patient is somewhat hard of hearing. No CV, , pulmonary, eye system symptoms on review. Mental Status Exam: The patient is lying in bed as I met with him. He is oriented to himself and situation. Speech has some latency, coherent. Abstraction is fair. Computation is impaired. Language function intact. Attention span is short. No active suicidal or homicidal ideation. Laboratory Data: Reviewed. Impression: Bipolar disorder manic with psychotic features. Anxiety disorder unspecified. Impulse control disorder unspecified. Plan: No change from initial note. Continue current psychotropics. [place] level is 0.7. Valproic acid level is therapeutic at 52. Maintain rest of the psychotropics unchanged. Adjust further as clinically indicated. Transition to [facility] this week. Assessment: Vital Signs/I&O: Vital Signs Date Time Temp Pulse Resp B/P (MAP) Pulse Ox O2 Delivery O2 Flow Rate FiO2 10/09/20 06:29 97.0 92 16 145/76 (99) 97 10/08/20 06:03 Room Air I & O 10/08/20 10/08/20 10/09/20 15:00 23:00 07:00 Intake Total 1050 ml 585 ml Balance 1050 ml 585 ml Current Medications: I have reviewed the current psychotropics carefully including drug interactions. Risk benefit ratio favors no change other than as noted in my dictated progress note. 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
[2020-10-09] MEDS: ALLOPURINOL 100 MG TABLET. PO SCH (08:14)
[2020-10-09] MEDS: amLODIPine BESYLATE 5 MG TABLET PO SCH (08:14)
[2020-10-09] MEDS: GABAPENTIN 300 MG CAPSULE. PO SCH ×2 (08:15→19:52)
[2020-10-09] MEDS: LITHIUM CARBONATE 300 MG TABLET PO SCH ×2 (08:15→19:51)
[2020-10-09] MEDS: PRIMIDONE 50 MG TABLET PO SCH ×2 (08:15→19:52)
[2020-10-09] MEDS: QUEtiapine 50 MG TABLET. PO SCH ×2 (08:16→19:50)
[2020-10-09] MEDS: MEMANTINE 10 MG TABLET. PO SCH ×2 (08:16→19:52)
--- NOTE | 2020-10-09 13:35 | NUR ---
Patient has been calm, compliant, mildly confused, and grandiose this shift. Patient stated this morning that it is too cold outside and that he was going to buy a house on [address]. He states that he bought six houses there a while back and that he should have kept them. Patient has been wandering in the hallway, socializing with peers. He is currently resting in bed. Will continue to monitor.
--- NOTE | 2020-10-09 15:41 | NUR ---
JUAN FRANCISCO faxed updates to Marcia JOYNER at the [facility] ([phone] ([phone] and left message asking for return call to discuss d/c planning. Marcia contacted JUAN FRANCISCO back and said that they could take Johnny back on Sat as they were in transition to new owners. JUAN FRANCISCO will notify pt dtr/DPOA and arrange for transportation as [facility] does not have their own transport.
[2020-10-09 15:49] VITALS: BP 139/63
[2020-10-09] MEDS: ATORVASTATIN CALCIUM 20 MG TABLET PO SCH (19:50)
[2020-10-09] MEDS: DIVALPROEX ER 500 MG TAB.ER.24H PO SCH (19:53)
[2020-10-09] MEDS: MIRTAZAPINE 7.5 MG TABLET. PO SCH (19:53)
--- NOTE | 2020-10-09 20:51 | PDOC ---
Exam Note: Osito Note: Please also refer to the separate dictated note~for this date of service dictated separately.~Patient seen individually. Discussed the patient with Nursing staff reviewed the chart.~Reviewed interim history and current functioning. Reviewed vital signs,~Labs/ Radiology~and current medications noted below. Continue current treatment with the changes noted in the dictated addendum note Assessment: Vital Signs/I&O: Vital Signs Date Time Temp Pulse Resp B/P (MAP) Pulse Ox O2 Delivery O2 Flow Rate FiO2 10/09/20 15:49 98.1 61 20 139/63 (88) 98 Room Air I & O 10/08/20 10/08/20 10/09/20 15:00 23:00 07:00 Intake Total 1050 ml 585 ml Balance 1050 ml 585 ml Current Medications: I have reviewed the current psychotropics carefully including drug interactions. Risk benefit ratio favors no change other than as noted in my dictated progress note. 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
--- NOTE | 2020-10-09 21:42 | NUR ---
Patient was in bed on assumption of care. Nurse woke patient up to take his HS medications. He was compliant although he did have some difficulty getting the medications from the cup to his mouth. Patient is calm, appropriate and pleasant. No adverse behaviors or anxiety noted at this time.
[2020-10-10 05:58] VITALS: BP 150/82
[2020-10-10] MEDS: QUEtiapine 50 MG TABLET. PO SCH ×2 (09:21→19:52)
[2020-10-10] MEDS: MEMANTINE 10 MG TABLET. PO SCH ×2 (09:22→19:54)
[2020-10-10] MEDS: amLODIPine BESYLATE 5 MG TABLET PO SCH (09:22)
[2020-10-10] MEDS: LITHIUM CARBONATE 300 MG TABLET PO SCH ×2 (09:23→19:55)
[2020-10-10] MEDS: ALLOPURINOL 100 MG TABLET. PO SCH (09:23)
[2020-10-10] MEDS: GABAPENTIN 300 MG CAPSULE. PO SCH ×2 (09:23→19:52)
[2020-10-10] MEDS: PRIMIDONE 50 MG TABLET PO SCH ×2 (09:24→19:53)
--- NOTE | 2020-10-10 09:51 | PDOC ---
Exam Note: Osito Note: This note is a late entry for 10/09/2020 covers elements not covered in my initial note. Subjective: The patient was reviewed on telehealth rounds in the evening of 10/09/2020 with Viri HARO. Discussed with nursing staff, reviewed the chart. The patient slept 7-1/4 hours previous night. [place] level on 10/08 was 0.7. Overall the patient is doing better. He is somewhat withdrawn, much less manic and grandiose, less threatening, intermittently depressed but improving. Review of Systems: Patient is somewhat hard of hearing. No CV, , pulmonary, eye system symptoms on review. Mental Status Exam: The patient was in bed on rounds and assessment was per nursing observation. He is oriented to himself and situation. Speech during the day has been coherent, less pressured. Abstraction is fair. Computation is impaired. Language function intact. Attention span is short. Mood and affect somewhat withdrawn. Laboratory Data: Reviewed. Impression: Bipolar disorder manic with psychotic features. Anxiety disorder unspecified. Impulse control disorder unspecified. Plan: No change from initial note. [place] level is stable at 0.7 mEq/L. Valproic acid level is therapeutic. We will keep it all unchanged for now. Assessment: Vital Signs/I&O: Vital Signs Date Time Temp Pulse Resp B/P (MAP) Pulse Ox O2 Delivery O2 Flow Rate FiO2 10/10/20 09:22 77 150/82 10/10/20 05:58 97.4 18 95 Room Air I & O 10/09/20 10/09/20 10/10/20 15:00 23:00 07:00 Intake Total 960 ml 600 ml Balance 960 ml 600 ml Current Medications: I have reviewed the current psychotropics carefully including drug interactions. Risk benefit ratio favors no change other than as noted in my dictated progress note. 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
--- NOTE | 2020-10-10 10:02 | NUR ---
JUAN FRANCISCO had phone conversations with NA Quintanilla/anna marie, on 10/09 and 10/10, to update and coordinate d/c. [facility] is able to accept Johnny back on 10/13/20. Socorro preferred for transport to be arranged and was agreeable to $75 charge from [facility] ([phone]). Transport is arranged for 10/13/20 with waste picker time at 10am. Left message for Uma, securities and real estate director at [facility], to confirm she had all the paperwork she needed in place for Johnny's return. Awaiting return phone call.
--- NOTE | 2020-10-10 10:07 | NUR ---
[facility] Social Work Discharge Planning Form Patient Name AVELINA CROCKER Admit Date: 09/07/2020 DISCHARGE PLAN Discharge Destination: [facility] Assessment: N/A Transportation: [facility] ([phone]) will grape picker at 10am on 10/13/20. Special Instructions/Notes: Upon return to [facility], arrange for f/u with house physician and house psychiatrist in 7-10 days. DISCHARGE TO FACILITY Facility: [facility] Address: [address] [address] Contact Name: radha Eaton director Contact Name: nurse Izabela PCP: Dr. Woodall [phone], (fax) Psychiatrist: Dr. Gordon [phone], (fax)
[2020-10-10 15:46] VITALS: BP 110/64
--- NOTE | 2020-10-10 18:15 | NUR ---
Patient has been calm, compliant, mildly confused, and withdrawn this shift. Patient has been mostly withdrawn to his room and occasionally wandering in the hallway, socializing with peers. Will continue to monitor.
[2020-10-10] MEDS: ATORVASTATIN CALCIUM 20 MG TABLET PO SCH (19:54)
[2020-10-10] MEDS: MIRTAZAPINE 7.5 MG TABLET. PO SCH (19:54)
[2020-10-10] MEDS: DIVALPROEX ER 500 MG TAB.ER.24H PO SCH (19:54)
--- NOTE | 2020-10-10 21:45 | NUR ---
Patient is calm and medication compliant. He has been walking in the hallways and in his room. He has not been anxious or agitated.
[2020-10-11 05:58] VITALS: BP 118/65
[2020-10-11] MEDS: ALLOPURINOL 100 MG TABLET. PO SCH (08:37)
[2020-10-11] MEDS: MEMANTINE 10 MG TABLET. PO SCH ×2 (08:38→19:33)
[2020-10-11] MEDS: amLODIPine BESYLATE 5 MG TABLET PO SCH (08:38)
[2020-10-11] MEDS: QUEtiapine 50 MG TABLET. PO SCH (08:38)
[2020-10-11] MEDS: LITHIUM CARBONATE 300 MG TABLET PO SCH ×2 (08:38→19:32)
[2020-10-11] MEDS: GABAPENTIN 300 MG CAPSULE. PO SCH ×2 (08:39→19:31)
[2020-10-11] MEDS: PRIMIDONE 50 MG TABLET PO SCH ×2 (08:39→19:33)
--- NOTE | 2020-10-11 12:12 | NUR ---
Johnny's discharge has been postponed until 10/16 or 10/17 due to weak spell, leaning into wall as Johnny was ambulating this morning. JUAN FRANCISCO and FIRE TOWER KEEPER provided SBA to Johnny to a chair in his room. He appeared sweaty and eyes were misted. Call placed to Socorro, daughter/POA, to inform and she was agreeable. Left message for Uma, admissions at the [facility], to inform with request for return phone call to confirm she received JUAN FRANCISCO's message. Message [facility] to cancel transport that had been arranged for 10/13/20. Addendum: 10/11/20 at 1534 by ALYSIA CHICAS Follow up call to Uma at [facility] and informed of Johnny's discharge being postponed. JUAN FRANCISCO will update Uma early next week.
--- NOTE | 2020-10-11 17:34 | NUR ---
Patient has been calm, compliant, mildly confused, and withdrawn this shift. Patient has been mostly withdrawn to his room and occasionally wandering in the hallway, socializing with staff. He had an episode of muscle weakness and lightheadedness while ambulating in the frances this morning after breakfast, was assisted to his room and into bed, stated feeling better after a short nap. Will continue to monitor.
[2020-10-11 18:15] VITALS: BP 126/80
[2020-10-11] MEDS: MIRTAZAPINE 7.5 MG TABLET. PO SCH (19:31)
[2020-10-11] MEDS: DIVALPROEX ER 500 MG TAB.ER.24H PO SCH (19:32)
[2020-10-11] MEDS: ATORVASTATIN CALCIUM 20 MG TABLET PO SCH (19:33)
--- NOTE | 2020-10-11 22:21 | PDOC ---
Exam Note: Osito Note: This is a late entry for DOS 10/11/2020. Please also refer to the separate dictated note~for this date of service dictated separately.~Patient seen individually. Discussed the patient with Nursing staff reviewed the chart.~Reviewed interim history and current functioning. Reviewed vital signs,~Labs/ Radiology~and current medications noted below. Continue current treatment with the changes noted in the dictated addendum note Assessment: Vital Signs/I&O: Vital Signs Date Time Temp Pulse Resp B/P (MAP) Pulse Ox O2 Delivery O2 Flow Rate FiO2 10/11/20 18:15 98.1 60 16 126/80 (95) 99 10/11/20 05:58 Room Air I & O 10/10/20 10/10/20 10/11/20 15:00 23:00 07:00 Intake Total 720 ml 480 ml Balance 720 ml 480 ml Current Medications: I have reviewed the current psychotropics carefully including drug interactions. Risk benefit ratio favors no change other than as noted in my dictated progress note. 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
--- NOTE | 2020-10-11 22:23 | PDOC ---
Exam Note: Osito Note: This is a late entry for 10/10/2020. Please also refer to the separate dictated note~for this date of service dictated separately.~Patient seen individually. Discussed the patient with Nursing staff reviewed the chart.~Reviewed interim history and current functioning. Reviewed vital signs,~Labs/ Radiology~and cur rent medications noted below. Continue current treatment with the changes noted in the dictated addendum note Assessment: Vital Signs/I&O: Vital Signs Date Time Temp Pulse Resp B/P (MAP) Pulse Ox O2 Delivery O2 Flow Rate FiO2 10/11/20 18:15 98.1 60 16 126/80 (95) 99 10/11/20 05:58 Room Air I & O 10/10/20 10/10/20 10/11/20 14:59 22:59 06:59 Intake Total 720 ml 480 ml Balance 720 ml 480 ml Current Medications: I have reviewed the current psychotropics carefully including drug interactions. Risk benefit ratio favors no change other than as noted in my dictated progress note. 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
[2020-10-12 05:02] VITALS: BP 144/75
[2020-10-12] MEDS: ALLOPURINOL 100 MG TABLET. PO SCH (07:31)
[2020-10-12] MEDS: GABAPENTIN 300 MG CAPSULE. PO SCH ×2 (07:31→19:53)
[2020-10-12] MEDS: amLODIPine BESYLATE 5 MG TABLET PO SCH (07:31)
[2020-10-12] MEDS: MEMANTINE 10 MG TABLET. PO SCH ×2 (07:31→19:54)
[2020-10-12] MEDS: LITHIUM CARBONATE 300 MG TABLET PO SCH ×2 (07:31→19:54)
[2020-10-12] MEDS: PRIMIDONE 50 MG TABLET PO SCH ×2 (07:31→19:54)
--- NOTE | 2020-10-12 07:48 | PDOC ---
Exam Note: Osito Note: This note is a late entry for 10/10/2020 covers elements not covered in my initial note. Subjective: The patient was reviewed on telehealth rounds in the evening of 10/10/2020 with Sterling HARO. Discussed with nursing staff, reviewed the chart. The patient slept 9-3/4 hours previous night. Overall the patient has been less anxious, labile, somewhat withdrawn at times, but not overtly depressed. Last lithium level was 0.7 and we will repeat it again in a day. He has been wandering the unit but redirectable. Review of Systems: Patient is somewhat hard of hearing. No CV, , pulmonary, eye system symptoms on review. Mental Status Exam: The patient was oriented to himself and situation. He was quite interactive, pleasant, not threatening or grandiose. Paranoia appears to have subsided. Speech has been coherent, less pressured. Abstraction is fair. Computation is impaired. Language function intact. Attention span is short. Mood and affect somewhat withdrawn. No suicidal or homicidal ideation. He is somewhat distractible. Laboratory Data: Reviewed. Impression: Bipolar disorder manic with psychotic features. Anxiety disorder unspecified. Impulse control disorder unspecified. Plan: No change from initial note. Assessment: Vital Signs/I&O: Vital Signs Date Time Temp Pulse Resp B/P (MAP) Pulse Ox O2 Delivery O2 Flow Rate FiO2 10/12/20 07:31 55 144/75 10/12/20 05:02 98.5 16 97 10/11/20 05:58 Room Air I & O 10/11/20 10/11/20 10/12/20 15:00 23:00 07:00 Intake Total 480 ml 360 ml Balance 480 ml 360 ml Current Medications: I have reviewed the current psychotropics carefully including drug interactions. Risk benefit ratio favors no change other than as noted in my dictated progress note. 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
--- NOTE | 2020-10-12 08:13 | PDOC ---
Exam Note: Osito Note: This note is a late entry for 10/11/2020 covers elements not covered in my initial note. Subjective: The patient was reviewed on telehealth rounds in the morning of 10/11/2020 for a treatment team meeting with Carolyn Noble and Verónica (social work msw), Ally, activity therapy, and Sterling HARO. Discussed with nursing staff, reviewed the chart. The patient slept 8 hours previous night. Per report from Carolyn Noble, the patient has appeared somewhat sedated, leaning to one side. Apparently the daughter had a telephone conversation with the patient and told the staff that she felt he was still manic, was concerned about tentative discharge for Thursday back to [facility]. I met with the patient again on telehealth rounds in the evening in addition to treatment team meeting in the morning. Review of Systems: Patient is somewhat hard of hearing. No CV, , pulmonary, eye system symptoms on review. Mental Status Exam: The patient was oriented to himself and situation. Speech is coherent, at times a little pressured. Abstraction is fair. Computation is impaired. Language function intact. Attention span is short. Mood and affect at times somewhat withdrawn, other times he appears a little gregarious, hyperverbal. Laboratory Data: Reviewed. Impression: Bipolar disorder manic with psychotic features. Anxiety disorder unspecified. Impulse control disorder unspecified. Plan: We had a lengthy discussion about treatment options. We will go ahead and stop the Seroquel since this could be causing sedation and we will have to reassess whether we restart at a lower dosage. Repeat lithium level is awaited. Continue rest of the psychotropics. Postpone discharge to next week Thursday or Thursday. Assessment: Vital Signs/I&O: Vital Signs Date Time Temp Pulse Resp B/P (MAP) Pulse Ox O2 Delivery O2 Flow Rate FiO2 10/12/20 07:31 55 144/75 10/12/20 05:02 98.5 16 97 10/11/20 05:58 Room Air I & O 10/11/20 10/11/20 10/12/20 15:00 23:00 07:00 Intake Total 480 ml 360 ml Balance 480 ml 360 ml Current Medications: I have reviewed the current psychotropics carefully including drug interactions. Risk benefit ratio favors no change other than as noted in my dictated progress note. 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
--- NOTE | 2020-10-12 10:04 | NUR ---
Patient reading newspaper in hallway at time of assessment. Patient alert and oriented today. He tells me why he was here and that his medications were messed up and he is glad we are fixing them.. Patient smiling, but still seems slightly more depressed than usual. There were several other patients that were discharged and Johnny is feeling lonely with no one to talk to. He also is wanting to go home so he is anxiously waiting. Patient takes medications whole fine with no problems. No further concerns or complaints at this time.
[2020-10-12 15:52] VITALS: BP 136/72
[2020-10-12] MEDS: DIVALPROEX ER 500 MG TAB.ER.24H PO SCH (19:53)
[2020-10-12] MEDS: ATORVASTATIN CALCIUM 20 MG TABLET PO SCH (19:53)
[2020-10-12] MEDS: MIRTAZAPINE 7.5 MG TABLET. PO SCH (19:53)
[2020-10-12] MEDS: traZODone 50 MG TABLET. PO PRN (19:54)
--- NOTE | 2020-10-12 20:43 | NUR ---
Nursing Note: Pt withdrawn to room, lying in bed at shift change. Pt calm, pleasant, and interactive when approached. Pt cooperative with assessment and compliant with medications administered whole. No agitation or aggression noted at this time.
[2020-10-13 06:18] VITALS: BP 136/77
[2020-10-13] MEDS: GABAPENTIN 300 MG CAPSULE. PO SCH ×2 (07:50→19:36)
[2020-10-13] MEDS: ALLOPURINOL 100 MG TABLET. PO SCH (07:51)
[2020-10-13] MEDS: amLODIPine BESYLATE 5 MG TABLET PO SCH (07:51)
[2020-10-13] MEDS: PRIMIDONE 50 MG TABLET PO SCH ×2 (07:51→19:37)
[2020-10-13] MEDS: LITHIUM CARBONATE 300 MG TABLET PO SCH ×2 (07:52→19:37)
[2020-10-13] MEDS: MEMANTINE 10 MG TABLET. PO SCH ×2 (07:52→19:36)
[2020-10-13 15:48] VITALS: BP 117/56
--- NOTE | 2020-10-13 18:11 | NUR ---
Pt up adl in halls with mask. Has been pleasant and compliant.
--- NOTE | 2020-10-13 18:22 | PN ---
DATE: 10/13/2020 SUBJECTIVE: The patient was evaluated by telehealth, met with the staff, chart reviewed, and covering for Dr. Macias. Staff reports no major behavior problems. He continues to be anxious, unsteady gait, but no falls. Also, he has some hearing loss. The patient's main complaint is that he is constipated and also feeling sad because he is not able to see his friends and family. PHYSICAL EXAMINATION: VITAL SIGNS: Stable, not having any physical complaints. OBSERVATION: The patient's medications have been reviewed. The patient is not having any side effects to medications. MENTAL STATUS: He is alert, oriented to surroundings, slow to respond to questions, has some psychomotor retardation. His speech is monosyllabic, decreased rate and rhythm. Affect and mood showed that he is withdrawn, appears depressed, but no vegetative symptoms. He is oriented to surroundings. The patient is able to hold a reasonable conversation. IMPRESSION: 1. Bipolar disorder, manic with psychotic features. 2. Anxiety disorder, unspecified. 3. Impulse control disorder, unspecified. PLAN: Continue with the current treatment plan. The patient is scheduled for discharge on 10/16/2020. GABE MACHUCA MD DR: KODY/oliver JOB#: [id number] / [id number]
[2020-10-13] MEDS: DIVALPROEX ER 500 MG TAB.ER.24H PO SCH (19:36)
[2020-10-13] MEDS: traZODone 50 MG TABLET. PO PRN (19:36)
[2020-10-13] MEDS: MIRTAZAPINE 7.5 MG TABLET. PO SCH (19:36)
[2020-10-13] MEDS: ATORVASTATIN CALCIUM 20 MG TABLET PO SCH (19:36)
--- NOTE | 2020-10-13 20:29 | NUR ---
Nursing Note: Pt withdrawn to room, lying in bed at shift change. Pt calm, pleasant, and interactive when approached. Pt cooperative with assessment and compliant with medications administered whole.
[2020-10-14 05:29] VITALS: BP 120/66
[2020-10-14] MEDS: amLODIPine BESYLATE 5 MG TABLET PO SCH (08:14)
[2020-10-14] MEDS: GABAPENTIN 300 MG CAPSULE. PO SCH ×2 (08:14→20:05)
[2020-10-14] MEDS: ALLOPURINOL 100 MG TABLET. PO SCH (08:15)
[2020-10-14] MEDS: LITHIUM CARBONATE 300 MG TABLET PO SCH ×2 (08:16→20:06)
[2020-10-14] MEDS: PRIMIDONE 50 MG TABLET PO SCH ×2 (08:16→20:07)
[2020-10-14] MEDS: MEMANTINE 10 MG TABLET. PO SCH ×2 (08:16→20:05)
[2020-10-14 10:21] LABS: BASO # 0.1 x10^3/uL (0.0-0.2); BASO % 1 % (0-3); EOS # 0.2 x10^3/uL (0.0-0.7); EOS % 3 % (0-3); HEMATOCRIT 38.7 % (39.0-53.0); HEMOGLOBIN 12.2 g/dL (13.0-17.5); LYMPH # 1.9 x10^3/uL (1.0-4.8); LYMPH % 20 % (24-48); MEAN CORPUSCULAR HEMOGLOBIN 31 pg (25-35); MEAN CORPUSCULAR HGB CONC 32 g/dL (31-37); MEAN CORPUSCULAR VOLUME 98 fL (79-100); MONO # 0.8 x10^3/uL (0.0-1.1); MONO % 8 % (0-9); NEUT # 6.3 x10^3uL (1.8-7.7); NEUT % 68 % (31-73); PLATELET COUNT 177 x10^3/uL (140-400); RED BLOOD COUNT 3.96 x10^6/uL (4.30-5.70); RED CELL DISTRIBUTION WIDTH 15.4 % (11.5-14.5); WHITE BLOOD COUNT 9.2 x10^3/uL (4.0-11.0)
[2020-10-14 10:31] LABS: ALBUMIN/GLOBULIN RATIO 0.7 (1.0-1.7); CALCIUM 8.7 mg/dL (8.5-10.1); CREATININE 1.6 mg/dL (0.7-1.3); GFR 42.1; POTASSIUM 4.8 mmol/L (3.5-5.1); TOTAL BILIRUBIN 0.3 mg/dL (0.2-1.0); TOTAL PROTEIN 7.3 g/dL (6.4-8.2)
--- NOTE | 2020-10-14 12:59 | PN ---
DATE: 10/14/2020 SUBJECTIVE: The patient was seen today by telehealth, met with the staff, chart reviewed and also covering for Dr. Macias. Staff reports no major behavior problems. He is able to walk, still feeling anxious, tense. OBJECTIVE: VITAL SIGNS: Temperature 97.6, blood pressure 120/66, pulse 50, respirations 18, O2 sat 96%. GENERAL: Slept about 9 hours last night. The patient's appetite improved. NEUROLOGIC: His mental status, he is alert, oriented to surroundings, still anxious, nervous and no evidence of acute confusion. His speech is clear, monosyllabic, decreased rate and rhythm. Affect and mood showed he is not depressed, having difficulty with comprehension, also problems with short-term memory. The patient is also exhibiting some psychomotor retardation. The patient denies feeling depressed. MEDICATIONS: Reviewed, currently not having any major side effects. LABORATORY DATA: Reviewed. ASSESSMENT: 1. Bipolar disorder, manic with psychotic features. 2. Anxiety disorder, unspecified. 3. Impulse control disorder, unspecified. PLAN: Continue with the treatment. The patient will be seen by Dr. Macias tomorrow. GABE MACHUCA MD DR: KODY/oliver JOB#: [id number] / [id number]
[2020-10-14 14:21] VITALS: BP 124/68
[2020-10-14 15:00] VITALS: BP 124/68
--- NOTE | 2020-10-14 16:52 | NUR ---
Pt up adl in halls and room. Has been on pleasant spirits. Compliant with meds and cares.
[2020-10-14] MEDS: DIVALPROEX ER 500 MG TAB.ER.24H PO SCH (20:05)
[2020-10-14] MEDS: MIRTAZAPINE 7.5 MG TABLET. PO SCH (20:06)
[2020-10-14] MEDS: ATORVASTATIN CALCIUM 20 MG TABLET PO SCH (20:07)
--- NOTE | 2020-10-14 22:13 | NUR ---
Patient in bed upon assumption of care. Patient asleep but was pleasant and medication compliant when woke up to take his medications. Patient denied pain and then immediately laid back down to sleep. No adverse behaviors noted this shift.
[2020-10-15] MEDS ORDERED: OLAN5TAB99 PO (02:04)
[2020-10-15 05:38] VITALS: BP 132/75
[2020-10-15] MEDS: ALLOPURINOL 100 MG TABLET. PO SCH (08:56)
[2020-10-15] MEDS: PRIMIDONE 50 MG TABLET PO SCH ×2 (08:56→20:05)
[2020-10-15] MEDS: amLODIPine BESYLATE 5 MG TABLET PO SCH (08:56)
[2020-10-15] MEDS: LITHIUM CARBONATE 300 MG TABLET PO SCH ×2 (08:56→20:06)
[2020-10-15] MEDS: MEMANTINE 10 MG TABLET. PO SCH ×2 (08:57→20:05)
[2020-10-15] MEDS: GABAPENTIN 300 MG CAPSULE. PO SCH ×2 (08:57→20:05)
--- NOTE | 2020-10-15 09:47 | NUR ---
[facility] Social Work Discharge Planning Form Patient Name AVELINA CROCKER Admit Date: 09/07/2020 DISCHARGE PLAN Discharge Destination: [facility] Assessment: N/A Transportation: [facility] ([phone]) will apple picker at 11am on 10/16/20. Special Instructions/Notes: Upon return to [facility], arrange for f/u with house physician and house psychiatrist in 7-10 days. DISCHARGE TO FACILITY Facility: [facility] Address: [address] [address] Contact Name: radha Eaton director Contact Name: nurse Izabela PCP: Dr. Woodall [phone], (fax) Psychiatrist: Dr. Gordon [phone], (fax)
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
--- NOTE | 2020-10-15 13:07 | NUR ---
Call placed to Gerry Quintanilla, and message left regarding d/c on 10/16/20. Requested return phone call to confirm Socorro receives message, awaiting call. Addendum: 10/15/20 at 1642 by ALYSIA CHICAS Socorro phoned back and was updated. 1:1 with Johnny to discuss d/c arrangements for 10/16/20. Wished Johnny a happy birthday and he shared that he had received 13 birthday cards from his family and that he "cried like a baby." JUAN FRANCISCO acknowledged how much Johnny's family cares for him and wants him to be safe and well cared for.
[2020-10-15 16:00] VITALS: BP 117/68
--- NOTE | 2020-10-15 17:00 | NUR ---
Nursing note: Pt has been pleasant, med compliant and cooperative this shift. Today is pt's birthday, he has expressed how excited he was to receive birthday cards from his family. Pt also states "I think I'm going to make it to 110!" Pt is also excited about getting to d/c tomorrow. Will continue to monitor and report to oncoming shift.
[2020-10-15] MEDS: ATORVASTATIN CALCIUM 20 MG TABLET PO SCH (20:04)
[2020-10-15] MEDS: DIVALPROEX ER 500 MG TAB.ER.24H PO SCH (20:04)
[2020-10-15] MEDS: MIRTAZAPINE 7.5 MG TABLET. PO SCH (20:06)
--- NOTE | 2020-10-15 20:59 | PDOC ---
Exam Note: Osito Note: Please also refer to the separate dictated note~for this date of service dictated separately.~Patient seen individually. Discussed the patient with Nursing staff reviewed the chart.~Reviewed interim history and current functioning. Reviewed vital signs,~Labs/ Radiology~and current medications noted below. Continue current treatment with the changes noted in the dictated addendum note Assessment: Vital Signs/I&O: Vital Signs Date Time Temp Pulse Resp B/P (MAP) Pulse Ox O2 Delivery O2 Flow Rate FiO2 10/15/20 16:00 98.8 60 16 117/68 (84) 96 10/15/20 05:38 Room Air 10/13/20 15:48 96.0 I & O 10/14/20 10/14/20 10/15/20 15:00 23:00 07:00 Intake Total 840 ml 480 ml Balance 840 ml 480 ml Current Medications: I have reviewed the current psychotropics carefully including drug interactions. Risk benefit ratio favors no change other than as noted in my dictated progress note. 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
--- NOTE | 2020-10-15 22:17 | NUR ---
Pt located in his room all evening. Compliant with whole medications. Stated he was excited to be leaving tomorrow.
[2020-10-16 05:55] VITALS: BP 149/79
[2020-10-16 10:09] VITALS: BP 149/79
[2020-10-16] MEDS: ALLOPURINOL 100 MG TABLET. PO SCH (10:09)
[2020-10-16] MEDS: LITHIUM CARBONATE 300 MG TABLET PO SCH ×2 (10:09→10:12)
[2020-10-16] MEDS: GABAPENTIN 300 MG CAPSULE. PO SCH (10:09)
[2020-10-16] MEDS: amLODIPine BESYLATE 5 MG TABLET PO SCH (10:09)
[2020-10-16] MEDS: MEMANTINE 10 MG TABLET. PO SCH (10:09)
[2020-10-16] MEDS: PRIMIDONE 50 MG TABLET PO SCH (10:10)
--- NOTE | 2020-10-16 13:11 | NUR ---
Patient laying in bed at time of assessment. Patient sits up so I can perform heart and lung assessment. Patient has no concerns at this time. Patient will be being discharged today and has no questions. Paperwork reviewed with patient and packet will be sent with him to facility. Patient is coopertive and takes medications whole with no problems. No further concerns or complaints at this time.
--- NOTE | 2020-10-16 13:15 | NUR ---
Tobacco Discharge Note [facility] Tobacco Hotline called with patient prior to discharge, YES Tobacco cessation medication listed with current medications for discharge. YES Transition Record was faxed to follow-up provider with the following elements: Reason for admission, procedures, tests, principal diagnosis, pending studies, patient instructions, 18/05 contact information for unit, phone number to obtain pending test results, plan for follow-up care, physician follow-up, advanced directive information, and medication list with dose, duration and instructions. This information was included in the following documents: History and physical, lab results, study results, progress notes, social work planning form, DC instruction form, patient visit summary, and medication reconciliation form. Date & time record faxed:10/15/20 1400 Record faxed to:[facility] Record discussed with/ report given to:TAHIR Mims
--- NOTE | 2020-10-16 20:44 | PDOC ---
Exam Note: Osito Note: Please also refer to the separate dictated note~for this date of service dictated separately.~Patient seen individually. Discussed the patient with Nursing staff reviewed the chart.~Reviewed interim history and current functioning. Reviewed vital signs,~Labs/ Radiology~and current medications noted below. Continue current treatment with the changes noted in the dictated addendum note Assessment: Vital Signs/I&O: Vital Signs Date Time Temp Pulse Resp B/P (MAP) Pulse Ox O2 Delivery O2 Flow Rate FiO2 10/16/20 10:09 58 149/79 10/16/20 05:55 98.2 16 98 10/15/20 05:38 Room Air 10/13/20 15:48 96.0 I & O 10/15/20 10/15/20 10/16/20 14:59 22:59 06:59 Intake Total 540 ml 0 ml Balance 540 ml 0 ml Current Medications: I have reviewed the current psychotropics carefully including drug interactions. Risk benefit ratio favors no change other than as noted in my dictated progress note. 

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
--- NOTE | 2020-10-17 21:08 | PDOC ---
Exam Note: Soito Note: This note is a late entry for 10/15/2020 covers elements not covered in my initial note. Subjective: The patient was reviewed on telehealth rounds in the morning of 10/15/2020 for a treatment team meeting with Carolyn Noble and Verónica (social media analyst), Ally, activity therapy and Jeanine HARO. Discussed with nursing staff, reviewed the chart. The patients sleeping average is 8 hours average. He slept 6-1/4 hours previous night. Appetite is 80%. [place] level is 0.6. He remains a little withdrawn to his room but no clear psychotic symptoms, suicidal or homicidal ideation. Also discussed with Gely HARO in the evening. Review of Systems: Patient is somewhat hard of hearing. No CV, , pulmonary, eye system symptoms on review. Mental Status Exam: The patient was oriented to himself and situation. Speech is coherent, less pressured. Abstraction is fair. Computation is impaired. Language function intact. Attention span is somewhat. No suicidal or homicidal ideation. Laboratory Data: Reviewed. Impression: Bipolar disorder manic with psychotic features. Anxiety disorder unspecified. Impulse control disorder unspecified. Plan: Continue current psychotropics. Assessment: Vital Signs/I&O: Vital Signs Date Time Temp Pulse Resp B/P (MAP) Pulse Ox O2 Delivery O2 Flow Rate FiO2 10/16/20 10:09 58 149/79 10/16/20 05:55 98.2 16 98 10/15/20 05:38 Room Air 10/13/20 15:48 96.0 I & O 10/16/20 10/16/20 10/17/20 15:00 23:00 07:00 Intake Total 240 ml Balance 240 ml Current Medications: I have reviewed the current psychotropics carefully including drug interactions. Risk benefit ratio favors no change other than as noted in my dictated progress note. 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
== END 2020-10-16 13:25 | DRG 885 ==
LOC: GEROPSY 23:37
PROVIDERS: ADMIT Psychiatry & Neurology Psychiatry; ATTEND Psychiatry & Neurology Psychiatry
DX: F31.64 Bipolar disorder, current episode mixed, severe, with psychotic features (principal); F01.51 Vascular dementia, unspecified severity, with behavioral disturbance; F02.81 Dementia in other diseases classified elsewhere, unspecified severity, with behavioral disturbance; Z20.828 Contact with and (suspected) exposure to other viral communicable diseases; E78.5 Hyperlipidemia, unspecified; F41.9 Anxiety disorder, unspecified; F63.9 Impulse disorder, unspecified; G30.9 Alzheimer's disease, unspecified; I10 Essential (primary) hypertension; K59.00 Constipation, unspecified; M10.9 Gout, unspecified; Z79.899 Other long term (current) drug therapy; Z87.440 Personal history of urinary (tract) infections; Z91.14 Patient's other noncompliance with medication regimen
CPT/HCPCS: 36415; 80048; 80053; 80164; 80178; 81001; 82140; 82306; 82607; 83036; 83540; 83550; 85007; 85025; 85027; 86592; 93005; 99285; 99406; U0003